=== PATIENT | female | born 1985 | race Caucasian/White ===

== ENCOUNTER → 2017-04-25 | Outpatient (CLI) | payer OTHER ==
[~2017-04-25] MED LIST: CEPH-38 PO; HYDR-2890 PO; HYDR-34 PO; NAPR-243 PO; ONDAN4ODT PO; PNT40TEC PO; SULF-222 PO
--- NOTE | 2017-04-25 08:11 | Diagnostic Imaging Report ---
PROCEDURE: US Gallbladder. TECHNIQUE: Multiple real-time grayscale images were obtained over the right upper quadrant in various projections. INDICATION: Right upper quadrant pain. FINDINGS: The liver is normal in size and without focal lesions. There is no intrahepatic or extrahepatic biliary ductal dilatation. The common bile duct measures 5 mm. There is no cholelithiasis, gallbladder wall thickening, or pericholecystic fluid. The right kidney is normal in appearance. There is no ascites. IMPRESSION: Essentially unremarkable right upper quadrant ultrasound. Dictated by: Dictated on workstation # [id number]
== END ==
LOC: RAD 07:08
PROVIDERS: ATTEND Nurse Practitioner Family
DX: R10.11 Right upper quadrant pain (principal)
CPT/HCPCS: 76705

== ENCOUNTER → 2017-05-03 | Outpatient (CLI) | payer OTHER ==
[2017-05-03 11:41] LABS: BASOPHILS % (AUTO) 0 % (0-10); EOSINOPHILS # (AUTO) 0.2 10^3/uL (0.0-0.3); EOSINOPHILS % (AUTO) 2 % (0-10); HEMATOCRIT 39 % (35-52); HEMOGLOBIN 13.4 G/DL (11.5-16.0); LYMPHOCYTES # (AUTO) 2.1 X 10^3 (1.0-4.0); LYMPHOCYTES % (AUTO) 24 % (12-44); MEAN CORPUSCULAR HEMOGLOBIN 29 PG (25-34); MEAN CORPUSCULAR HGB CONC 35 G/DL (32-36); MEAN CORPUSCULAR VOLUME 84 FL (80-99); MEAN PLATELET VOLUME 10.5 FL (7.4-10.4); MONOCYTES # (AUTO) 0.5 X 10^3 (0.0-1.0); MONOCYTES % (AUTO) 5 % (0-12); NEUTROPHILS # (AUTO) 5.9 X 10^3 (1.8-7.8); NEUTROPHILS % (AUTO) 68 % (42-75); PLATELET COUNT 273 10^3/uL (130-400); RED BLOOD COUNT 4.63 10^6/uL (4.35-5.85); RED CELL DISTRIBUTION WIDTH 13.7 % (10.0-14.5); WHITE BLOOD COUNT 8.6 10^3/uL (4.3-11.0)
[2017-05-03 12:07] LABS: ALANINE AMINOTRANSFERASE 15 U/L (0-55); ALBUMIN 4.4 GM/DL (3.2-4.5); ALKALINE PHOSPHATASE 63 U/L (40-136); BILIRUBIN,TOTAL 0.5 MG/DL (0.1-1.0); BUN/CREATININE RATIO 22; CALCIUM 9.5 MG/DL (8.5-10.1); CARBON DIOXIDE 24 MMOL/L (21-32); CHLORIDE 106 MMOL/L (98-107); CREATININE SERUM 0.63 MG/DL (0.60-1.30); GFR ESTIMATED > 60; GLUCOSE 87 MG/DL (70-105); POTASSIUM 3.6 MMOL/L (3.6-5.0); SODIUM 138 MMOL/L (135-145); TOTAL PROTEIN 7.4 GM/DL (6.4-8.2)
== END ==
LOC: LAB 11:23
PROVIDERS: ATTEND Nurse Practitioner Family
DX: R10.30 Lower abdominal pain, unspecified (principal)
CPT/HCPCS: 36415; 80053; 84702; 85025

== ENCOUNTER → 2017-08-12 | Outpatient (CLI) | payer OTHER ==
--- NOTE | 2017-08-12 11:53 | Diagnostic Imaging Report ---
PROCEDURE: US Non-ob pelvis comp/trans. TECHNIQUE: Multiple realtime grayscale images were obtained of the pelvis in various projections endovaginally. Transabdominal imaging was also performed. INDICATION: Pelvic pain and enlarged uterus. FINDINGS: The uterus measures 7.9 x 5.0 x 4.3 cm. No uterine mass is detected. Endometrium is 6 mm in thickness. The right ovary measures 5.8 x 5.5 x 4.5 cm and the left ovary measures 4.8 x 4.6 x 3.4 cm. Right ovary does contain a 4.6 cm complex cyst. There is blood flow to the right ovary. No free fluid is seen. IMPRESSION: 4.6 cm complex cystic mass right ovary, likely hemorrhagic. Followup ultrasound in 4-6 weeks could be obtained to confirm clearing. Dictated by: Dictated on workstation # [id number]
== END ==
LOC: RAD 10:34
PROVIDERS: ATTEND Obstetrics & Gynecology
DX: N83.291 Other ovarian cyst, right side (principal); N85.2 Hypertrophy of uterus
CPT/HCPCS: 76830; 76856

== ENCOUNTER 2017-09-09 06:27 | Emergency (ER) | payer OTHER ==
[~2017-09-09] VITALS: Ht 175.3 cm; Wt 117.9 kg
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
[2017-09-09 07:15] LABS: BILIRUBIN,URINE NEGATIVE (NEGATIVE); CLARITY,URINE SLIGHTLY CLOUDY; COLOR,URINE YELLOW; GLUCOSE, URINE (UA) NEGATIVE (NEGATIVE); KETONES,URINE NEGATIVE (NEGATIVE); LEUKOCYTE ESTERASE ,URINE NEGATIVE (NEGATIVE); NITRITE,URINE NEGATIVE (NEGATIVE); PH,URINE 6 (5-9); PROTEIN,URINE 1+ (NEGATIVE); UROBILINOGEN,URINE NORMAL (NORMAL)
--- NOTE | 2017-09-09 07:23 | ED Abdominal Pain ---
General Chief Complaint: Abdominal/GI Problems Stated Complaint: PELVIC PAIN Nursing Triage Note: PELVIC/ABDOMINAL PAIN Sepsis Screen: No Definite Risk (ANDREW SARAH) History of Present Illness Date Seen by Provider: Sep 09, 2017 Time Seen by Provider: 06:50 Initial Comments This is a 31 y.o female that presented to the ED with chief complaint of sharp lower abdominal and pelvic pain that began suddenly at 0500 this morning 09/09. Pain began as a 10/10 but has subsided down to a 5/10. Pt was recently seen by Dr. Yanes on 09/11 for 4-5 months of painful heavy periods. Pt was found to have a 4 cm hemorrhagic cyst on the R ovary. Pt LMP was on August 08. She states that she was suppose to start on Monday 09/04, but has not started her next period. Pt admits to feeling hot and cold, nausea, mild back pain, and dizziness; denies vomiting, diarrhea, constipation, urinary or vaginal symptoms. Pt is unsure if she is . (ANDREW SARAH STUDENT) Allergies and Home Medications Allergies Coded Allergies: Penicillins (Unverified Allergy, Mild, 08/09/08) Home Medications Hydrocodone/Acetaminophen 1 Each Tablet, 1 EACH PO Q6H PRN for PAIN-MODERATE TO SEVERE Prescribed by: SANDRA PAL on 09/09/17 0848 Ondansetron 4 Mg Tab.rapdis, 4 MG SL Q4H PRN for NAUSEA/VOMITING-1ST LINE Prescribed by: SANDRA PAL on 09/09/17 0848 Patient Home Medication List Home Medication List Reviewed: Yes (ANDREW SARAH STUDENT) Review of Systems Constitutional: chills, dizziness, fever EENTM: No Symptoms Reported Respiratory: No Symptoms Reported Cardiovascular: No Symptoms Reported Gastrointestinal: Abdominal Pain; Denies Blood Streaked Stools, Denies Constipated, Denies Diarrhea; Nausea; Denies Poor Fluid Intake, Denies Vomiting Genitourinary: Denies Burning, Denies Discharge, Denies Frequency, Denies Pain Musculoskeletal: back pain Skin: no symptoms reported Psychiatric/Neurological: No Symptoms Reported Endocrine: No Symptoms Reported Hematologic/Lymphatic: No Symptoms Reported (ANDREW SARAH STUDENT) Past Siaxqnp-Kxhmgt-Fwadxt Hx Patient Social History Alcohol Use: Denies Use Recreational Drug Use: No Smoking Status: Never a Smoker 2nd Hand Smoke Exposure: No Recent Foreign Travel: No Contact w/Someone Who Travel: No Recent Infectious Disease Expo: No Recent Hopitalizations: No (MARYBETHANDREW [employer] JEN) Immunizations Up To Date Tetanus Booster (TDap): Unknown Date of Influenza Vaccine: Nov 21, 2010 (ISAACSHANDRAOWENANDREW) Seasonal Allergies Seasonal Allergies: No (ISAACANDREW CAM [employer] JEN) Past Medical History Surgeries: Yes (COLONOSCOPY) Orthopedic Respiratory: No Cardiac: No Neurological: No Last Menstrual Period: Aug 15, 2017 Genitourinary: No Gastrointestinal: No 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 oz. 117.304763pb; 39.57 BMI Method:Stated General Appearance: mild distress HEENT: PERRL/EOMI, normal ENT inspection, pharynx normal Respiratory: chest non-tender, lungs clear, normal breath sounds, no respiratory distress, no accessory muscle use Cardiovascular: normal peripheral pulses, regular rate, rhythm, no edema, no gallop, no JVD, no murmur Gastrointestinal: normal bowel sounds, soft, no organomegaly, no pulsatile mass ; No distended, No guarding; tenderness (Suprapubic, RLQ and LUQ tenderness with palpation) Extremities: normal range of motion, non-tender, normal inspection, no pedal edema, no calf tenderness, normal capillary refill Back: normal inspection, no CVA tenderness, no vertebral tenderness Neurologic/Psychiatric: alert, normal mood/affect, oriented x 3 Skin: normal color, warm/dry; No ecchymosis (ANDREW SARAH [employer]) Progress/Results/Core Measures Results/Orders Lab Results Laboratory Tests Test 09/09/17 06:40 09/09/17 07:50 Range/Units Urine Color YELLOW Urine Clarity SLIGHTLY CLOUDY Urine pH 6 5-9 Urine Specific [place] 1.020 1.016-1.022 Urine Protein 1+ H NEGATIVE Urine Glucose (UA) NEGATIVE NEGATIVE Urine Ketones NEGATIVE NEGATIVE Urine Nitrite NEGATIVE NEGATIVE Urine Bilirubin NEGATIVE NEGATIVE Urine Urobilinogen NORMAL NORMAL MG/DL Urine Leukocyte Esterase NEGATIVE NEGATIVE Urine RBC (Auto) 1+ H NEGATIVE Urine RBC 0-2 /HPF Urine WBC RARE /HPF Urine Squamous Epithelial Cells 5-10 /HPF Urine Crystals NONE /LPF Urine Bacteria FEW H /HPF Urine Casts NONE /LPF Urine Mucus SMALL H /LPF Urine Culture Indicated NO White Blood Count 9.0 4.3-11.0 10^3/uL Red Blood Count 4.90 4.35-5.85 10^6/uL Hemoglobin 14.2 11.5-16.0 G/DL Hematocrit 40 35-52 % Mean Corpuscular Volume 82 80-99 FL Mean Corpuscular Hemoglobin 29 25-34 PG Mean Corpuscular Hemoglobin Concent 35 32-36 G/DL Red Cell Distribution Width 13.7 10.0-14.5 % Platelet Count 248 130-400 10^3/uL Mean Platelet Volume 10.2 7.4-10.4 FL Neutrophils (%) (Auto) 82 H 42-75 % Lymphocytes (%) (Auto) 12 12-44 % Monocytes (%) (Auto) 5 0-12 % Eosinophils (%) (Auto) 1 0-10 % Basophils (%) (Auto) 0 0-10 % Neutrophils # (Auto) 7.4 1.8-7.8 X 10^3 Lymphocytes # (Auto) 1.1 1.0-4.0 X 10^3 Monocytes # (Auto) 0.5 0.0-1.0 X 10^3 Eosinophils # (Auto) 0.1 0.0-0.3 10^3/uL Basophils # (Auto) 0.0 0.0-0.1 10^3/uL Sodium Level 138 135-145 MMOL/L Potassium Level 3.6 3.6-5.0 MMOL/L Chloride Level 106 98-107 MMOL/L Carbon Dioxide Level 25 21-32 MMOL/L Anion Gap 7 5-14 MMOL/L Blood Urea Nitrogen 11 7-18 MG/DL Creatinine 0.70 0.60-1.30 MG/DL Estimat Glomerular Filtration Rate > 60 BUN/Creatinine Ratio 16 Glucose Level 110 H 70-105 MG/DL Calcium Level 9.5 8.5-10.1 MG/DL Total Bilirubin 0.7 0.1-1.0 MG/DL Aspartate Amino Transf (AST/SGOT) 15 5-34 U/L Alanine Aminotransferase (ALT/SGPT) 10 0-55 U/L Alkaline Phosphatase 60 40-136 U/L Total Protein 7.6 6.4-8.2 GM/DL Albumin 4.5 3.2-4.5 GM/DL Serum Test, Qualitative NEGATIVE NEGATIVE (SANDRA SAINZ MD) My Orders Orders - SANDRA SAINZ MD Cbc With Automated Diff (09/09/17 07:01) Comprehensive Metabolic Panel (09/09/17 07:01) Hcg,Qualitative Serum (09/09/17 07:01) Ua Culture If Indicated (09/09/17 07:01) Saline Lock/Iv-Start (09/09/17 07:01) Us Non Ob Pelvis Comp/Transvag (09/09/17 07:01) Fentanyl Injection (Sublimaze Injection (09/09/17 07:45) Ondansetron Injection (Zofran Injectio (09/09/17 07:45) Ketorolac Injection (Toradol Injection) (09/09/17 08:45) (SANDRA SAINZ MD) Medications Given in ED (SANDRA SAINZ MD) Vital Signs/I&O 09/09/17 09/09/17 09/09/17 09/09/17 06:40 07:48 08:50 09:17 Temp 97.5 97.5 97.5 97.5 Pulse 77 75 Resp 18 18 B/P (MAP) 138/93 (108) 120/74 (108) Pulse Ox 100 96 O2 Delivery Room Air Room Air (SANDRA SAINZ MD) Blood Pressure Mean: 108 Progress Progress Note #1: Time: 07:00 Progress Note Pt seen and examined, due to patient presentation and history I suspect the patient ovarian mass has ruptured. Will order US to confirm and R/O torsion. Patient denied offer of pain and nausea medication at this time. Urine was negative. Progress Note #2: Time: 08:19 Progress Note Patient changed her mind and requested pain mediation, Fentanyl was administered.US shows free fluid in pelvis, R ovarian cyst was not visualized. L ovary shows a complex hemorrhagic cyst was visualized as well as a uterine fibroid. Discussed the case with Dr. Yanes, he advised to control patients symptoms and have her F/U in the clinic for reevaluation. (ANDREW SARAH MED STUDENT) Progress Note : Progress Note I have personally interviewed, seen, and examined this patient along with Andrew's DAWN Sarah student. I agree with her history, exam, assessment, plan, and documentation. Patient's test was negative. Labs were otherwise unremarkable. Repeat ultrasound showed resolution of right ovarian cyst but development of a left ovarian cyst. There is also some suspicion of a uterine fibroid. Patient's pain was treated with fentanyl. Nausea was treated with Zofran. Pain was further treated with Toradol before dismissal. I suspect her right ovarian cyst ruptured this morning causing her increase in pain. Case was reviewed with Dr. YANES who advised symptom management and follow-up in the clinic. See discharge instructions. My exam is as follows: Gen.: Alert, oriented, in mild distress from pain HEENT: Normocephalic and atraumatic, mucous membranes moist Heart: Regular rate and rhythm without murmur Lungs: Clear to auscultation bilaterally with normal effort Abdomen: Mild to moderate tenderness to palpation over the lower abdomen, soft, nondistended Skin: Warm and dry without rashes Extremities: Normal to inspection Neuropsych: Alert, oriented, appropriate mood and affect, grossly neurologically intact (SANDRA SAINZ MD) Diagnostic Imaging Diagonstic Imaging: Ultrasound Plain Films/CT/US/NM/MRI: pelvis Comments US report reviewed by me, see report by me: NAME[facility] REC#: [id number] PT STATUS: REG ER : 1985 PHYSICIAN: SANDRA SAINZ MD ADMIT DATE: 09/09/17/ER Draft Date of Exam:09/09/17 US NON OB PELVIS COMP/TRANSVAG INDICATION: Generalized pelvic pain with history of cyst. TECHNIQUE: Multiple real time veras scale sonographic images were obtained of the pelvis transabdominally and transvaginally. CORRELATION STUDY: 08/12/2017 FINDINGS: UTERUS/ENDOMETRIUM: Uterus measures 8.8 x 5.4 x 5.0 cm. Endometrial thickness is 8 mm. There is an area of heterogeneity along the lower aspect on the left side favoring probable fibroid of 1.0 x 1.5 x 1.2 cm. RIGHT OVARY: Not visualized, likely obscured by overlying bowel gas.. LEFT OVARY: 3.8 x 4.7 x 3.6 cm.. Complex predominantly hypoechoic masses of the left ovary are present. Larger one, probable hemorrhagic cyst 3.8 x 3.4 x 2.4 cm in size. An additional, somewhat thick-walled likely hemorrhagic cyst also measures 2.7 x 2.8 x 1.7 cm. There is blood flow to the left ovary. Trace amount of pelvic fluid is present. IMPRESSION: 1. Probable fibroid uterus. 2. Complex left ovarian cyst. This may reflect a hemorrhagic cyst. 3. The right ovary and the previously demonstrated complex cyst cannot be identified on this followup study. Followup ultrasound imaging after approximately 2 to 3 menstrual cycles would be recommended for reassessment. Dictated on workstation # [id number] Dict: 09/09/17 0752 Trans: 09/09/17 0803 [facility] [id number] Interpreted by: CAMELIA ACOSTA DO Electronically signed by: (ANDREW SARAH STUDENT) Consults : Consulting Physician: Bob (ANDREW SARAH STUDENT) Departure Impression Primary Impression: Left ovarian cyst Additional Impressions: Pelvic pain Nausea Disposition: 01 HOME, SELF-CARE Condition: Improved Departure-Patient Inst. Decision time for Depature: 08:40 (SANDRA SAINZ MD) Referrals: MARLON ALFONSO MD (PCP/Family) Primary Care Physician Patient Instructions: Ovarian Cyst (DC) Add. Discharge Instructions: Drink plenty of clear liquids. You may take ibuprofen up to 600 mg every 6 hours as needed and/or Tylenol ( acetaminophen) up to 1000 mg every 6 hours as needed for pain. For pain not controlled by umap-pih-qyrilvm medications you may take hydrocodone as prescribed. Use Zofran as prescribed for nausea and vomiting. Contact Dr. YANES's office for follow-up instructions. Return to emergency room if symptoms are worsening. All discharge instructions reviewed with patient and/or family. Voiced understanding. Scripts Hydrocodone/Acetaminophen (Hydrocodone-Acetamin 5-325 mg) 1 Each Tablet 1 EACH PO Q6H PRN for PAIN-MODERATE TO SEVERE, #10 TAB Prov: SANDRA SAINZ MD 09/09/17 Ondansetron (Zofran Odt) 4 Mg Tab.rapdis 4 MG SL Q4H PRN for NAUSEA/VOMITING-1ST LINE, #10 TAB Prov: SANDRA SAINZ MD 09/09/17 Copy Copies To 1: DANIELA YANES MCKENZIE MED STUDENT Sep 09, 2017 07:23 SANDRA SAINZ MD Sep 09, 2017 08:48
[2017-09-09 07:25] LABS: BACTERIA,URINE FEW /HPF; RBC,URINE 0-2 /HPF; WBC,URINE RARE /HPF
[2017-09-09] MEDS ORDERED: fentaNYL INJECTION 100 MCG/2 ML AMP IVP ONE (07:45)
[2017-09-09] MEDS ORDERED: ONDANSETRON 4 MG/2 ML (SDV) Z0FRAN IVP ONE (07:45)
[2017-09-09 07:59] LABS: BASOPHILS % (AUTO) 0 % (0-10); EOSINOPHILS # (AUTO) 0.1 10^3/uL (0.0-0.3); EOSINOPHILS % (AUTO) 1 % (0-10); HEMATOCRIT 40 % (35-52); HEMOGLOBIN 14.2 G/DL (11.5-16.0); LYMPHOCYTES # (AUTO) 1.1 X 10^3 (1.0-4.0); LYMPHOCYTES % (AUTO) 12 % (12-44); MEAN CORPUSCULAR HEMOGLOBIN 29 PG (25-34); MEAN CORPUSCULAR HGB CONC 35 G/DL (32-36); MEAN CORPUSCULAR VOLUME 82 FL (80-99); MEAN PLATELET VOLUME 10.2 FL (7.4-10.4); MONOCYTES # (AUTO) 0.5 X 10^3 (0.0-1.0); MONOCYTES % (AUTO) 5 % (0-12); NEUTROPHILS # (AUTO) 7.4 X 10^3 (1.8-7.8); NEUTROPHILS % (AUTO) 82 % (42-75); PLATELET COUNT 248 10^3/uL (130-400); RED CELL DISTRIBUTION WIDTH 13.7 % (10.0-14.5)
--- NOTE | 2017-09-09 08:03 | Diagnostic Imaging Report ---
INDICATION: Generalized pelvic pain with history of cyst. TECHNIQUE: Multiple real time veras scale sonographic images were obtained of the pelvis transabdominally and transvaginally. CORRELATION STUDY: 08/12/2017 FINDINGS: UTERUS/ENDOMETRIUM: Uterus measures 8.8 x 5.4 x 5.0 cm. Endometrial thickness is 8 mm. There is an area of heterogeneity along the lower aspect on the left side favoring probable fibroid of 1.0 x 1.5 x 1.2 cm. RIGHT OVARY: Not visualized, likely obscured by overlying bowel gas.. LEFT OVARY: 3.8 x 4.7 x 3.6 cm.. Complex predominantly hypoechoic masses of the left ovary are present. Larger one, probable hemorrhagic cyst 3.8 x 3.4 x 2.4 cm in size. An additional, somewhat thick-walled likely hemorrhagic cyst also measures 2.7 x 2.8 x 1.7 cm. There is blood flow to the left ovary. Trace amount of pelvic fluid is present. IMPRESSION: 1. Probable fibroid uterus. 2. Complex left ovarian cyst. This may reflect a hemorrhagic cyst. 3. The right ovary and the previously demonstrated complex cyst cannot be identified on this followup study. Followup ultrasound imaging after approximately 2 to 3 menstrual cycles would be recommended for reassessment. Dictated by: Dictated on workstation # [id number]
[2017-09-09 08:18] LABS: ALANINE AMINOTRANSFERASE 10 U/L (0-55); ALBUMIN 4.5 GM/DL (3.2-4.5); ALKALINE PHOSPHATASE 60 U/L (40-136); BILIRUBIN,TOTAL 0.7 MG/DL (0.1-1.0); BUN/CREATININE RATIO 16; CALCIUM 9.5 MG/DL (8.5-10.1); CARBON DIOXIDE 25 MMOL/L (21-32); CHLORIDE 106 MMOL/L (98-107); GFR ESTIMATED > 60; GLUCOSE 110 MG/DL (70-105); POTASSIUM 3.6 MMOL/L (3.6-5.0); SODIUM 138 MMOL/L (135-145); TOTAL PROTEIN 7.6 GM/DL (6.4-8.2)
[2017-09-09] MEDS ORDERED: KETOROLAC 30 MG/ML VIAL IVP ONE (08:45)
[2017-09-09] MEDS ORDERED: ONDA4TAB8 SL (08:48)
[2017-09-09] MEDS ORDERED: HYDR-3812 PO (08:48)
[2017-09-09 09:17] VITALS: BP 120/74
== END 2017-09-09 09:17 | disposition home or self-care (01) ==
LOC: EDUNIT# 06:27 → ER 06:30
DX: N83.202 Unspecified ovarian cyst, left side (principal); Z88.0 Allergy status to penicillin
CPT/HCPCS: 36415; 76830; 76856; 80053; 81000; 84703; 85025; 96374; 96375

== ENCOUNTER 2018-02-10 05:38 | Outpatient (CLI) | payer OTHER ==
[~2018-02-10] VITALS: Ht 175.3 cm; Wt 114.8 kg
[~2018-02-10 05:38] MED LIST changes: +HYDR-3812 PO; +ONDA4TAB8 SL
[2018-02-10] MEDS ORDERED: OMEP40CA36 PO (12:03)
[2018-02-10] MEDS ORDERED: METF-397 PO (12:03)
== END 2018-02-10 12:13 ==
LOC: PREOP 05:38
PROVIDERS: ATTEND Obstetrics & Gynecology
DX: Z01.818 Encounter for other preprocedural examination (principal); R10.2 Pelvic and perineal pain

== ENCOUNTER 2018-02-16 07:07 | Day surgery (SDC) | payer OTHER ==
[~2018-02-16] VITALS: Ht 175.3 cm; Wt 116.6 kg
[~2018-02-16 07:07] MED LIST changes: +METF-397 PO; +OMEP40CA36 PO
--- OUTSIDE RECORDS SUMMARY | 2018-02-16 07:13 | XMS REPORT | CCD ---
Author Author Angelika Winn MD, [facility] Address [address] [place] [address] Phone Care Team Providers Care Fundraising Manager Name Role Phone PP Unavailable CCM Unavailable Summary Purpose Interface Exchange Insurance Providers Payer name Policy type / Coverage type Covered constitution party ID Effective Begin Date Effective End Date [facility] [id number] 2015 Unknown Family history Sister Diagnosis Age At Onset No Known Diseases N/A Mother Diagnosis Age At Onset Arthritis Unknown Hyperlipidemia Unknown Depression Unknown Father Diagnosis Age At Onset defect Unknown Diabetes mellitus Type 2 Unknown Hyperlipidemia Unknown Hypertension Unknown Social History Social History Element Codes Description Effective Dates Marital status Unknown Jennifer 04/25/[address]: 2742988 Former smoker 02/10/[address]: 512364899 Never drinks alcohol 02/10/2015 Allergies, Adverse Reactions, Alerts Substance Reaction Codes Entered Date Inactivated Date Status Penicillin Unknown 05/20/2014 No Inactive Date Active Past Medical History Illness Codes Condition Status Onset Date Resolved Date Acute laryngopharyngitis ICD-9: 465.0 ICD-10: J06.0 Active 10/07/2015 Unknown Acute upper respiratory infection, unspecified ICD-9: 465.9 ICD-10: J06.9 Active 02/09/2018 Unknown Cough ICD-9: 786.2 ICD-10: R05 Active 02/09/2018 Unknown Encounter for general adult medical examination with abnormal findings ICD-9: V70.0 ICD-10: Z00.01 Active 04/22/2017 Unknown Gastro-esophageal reflux disease without esophagitis ICD-9: 530.81 ICD-10: K21.9 Active 10/18/2016 Unknown Right upper quadrant pain ICD-9: 789.01 ICD-10: R10.11 Active 04/22/2017 Unknown Fever presenting with conditions classified elsewhere ICD-9: 780.61 ICD-10: R50.81 Active 11/18/2016 Unknown Other conditions associated with Lyme disease ICD-9: 088.81 ICD-10: A69.29 Active 11/18/2016 Unknown 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 ICD-9: 082.0 ICD-10: A77.0 Active 11/18/2016 Unknown Bitten or stung by nonvenomous insect and other nonvenomous arthropods, initial encounter ICD-9: 919.4 ICD-10: W57.XXXA Active 10/18/2016 Unknown Rash and other nonspecific skin eruption ICD-9: 782.1 ICD-10: R21 Active 10/18/2016 Unknown Dysuria ICD-9: 788.1 ICD-10: R30.0 Active 07/08/2016 Unknown Encounter for general adult medical examination without abnormal findings ICD-9: V70.0 ICD-10: Z00.00 Active 05/20/2016 Unknown Other obesity due to excess calories ICD-9: 278.00 ICD-10: E66.09 Active 05/20/2016 Unknown Other acute sinusitis ICD-9: 461.8 ICD-10: J01.80 Active 10/07/2015 Unknown Other allergic rhinitis ICD-9: 477.8 ICD-10: J30.89 Active 10/07/2015 Unknown Elevated blood-pressure reading, without diagnosis of hypertension ICD-9: 796.2 ICD-10: R03.0 Active 04/24/2015 Unknown Irregular menstruation, unspecified ICD-9: 626.4 ICD-10: N92.6 Active 04/24/2015 Unknown Ganglion, right ankle and foot ICD-9: 727.43 ICD-10: M67.471 Active 02/26/2015 Unknown Pain in right ankle and joints of right foot ICD-9: 719.47 ICD-10: M25.571 Active 02/26/2015 Unknown Cellulitis of abdominal wall ICD-9: 682.2 ICD-10: L03.311 Active 02/09/2015 Unknown Elevated blood pressure ICD-9: 796.2 Active 08/01/2014 Unknown Fatigue ICD-9: 780.79 Active 08/01/2014 Unknown Missed period ICD-9: 626.4 Active 08/01/2014 Unknown Neck pain ICD-9: 723.1 Active 08/01/2014 Unknown PREVENTIVE PHYSICAL EXAM ICD-9: V70.0 Active 05/20/2014 Unknown Problems Condition Codes Effective Dates Condition Status Acute laryngopharyngitis ICD-9: 465.0 ICD-10: J06.0 10/07/2015 Active Acute upper respiratory infection, unspecified ICD-9: 465.9 ICD-10: J06.9 02/09/2018 Active Cough ICD-9: 786.2 ICD-10: R05 02/09/2018 Active Encounter for general adult medical examination with abnormal findings ICD-9: V70.0 ICD-10: Z00.01 04/22/2017 Active Gastro-esophageal reflux disease without esophagitis ICD-9: 530.81 ICD-10: K21.9 10/18/2016 Active Right upper quadrant pain ICD-9: 789.01 ICD-10: R10.11 04/22/2017 Active Fever presenting with conditions classified elsewhere ICD-9: 780.61 ICD-10: R50.81 11/18/2016 Active Other conditions associated with Lyme disease ICD-9: 088.81 ICD-10: A69.29 11/18/2016 Active 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 ICD-9: 082.0 ICD-10: A77.0 11/18/2016 Active Bitten or stung by nonvenomous insect and other nonvenomous arthropods, initial encounter ICD-9: 919.4 ICD-10: W57.XXXA 10/18/2016 Active Rash and other nonspecific skin eruption ICD-9: 782.1 ICD-10: R21 10/18/2016 Active Dysuria ICD-9: 788.1 ICD-10: R30.0 07/08/2016 Active Encounter for general adult medical examination without abnormal findings ICD-9: V70.0 ICD-10: Z00.00 05/20/2016 Active Other obesity due to excess calories ICD-9: 278.00 ICD-10: E66.09 05/20/2016 Active Other acute sinusitis ICD-9: 461.8 ICD-10: J01.80 10/07/2015 Active Other allergic rhinitis ICD-9: 477.8 ICD-10: J30.89 10/07/2015 Active Elevated blood-pressure reading, without diagnosis of hypertension ICD-9: 796.2 ICD-10: R03.0 04/24/2015 Active Irregular menstruation, unspecified ICD-9: 626.4 ICD-10: N92.6 04/24/2015 Active Ganglion, right ankle and foot ICD-9: 727.43 ICD-10: M67.471 02/26/2015 Active Pain in right ankle and joints of right foot ICD-9: 719.47 ICD-10: M25.571 02/26/2015 Active Cellulitis of abdominal wall ICD-9: 682.2 ICD-10: L03.311 02/09/2015 Active Elevated blood pressure ICD-9: 796.2 08/01/2014 Active Fatigue ICD-9: 780.79 08/01/2014 Active Missed period ICD-9: 626.4 08/01/2014 Active Neck pain ICD-9: 723.1 08/01/2014 Active PREVENTIVE PHYSICAL EXAM ICD-9: V70.0 05/20/2014 Active Medications Medication Codes Instructions Start Date Stop Date Status Fill Instructions prednisone 20 mg tablet RxNorm: 203904 2 Tablet(s) PO daily 02/11/2018 Active Zithromax Z-Juni 250 mg tablet RxNorm: 233926 1 Tablet(s) PO UD 02/09/2018 02/13/2018 Active promethazine 25 mg tablet RxNorm: 319561 1 Tablet(s) PO TID as needed nausea 02/08/2018 02/12/2018 Active promethazine 25 mg tablet RxNorm: 180940 1 Tablet(s) PO TID as needed nausea 02/08/2018 02/07/2018 Inactive omeprazole 20 mg capsule,delayed release RxNorm: 040097 1 Capsule(s) PO BID 10/14/2017 01/11/2018 Inactive meclizine 25 mg tablet RxNorm: 383196 1 Tablet(s) PO TID as needed Dizziness 05/02/2017 05/01/2017 Inactive meclizine 25 mg tablet RxNorm: 053570 1 Tablet(s) PO TID as needed Dizziness 05/02/2017 05/31/2017 Inactive Prilosec OTC 20 mg tablet,delayed release RxNorm: 619077 1 Tablet(s) PO BID 05/02/2017 05/01/2017 Inactive Prilosec OTC 20 mg tablet,delayed release RxNorm: 462269 1 Tablet(s) PO BID 05/02/2017 05/31/2017 Inactive dapsone 100 mg tablet RxNorm: 714044 1 Tablet(s) PO daily 201611/27/2016 Inactive doxycycline hyclate 100 mg capsule RxNorm: 0468160 1 Capsule(s) PO BID 10/20/2016 11/18/2016 Inactive stop vitamin while on doxy omeprazole 20 mg capsule,delayed release RxNorm: 420886 1 Capsule(s) PO daily 10/18/2016 10/31/2016 Inactive doxycycline hyclate 100 mg capsule RxNorm: 7023482 1 Capsule(s) PO BID 10/18/2016 10/19/2016 Inactive stop vitamin while on doxy Saxenda 3 mg/0.5 mL (18 mg/3 mL) subcutaneous pen injector RxNorm: 0272481 3 Milliliter(s) SQ daily 05/21/20162016 Inactive Saxenda 3 mg/0.5 mL (18 mg/3 mL) subcutaneous pen injector RxNorm: 8922966 Milliliter(s) SQ 05/20/2016 05/20/2016 Inactive Kenalog 40 mg/mL suspension for injection RxNorm: 3786928 Milliliter(s) Inj 10/08/2015 10/08/2015 Inactive Zithromax Z-Juni 250 mg tablet RxNorm: 093522 1 Tablet(s) PO UD 10/08/2015 05/19/2016 Inactive labetalol 100 mg tablet RxNorm: 523350 1 Tablet(s) PO BID 04/2804/28/2015 Inactive labetalol 100 mg tablet RxNorm: 639437 1 Tablet(s) PO BID 04/2810/07/2015 Inactive Cipro 500 mg tablet RxNorm: 178568 1 Tablet(s) PO BID 201505/19/2016 Inactive Cipro 500 mg tablet RxNorm: 992651 1 Tablet(s) PO BID 201504/25/2015 Inactive Bactrim DS 800 mg-160 mg tablet RxNorm: 345172 1 Tablet(s) PO BID 02/10/2015 02/16/2015 Inactive metformin 500 mg tablet RxNorm: 720599 1 Tablet(s) PO BID No Start Date Active Vitamin C 500 mg tablet RxNorm: 279787 1 Tablet(s) PO daily No Start Date Active + DHA oral RxNorm: oral No Start Date 02/08/2018 Inactive multivitamin chewable tablet RxNorm: 1 Tablet(s) PO daily No Start Date 11/17/2016 Inactive Medication Administered Medication Codes Instructions Start Date Status Kenalog 40 mg/mL suspension for injection RxNorm: 9266984 Milliliter 10/08/2015 No longer Active Immunizations No Immunization data Assessments Condition Codes Effective Dates Acute upper respiratory infection, unspecified ICD-10: J06.9 ICD-9: 465.9 02/09/2018 Acute laryngopharyngitis ICD-10: J06.0 ICD-9: 465.0 02/09/2018 Cough ICD-10: R05 ICD-9: 786.2 02/09/2018 Right upper quadrant pain ICD-10: R10.11 ICD-9: 789.01 04/22/2017 Encounter for general adult medical examination with abnormal findings ICD-10: Z00.01 ICD-9: V70.0 04/22/2017 Gastro-esophageal reflux disease without esophagitis ICD-10 : K21.9 ICD-9: 530.81 04/22/2017 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 ICD-10: A77.0 ICD-9: 082.0 11/18/2016 Other conditions associated with Lyme disease ICD-10: A69.29 ICD-9: 088.81 11/18/2016 Fever presenting with conditions classified elsewhere ICD-10 : R50.81 ICD-9: 780.61 11/18/2016 Bitten or stung by nonvenomous insect and other nonvenomous arthropods, initial encounter ICD-10: W57.XXXA ICD-9: 919.4 10/18/2016 Rash and other nonspecific skin eruption ICD-10: R21 ICD-9: 782.1 10/18/2016 Dysuria ICD-10: R30.0 ICD-9: 788.1 07/08/2016 Other obesity due to excess calories ICD-10: E66.09 ICD-9: 278.00 05/20/2016 Encounter for general adult medical examination without abnormal findings ICD-10: Z00.00 ICD-9: V70.0 05/20/2016 Other acute sinusitis ICD-10: J01.80 ICD-9: 461.8 10/08/2015 Other allergic rhinitis ICD-10: J30.89 ICD-9: 477.8 10/08/2015 Irregular menstruation, unspecified ICD-10: N92.6 ICD-9: 626.4 04/25/2015 Elevated blood-pressure reading, without diagnosis of hypertension ICD-10: R03.0 ICD-9: 796.2 04/25/2015 Pain in right ankle and joints of right foot ICD-10: M25.571 ICD-9: 719.47 02/27/2015 Ganglion, right ankle and foot ICD-10: M67.471 ICD-9: 727.43 02/27/2015 Cellulitis of abdominal wall ICD-10: L03.311 ICD-9: 682.2 02/10/2015 Elevated blood pressure ICD-9: 796.2 01/2015 Fatigue ICD-9: 780.79 08/02/2014 Neck pain ICD-9: 723.1 08/02/2014 Missed period ICD-9: 626.4 08/02/2014 PREVENTIVE PHYSICAL EXAM ICD-9: V70.0 Reason For Visit Reason For Visit Effective Dates Notes cough 02/09/2018 abdominal pain 04/22/2017 abnormal test results 11/18/2016 arthropod bite 10/18/2016 well woman exam (18-39 years) 05/20/2016 sinus congestion 10/08/2015 blood pressure followup 04/25/2015 ankle pain 02/27/2015 skin lesion 02/10/2015 hypertension 08/02/2014 neck pain 05/20/2014 Results Observation Observation Code Item Item Code Result Date C A/B FLU 1503589 Influenza A Scr Negative 02/09/2018 C A/B FLU 9176562 Influenza B Scr Negative 02/09/2018 C A/B FLU 4302710 Influenza Intrp B AG: PRID:PT:NOSE:NOM:IF See Footnote 02/09/2018 Arjun Mtn Spot'D Fev Igg 481596 RMSF, IGG -TITER IFA 1:128 02/2016 Ehrlichia Chaffeensis Antibody Igg 208480 EHRLICHIA CHAFFEENSIS IGG <1:64 10/22/2016 [place] Spotted Fever Igg/Igm 456444 ARJUN MT SPOTTED FEVER IGM EIA . 10/22/2016 [place] Spotted Fever Igg/Igm 358754 RMSF, IGM 0.32 index 10/22/2016 [place] Spotted Fever Igg/Igm 195042 ARJUN [place] SPOTTED FEVER IGG EIA FLEX . 10/22/2016 [place] Spotted Fever Igg/Igm 807735 RMSF, IGG SCREEN-FLEX Positive 10/22/2016 Ehrlichia Chaffeensis Antibody Igm 624896 EHRLICHIA CHAFFEENSIS IGM < 1:16 10/22/2016 Lymes Western Blot Serum 021835 B. BURGDORFERI, IGG WB Negative 10/21/2016 Lymes Western Blot Serum 796116 B. BURGDORFERI, IGM WB Negative 10/21/2016 Lymes Disease Total Antibodies With Western Blot Reflex [id number] B. BURGDORFERI, IGG/IGM 1.27 LI 10/20/2016 Lymes Disease Total Antibodies With Western Blot Reflex [id number] 10/20/2016 Cbc With Differential Ord2 WBC 7.30 K/ul 10/18/2016 Cbc With Differential Ord2 RBC 4.61 M/ul 10/18/2016 Cbc With Differential Ord2 HGB 13.3 g/dl 10/18/2016 Cbc With Differential Ord2 HCT 40.1 % 10/18/2016 Cbc With Differential Ord2 Neut% 59.9 % 10/18/2016 Cbc With Differential Ord2 MCV 87.0 fl 10/18/2016 Cbc With Differential Ord2 Lymph% 29.2 % 10/18/2016 Cbc With Differential Ord2 MCH 28.9 pg 10/18/2016 Cbc With Differential Ord2 [place]% 7.1 % 10/18/2016 Cbc With Differential Ord2 MCHC 33.2 pg 10/18/2016 Cbc With Differential Ord2 Eos% 3.3 % 10/18/2016 Cbc With Differential Ord2 PLT 282 K/ul 10/18/2016 Cbc With Differential Ord2 Baso% 0.5 % 10/18/2016 Cbc With Differential Ord2 RDW 14.1 % 10/18/2016 Cbc With Differential Ord2 Neut ABS# 4.37 K/ul 10/18/2016 Cbc With Differential Ord2 Lymph ABS# 2.13 K/ul 10/18/2016 Cbc With Differential Ord2 [place] ABS# 0.5 K/ul 10/18/2016 Cbc With Differential Ord2 Eos ABS# 0.2 K/ul 10/18/2016 Cbc With Differential Ord2 Baso ABS# 0.0 K/ul 10/18/2016 Tsh Ord6 hTSH II 2.02 uIU/mL 10/18/2016 Comp Metabolic Eao962 NA 139 mEq/L 10/18/2016 Comp Metabolic Qoh850 K 4.2 mEq/L 10/18/2016 Comp Metabolic Ods057 CL 103 mEq/L 10/18/2016 Comp Metabolic Vmp478 CO2 26.0 mEq/L 10/18/2016 Comp Metabolic Vjp107 ANION GAP 14 10/18/2016 Comp Metabolic Rcq461 GLUCOSE 84 mg/dL 10/18/2016 Comp Metabolic Ykz058 Creat 0.5 mg/dL 10/18/2016 Comp Metabolic Css261 eGFR 158 ml/min/1.73m2 10/18/2016 Comp Metabolic Cck441 BUN 10 mg/dL 10/18/2016 Comp Metabolic Tbn210 B/C Ratio 20.4 Ratio 10/18/2016 Comp Metabolic Nnf896 CALCIUM 9.3 mg/dL 10/18/2016 Comp Metabolic Mnv740 ALK PHOS 67 U/L 10/18/2016 Comp Metabolic Lxl495 AST(SGOT) 11 U/L 10/18/2016 Comp Metabolic Dfm242 ALT(SGPT) 10 U/L 10/18/2016 Comp Metabolic Qoz651 BILI T 0.4 mg/dL 10/18/2016 Comp Metabolic Fly711 ALBUMIN 4.1 g/dL 10/18/2016 Comp Metabolic Esg911 TPRO 6.7 g/dL 10/18/2016 Comp Metabolic Klm010 GLOB 2.6 g/dL 10/18/2016 Comp Metabolic Lri379 A/G Ratio 1.6 Ratio 10/18/2016 Comp Metabolic Nwz780 Osmo 276 mOsmo 10/18/2016 Lipid Ord30 CHOL 185 mg/dL 06/06/2015 Lipid Ord30 HDL 41.0 mg/dl 06/06/2015 Lipid Ord30 TRIG 108 mg/dL 06/06/2015 Lipid Ord30 LDL 122 mg/dL 06/06/2015 Lipid Ord30 C/HDL 4.5 Ratio 06/06/2015 Tsh Ord6 hTSH II 2.10 uIU/mL 04/28/2015 Bhcg Qual Ord68 BHCG Qual Negative 04/25/2015 Cbc With Differential Ord2 WBC 8.95 K/ul 04/25/2015 Cbc With Differential Ord2 RBC 4.62 M/ul 04/25/2015 Cbc With Differential Ord2 HGB 12.8 g/dl 04/25/2015 Cbc With Differential Ord2 HCT 39.6 % 04/25/2015 Cbc With Differential Ord2 Neut% 70.1 % 04/25/2015 Cbc With Differential Ord2 MCV 85.7 fl 04/25/2015 Cbc With Differential Ord2 Lymph% 21.8 % 04/25/2015 Cbc With Differential Ord2 MCH 27.7 pg 04/25/2015 Cbc With Differential Ord2 [place]% 6.1 % 04/25/2015 Cbc With Differential Ord2 MCHC 32.3 pg 04/25/2015 Cbc With Differential Ord2 Eos% 1.8 % 04/25/2015 Cbc With Differential Ord2 PLT 279 K/ul 04/25/2015 Cbc With Differential Ord2 Baso% 0.2 % 04/25/2015 Cbc With Differential Ord2 RDW 14.6 % 04/25/2015 Cbc With Differential Ord2 Neut ABS# 6.27 K/ul 04/25/2015 Cbc With Differential Ord2 Lymph ABS# 1.95 K/ul 04/25/2015 Cbc With Differential Ord2 [place] ABS# 0.6 K/ul 04/25/2015 Cbc With Differential Ord2 Eos ABS# 0.2 K/ul 04/25/2015 Cbc With Differential Ord2 Baso ABS# 0.0 K/ul 04/25/2015 Cbc With Differential Ord2 New Analyzer Notice Please note new ref ranges starting 03-05-2015 due to implemntation of new five part differential hematolgy analyzer. 04/25/2015 Comp Metabolic Irp802 NA 135 mEq/L 04/25/2015 Comp Metabolic Hqy198 K 4.0 mEq/L 04/25/2015 Comp Metabolic Buu352 CL 104 mEq/L 04/25/2015 Comp Metabolic Wey633 CO2 25.0 mEq/L 04/25/2015 Comp Metabolic Vww527 ANION GAP 10 04/25/2015 Comp Metabolic Vbk208 GLUCOSE 88 mg/dL 04/25/2015 Comp Metabolic Spv513 Creat 0.5 mg/dL 04/25/2015 Comp Metabolic Slf647 eGFR 167 ml/min/1.73m2 04/25/2015 Comp Metabolic Ahi967 BUN 9 mg/dL 04/25/2015 Comp Metabolic Eua754 B/C Ratio 19.1 Ratio 04/25/2015 Comp Metabolic Ziz190 CALCIUM 9.1 mg/dL 04/25/2015 Comp Metabolic Grl167 ALK PHOS 61 U/L 04/25/2015 Comp Metabolic Sjr938 AST(SGOT) 13 U/L 04/25/2015 Comp Metabolic Xgc138 ALT(SGPT) 12 U/L 04/25/2015 Comp Metabolic Cul315 BILI T 0.5 mg/dL 04/25/2015 Comp Metabolic Ipo816 ALBUMIN 4.3 g/dL 04/25/2015 Comp Metabolic Ett959 TPRO 7.0 g/dL 04/25/2015 Comp Metabolic Fao133 GLOB 2.7 g/dL 04/25/2015 Comp Metabolic Rma161 A/G Ratio 1.6 Ratio 04/25/2015 Comp Metabolic Yfl539 Osmo 268 mOsmo 04/25/2015 HCG QUANT 7048396 HCG QUANT FOOTNOTE MIU/ML 08/05/2014 TSH 4985845 TSH 2.27 uIU/ML 08/05/2014 CBC 8726044 WBC 8.6 10e9/L 08/02/2014 CBC 5379574 RBC 4.49 10e12/L 08/02/2014 CBC 6688177 HGB 12.7 g/dL 08/02/2014 CBC 7425636 HCT DET 38.1 % 08/02/2014 CBC 5016590 MCV 84.9 fL 08/02/2014 CBC 0812388 MCH 28.3 pg 08/02/2014 CBC 4235261 MCHC 33.3 g/dL 08/02/2014 CBC 2553475 PLT 276 10e9/L 08/02/2014 CBC 6094519 MPV 10.4 fL 08/02/2014 CBC [id number] FINN % 67.0 % 08/02/2014 CBC 7549699 LY % 24.3 % 08/02/2014 CBC 9415835 MON % 6.5 % 08/02/2014 CBC 1993514 EOS % 2.0 % 08/02/2014 CBC [id number] BASO % 0.2 % 08/02/2014 CBC 4336443 RDW 14.2 % 08/02/2014 CBC [id number] ABS FINN 5.76 10e9/L 08/02/2014 CBC [id number] ABS LYMPH 2.09 10e9/L 08/02/2014 CBC [id number] ABS MONO 0.56 10e9/L 08/02/2014 CBC 6917723 ABS EOS 0.17 10e9/L 08/02/2014 CBC [id number] ABS BASO 0.02 10e9/L 08/02/2014 CBC [id number] RDW-SD 43.2 fL 08/02/2014 Review of Systems System Result Effective Dates Constitutional recent illness 02/09/2018 Constitutional No anorexia 02/09/2018 Constitutional No night sweats 2017 Constitutional chills 02/09/2018 Constitutional diaphoresis 02/09/2018 Constitutional fatigue 02/09/2018 Constitutional fever 02/09/2018 Constitutional No insomnia 02/09/2018 Constitutional No malaise 02/09/2018 Constitutional No weight loss 02/09/2018 Constitutional No weight gain 02/09/2018 Eyes No eye discharge 02/09/2018 Eyes No eye erythema 02/09/2018 Ears/Nose/Throat/Neck No dizziness 2017 Ears/Nose/Throat/Neck headache 2017 Ears/Nose/Throat/Neck nasal discharge Ears/Nose/Throat/Neck No otalgia 2017 Ears/Nose/Throat/Neck No sinus congestion 02/09/2018 Ears/Nose/Throat/Neck sore throat 2017 Cardiovascular No chest pain/pressure Respiratory cough 02/09/2018 Gastrointestinal No abdominal pain 2017 Gastrointestinal No constipation 2017 Gastrointestinal diarrhea 02/09/2018 Genitourinary/Nephrology No dysuria 02/09 Musculoskeletal arthralgia(s) 02/09/2018 Dermatologic No rash 02/09/2018 Neurologic No alteration of consciousness 02/09/2018 Constitutional No recent illness 2017 Constitutional No chills 04/22/2017 Constitutional No diaphoresis 04/22/2017 Constitutional No fever 04/22/2017 Eyes No eye erythema 04/22/2017 Ears/Nose/Throat/Neck No nasal discharge 04/22/2017 Cardiovascular No chest pain/pressure 03/2017 Cardiovascular No dyspnea 04/22/2017 Respiratory No cough 04/22/2017 Respiratory No chest congestion 2017 Gastrointestinal abdominal pain 2017 Gastrointestinal No constipation 2017 Gastrointestinal No diarrhea 04/22/2017 Gastrointestinal No vomiting 04/22/2017 Gastrointestinal No nausea 04/22/2017 Gastrointestinal gastroesophageal reflux 04/22/2017 Gastrointestinal gas and bloating 2017 Genitourinary/Nephrology No dysuria 04/22 Musculoskeletal No joint complaint 2017 Dermatologic No rash 04/22/2017 Neurologic No alteration of consciousness 04/22/2017 Neurologic No mental status change 2017 Constitutional No recent illness 2016 Constitutional No chills 11/18/2016 Constitutional No diaphoresis 11/18/2016 Constitutional No fever 11/18/2016 Eyes No blindness 11/18/2016 Ears/Nose/Throat/Neck No nasal allergies 11/18/2016 Ears/Nose/Throat/Neck No nasal discharge 11/18/2016 Cardiovascular No dyspnea 11/18/2016 Cardiovascular No hypertension 2016 Respiratory No cough 11/18/2016 Respiratory No dyspnea 11/18/2016 Gastrointestinal No abdominal pain 2016 Musculoskeletal joint complaint 2016 Neurologic No alteration of consciousness 11/18/2016 Neurologic No mental status change 2016 Psychiatric No anxiety 11/18/2016 Musculoskeletal stiffness 11/18/2016 Musculoskeletal arthralgia(s) 11/18/2016 Constitutional No recent illness 2016 Constitutional No chills 10/18/2016 Constitutional No diaphoresis 10/18/2016 Constitutional No fever 10/18/2016 Eyes No eye erythema 10/18/2016 Ears/Nose/Throat/Neck No nasal discharge 10/18/2016 Ears/Nose/Throat/Neck No nasal allergies 10/18/2016 Cardiovascular No dyspnea 10/18/2016 Cardiovascular No hypertension 2016 Respiratory No cough 10/18/2016 Respiratory No dyspnea 10/18/2016 Gastrointestinal No abdominal pain 2016 Musculoskeletal No joint complaint 2016 Dermatologic rash 10/18/2016 Neurologic No alteration of consciousness 10/18/2016 Neurologic No mental status change 2016 Constitutional No fatigue 05/20/2016 Constitutional No fever 05/20/2016 Constitutional No insomnia 05/20/2016 Eyes No eye discharge 05/20/2016 Eyes No eye erythema 05/20/2016 Ears/Nose/Throat/Neck No headache 2016 Cardiovascular No chest pain/pressure Cardiovascular No edema 05/20/2016 Cardiovascular No near-syncope/dizziness 05/20/2016 Cardiovascular No syncope 05/20/2016 Respiratory No productive sputum 2016 Respiratory No chest congestion 2016 Respiratory No chest tightness 2016 Respiratory No cough 05/20/2016 Respiratory No dyspnea 05/20/2016 Gastrointestinal No abdominal pain 2016 Gastrointestinal No constipation 2016 Gastrointestinal No diarrhea 05/20/2016 Genitourinary/Nephrology No breast complaint 05/20/2016 Genitourinary/Nephrology No dysuria 05/20 Genitourinary/Nephrology No hematuria Genitourinary/Nephrology No urinary urgency 05/20/2016 Genitourinary/Nephrology No vaginal discharge 05/20/2016 Musculoskeletal No joint complaint 2016 Neurologic No alteration of consciousness 05/20/2016 Constitutional No chills 10/08/2015 Constitutional No diaphoresis 10/08/2015 Constitutional No fever 10/08/2015 Eyes No eye discharge 10/08/2015 Eyes No eye erythema 10/08/2015 Eyes No vision change 10/08/2015 Ears/Nose/Throat/Neck nasal allergies Ears/Nose/Throat/Neck nasal discharge Ears/Nose/Throat/Neck sinus congestion Cardiovascular No chest pain/pressure Respiratory No productive sputum 2015 Respiratory No chest congestion 2015 Respiratory No cough 10/08/2015 Musculoskeletal No joint complaint 2015 Dermatologic No rash 10/08/2015 Neurologic No alteration of consciousness 10/08/2015 Constitutional recent illness 10/08/2015 Ears/Nose/Throat/Neck postnasal drip Ears/Nose/Throat/Neck sore throat 2015 Cardiovascular No dyspnea 10/08/2015 Neurologic No mental status change 2015 Constitutional No recent illness 2015 Constitutional No anorexia 04/25/2015 Constitutional No night sweats 2015 Constitutional No chills 04/25/2015 Constitutional No diaphoresis 04/25/2015 Constitutional No fatigue 04/25/2015 Constitutional No fever 04/25/2015 Constitutional No malaise 04/25/2015 Constitutional No insomnia 04/25/2015 Constitutional No weight loss 04/25/2015 Constitutional No weight gain 04/25/2015 Eyes No eye discharge 04/25/2015 Eyes No eye erythema 04/25/2015 Eyes No vision change 04/25/2015 Ears/Nose/Throat/Neck dizziness 2015 Ears/Nose/Throat/Neck headache 2015 Ears/Nose/Throat/Neck nasal allergies 05/2015 Ears/Nose/Throat/Neck No nasal discharge 04/25/2015 Ears/Nose/Throat/Neck No otalgia 2015 Ears/Nose/Throat/Neck No sinus congestion 04/25/2015 Ears/Nose/Throat/Neck No sore throat 05/2015 Cardiovascular No chest pain/pressure 05/2015 Cardiovascular No edema 04/25/2015 Respiratory No productive sputum 2015 Respiratory No chest congestion 2015 Respiratory No cough 04/25/2015 Gastrointestinal No abdominal pain 2015 Gastrointestinal No constipation 2015 Gastrointestinal No diarrhea 04/25/2015 Gastrointestinal nausea 04/25/2015 Gastrointestinal No vomiting 04/25/2015 Genitourinary/Nephrology No dysuria 04/24 Musculoskeletal No joint complaint 2015 Dermatologic No rash 04/25/2015 Neurologic No alteration of consciousness 04/25/2015 Psychiatric No anxiety 04/25/2015 Endocrine No dry or coarse skin 2015 Endocrine No hair loss 04/25/2015 Hematologic/Lymphatic No abnormal bleeding and bruising 04/25/2015 Constitutional No recent illness 2015 Constitutional No fatigue 02/27/2015 Constitutional No fever 02/27/2015 Musculoskeletal stiffness 02/27/2015 Musculoskeletal swelling 02/27/2015 Musculoskeletal joint complaint 2015 Dermatologic scar 02/27/2015 Dermatologic sores 02/10/2015 Constitutional No recent illness 2014 Constitutional No anorexia 02/10/2015 Constitutional No night sweats 2014 Constitutional No chills 02/10/2015 Constitutional No diaphoresis 02/10/2015 Constitutional No fatigue 02/10/2015 Constitutional No fever 02/10/2015 Constitutional No insomnia 02/10/2015 Constitutional No malaise 02/10/2015 Constitutional No weight loss 02/10/2015 Constitutional No weight gain 02/10/2015 Constitutional No recent illness 2014 Constitutional No anorexia 08/02/2014 Constitutional No night sweats 2014 Constitutional No chills 08/02/2014 Constitutional No diaphoresis 08/02/2014 Constitutional fatigue 08/02/2014 Constitutional No fever 08/02/2014 Constitutional No insomnia 08/02/2014 Constitutional No malaise 08/02/2014 Constitutional No weight loss 08/02/2014 Constitutional No weight gain 08/02/2014 Constitutional obesity 08/02/2014 Eyes No eye discharge 08/02/2014 Eyes No eye erythema 08/02/2014 Ears/Nose/Throat/Neck No dizziness 2014 Ears/Nose/Throat/Neck headache 2014 Cardiovascular No chest pain/pressure 01/2015 Respiratory No cough 08/02/2014 Ears/Nose/Throat/Neck otalgia 08/02/2014 Gastrointestinal No abdominal pain 2014 Gastrointestinal No constipation 2014 Gastrointestinal No diarrhea 08/02/2014 Genitourinary/Nephrology No dysuria 08/02 Dermatologic No rash 08/02/2014 Musculoskeletal joint complaint 2014 Neurologic No alteration of consciousness 08/02/2014 Hematologic/Lymphatic No abnormal bleeding and bruising 08/02/2014 Constitutional No fatigue 05/20/2014 Constitutional No fever 05/20/2014 Constitutional No insomnia 05/20/2014 Eyes No eye discharge 05/20/2014 Eyes No eye erythema 05/20/2014 Ears/Nose/Throat/Neck No headache 2014 Cardiovascular No chest pain/pressure Cardiovascular No edema 05/20/2014 Cardiovascular No near-syncope/dizziness 05/20/2014 Cardiovascular No syncope 05/20/2014 Respiratory No productive sputum 2014 Respiratory No chest congestion 2014 Respiratory No chest tightness 2014 Respiratory No cough 05/20/2014 Respiratory No dyspnea 05/20/2014 Gastrointestinal No abdominal pain 2014 Gastrointestinal No constipation 2014 Gastrointestinal No diarrhea 05/20/2014 Genitourinary/Nephrology No breast complaint 05/20/2014 Genitourinary/Nephrology No dysuria 05/20 Genitourinary/Nephrology No hematuria Genitourinary/Nephrology No urinary urgency 05/20/2014 Genitourinary/Nephrology No vaginal discharge 05/20/2014 Musculoskeletal No joint complaint 2014 Neurologic No alteration of consciousness 05/20/2014 Physical Exam Exam Name System Name Item Name Status Result Effective Dates Notes Full Exam - ENT Constitutional general appearance Overall: well nourished 02/09/2018 None Full Exam - ENT Constitutional general appearance Overall: well developed 02/09/2018 None Full Exam - ENT Constitutional general appearance Overall: in no acute distress 02/09/2018 None Full Exam - ENT Neurologic orientation Overall: oriented to person, place and time 02/09/2018 None Full Exam - ENT Integument inspection of skin Overall: no rash, lesions 02/09/2018 None Full Exam - ENT Lymphatic palpation of lymph nodes Overall: shotty lymphadenopathy 02/09/2018 None Full Exam - ENT Cardiovascular auscultation of heart Overall: regular rate 02/09/2018 None Full Exam - ENT Cardiovascular auscultation of heart Overall: normal heart sounds 02/09/2018 None Full Exam - ENT Respiratory auscultation Overall: breath sounds clear bilaterally 02/09/2018 None Full Exam - ENT Respiratory inspection Overall: normal rate None Full Exam - ENT Respiratory inspection Overall: no retractions 02/09/2018 None Full Exam - ENT Face and Head palpation Overall: no sinus tenderness 02/09/2018 None Full Exam - ENT Ears/Nose/Throat otoscopic exam Overall: external auditory canals normal 02/09/2018 None Full Exam - ENT Ears/Nose/Throat otoscopic exam Left tympanic membrane: air -fluid level 02/09/2018 None Full Exam - ENT Ears/Nose/Throat otoscopic exam Right tympanic membrane: air-fluid level 02/09/2018 None Full Exam - ENT Ears/Nose/Throat oropharynx Overall: oral mucosa clear 02/09/2018 None Full Exam - General 1994 Constitutional general appearance Overall: well developed 04/22/2017 None Full Exam - General 1994 Constitutional general appearance Overall: in no acute distress 04/22/2017 None Full Exam - General 1994 Constitutional general appearance Overall: well nourished 04/22/2017 None Full Exam - General 1994 Eyes conjunctiva /eyelids Overall: conjunctiva clear 04/22/2017 None Full Exam - General 1994 Eyes conjunctiva /eyelids Overall: cornea clear 04/22/2017 None Full Exam - General 1994 Eyes conjunctiva /eyelids Overall: eyelids normal 04/22/2017 None Full Exam - General 1994 Eyes pupils and irises Overall: pupils equal, round, reactive to light and accomodation 04/22/2017 None Full Exam - General 1994 Ears/Nose/Throat otoscopic exam Overall: external auditory canals clear 04/22/2017 None Full Exam - General 1994 Ears/Nose/Throat otoscopic exam Overall: tympanic membranes clear 04/22/2017 None Full Exam - General 1994 Ears/Nose/Throat lips/teeth/gingiva Overall: benign lips 04/22/2017 None Full Exam - General 1994 Ears/Nose/Throat oral cavity/pharynx/larynx Overall: oral mucosa clear 04/22/2017 None Full Exam - General 1994 Ears/Nose/Throat oral cavity/pharynx/larynx Overall: oropharyngeal mucosa clear 04/22/2017 None Full Exam - General 1994 Respiratory respiratory effort/rhythm Overall: normal rate 04/22/2017 None Full Exam - General 1994 Respiratory respiratory effort/rhythm Overall: no retractions 04/22/2017 None Full Exam - General 1994 Respiratory auscultation Overall: breath sounds clear bilaterally 04/22/2017 None Full Exam - General 1994 Cardiovascular auscultation of heart Overall: regular rate 04/22/2017 None Full Exam - General 1994 Cardiovascular auscultation of heart Overall: normal heart sounds 04/22/2017 None Full Exam - General 1994 Abdomen abdominal exam Overall: normal bowel sounds 04/22/2017 None Full Exam - General 1994 Abdomen abdominal exam Epigastric: tender to palpation 04/22/2017 None Full Exam - General 1994 Abdomen abdominal exam Epigastric: dull pain 04/22/2017 None Full Exam - General 1994 Abdomen abdominal exam Epigastric: no guarding 04/22/2017 None Full Exam - General 1994 Abdomen abdominal exam Epigastric: no rebound tenderness 04/22/2017 None Full Exam - General 1994 Abdomen abdominal exam Epigastric: soft 04/22/2017 None Full Exam - General 1994 Abdomen abdominal exam Upper quadrant: tender to palpation 04/22/2017 None Full Exam - General 1994 Abdomen abdominal exam Upper quadrant: dull pain 04/22/2017 None Full Exam - General 1994 Abdomen abdominal exam Upper quadrant: no guarding 04/22/2017 None Full Exam - General 1994 Abdomen abdominal exam Upper quadrant: no rebound tenderness 04/22/2017 None Full Exam - General 1994 Abdomen abdominal exam Upper quadrant: soft 04/22/2017 None Full Exam - General 1994 Musculoskeletal head and neck Overall: head atraumatic 04/22/2017 None Full Exam - General 1994 Musculoskeletal gait and station Overall: normal gait 04/22/2017 None Full Exam - General 1994 Musculoskeletal gait and station Overall: normal station 04/22/2017 None Full Exam - General 1994 Neurologic cranial nerves Overall: crainial nerves 2 - 12 grossly intact 04/22/2017 None Full Exam - General 1994 Psychiatric orientation/consciousness Overall: oriented to person, place and time 04/22/2017 None Full Exam - General 1994 Psychiatric mood and affect Overall: normal mood and affect 04/22/2017 None Full Exam - General 1994 Constitutional general appearance Development: appears stated age 0911/18/2016 None Full Exam - General 1994 Constitutional general appearance Development: well developed 11/18/2016 None Full Exam - General 1994 Constitutional general appearance Hygiene/Attention to Grooming: good hygiene 11/18/2016 None Full Exam - General 1994 Eyes conjunctiva /eyelids Overall: conjunctiva clear 11/18/2016 None Full Exam - General 1994 Eyes conjunctiva /eyelids Overall: cornea clear 11/18/2016 None Full Exam - General 1994 Eyes conjunctiva /eyelids Overall: eyelids normal 11/18/2016 None Full Exam - General 1994 Eyes pupils and irises Overall: pupils equal, round, reactive to light and accomodation 11/18/2016 None Full Exam - General 1994 Ears/Nose/Throat lips/teeth/gingiva Overall: benign lips 11/18/2016 None Full Exam - General 1994 Ears/Nose/Throat lips/teeth/gingiva Overall: normal dentition 11/18/2016 None Full Exam - General 1994 Ears/Nose/Throat oral cavity/pharynx/larynx Overall: hypopharynx benign 11/18/2016 None Full Exam - General 1994 Ears/Nose/Throat oral cavity/pharynx/larynx Overall: no masses 11/18/2016 None Full Exam - General 1994 Ears/Nose/Throat oral cavity/pharynx/larynx Overall: oral mucosa clear 11/18/2016 None Full Exam - General 1994 Ears/Nose/Throat oral cavity/pharynx/larynx Overall: oropharyngeal mucosa clear 11/18/2016 None Full Exam - General 1994 Respiratory auscultation Overall: breath sounds clear bilaterally 11/18/2016 None Full Exam - General 1994 Respiratory respiratory effort/rhythm Overall: no retractions 11/18/2016 None Full Exam - General 1994 Respiratory respiratory effort/rhythm Overall: normal rate 11/18/2016 None Full Exam - General 1994 Cardiovascular extremities Overall: no clubbing 11/18/2016 None Full Exam - General 1994 Cardiovascular auscultation of heart Overall: normal heart sounds 11/18/2016 None Full Exam - General 1994 Cardiovascular auscultation of heart Overall: regular rate 11/18/2016 None Full Exam - General 1994 Abdomen abdominal exam Overall: no tenderness 11/18/2016 None Full Exam - General 1994 Abdomen abdominal exam Overall: normal bowel sounds 11/18/2016 None Full Exam - General 1994 Integument inspection of skin Overall: few scattered moles, no gross abnormalities 11/18/2016 None Full Exam - General 1994 Neurologic deep tendon reflexes Overall: deep tendon reflexes intact 11/18/2016 None Full Exam - General 1994 Neurologic cranial nerves Overall: crainial nerves 2 - 12 grossly intact 11/18/2016 None Full Exam - General 1994 Psychiatric orientation/consciousness Overall: oriented to person, place and time 11/18/2016 None Full Exam - General 1994 Psychiatric mood and affect Overall: normal mood and affect 11/18/2016 None Full Exam - General 1994 Ears/Nose/Throat otoscopic exam Overall: external auditory canals clear 11/18/2016 None Full Exam - General 1994 Ears/Nose/Throat otoscopic exam Tympanic membrane: air- fluid level 11/18/2016 None Full Exam - Dermatology Constitutional general appearance Overall: well nourished 10/18/2016 None Full Exam - Dermatology Constitutional general appearance Overall: well developed 10/18/2016 None Full Exam - Dermatology Constitutional general appearance Overall: in no acute distress 10/18/2016 None Full Exam - Dermatology Eyes conjunctiva/ eyelids Overall: clear conjunctiva bilaterally 10/18/2016 None Full Exam - Dermatology Eyes conjunctiva/ eyelids Overall: normal eyelids 10/18/2016 None Full Exam - Dermatology Ears/Nose/Throat lips/teeth/gingiva Overall: benign lips 10/18/2016 None Full Exam - Dermatology Ears/Nose/Throat oropharynx Overall: clear oral mucosa 10/18/2016 None Full Exam - Dermatology Respiratory auscultation Overall: breath sounds clear bilaterally 10/18/2016 None Full Exam - Dermatology Respiratory respiratory effort/rhythm Overall: no retractions 10/18/2016 None Full Exam - Dermatology Respiratory respiratory effort/rhythm Overall: normal rate 10/18/2016 None Full Exam - Dermatology Integument insp & palp - chest/axillae Location: on the left lower chest 10/18/2016 None Full Exam - Dermatology Integument insp & palp - chest/axillae Lesion: patch 10/18/2016 None Full Exam - Dermatology Integument insp & palp - chest/axillae Color: erythematous 10/18/2016 None Full Exam - Dermatology Neurologic gait Overall: no ataxia, no unsteadiness 10/18/2016 None Full Exam - Dermatology Psychiatric orientation Overall: oriented to person, place and time 10/18/2016 None Full Exam - Dermatology Psychiatric mood and affect Overall: normal mood and affect 10/18/2016 None Full Exam - Dermatology Integument insp & palp - chest/axillae Length: 2cm 10/18/2016 None Full Exam - Dermatology Integument insp & palp - chest/axillae Width: 1cm 10/18/2016 None Full Exam - Genitourinary/Female Constitutional general appearance Overall: well nourished 05/20/2016 None Full Exam - Genitourinary/Female Constitutional general appearance Overall: well developed 05/20/2016 None Full Exam - Genitourinary/Female Constitutional general appearance Overall: in no acute distress 05/20/2016 None Full Exam - Genitourinary/Female Eyes conjunctiva/eyelids Overall: conjunctiva clear 05/20/2016 None Full Exam - Genitourinary/Female Eyes pupils and irises Overall: pupils equal, round, reactive to light and accomodation 05/20/2016 None Full Exam - Genitourinary/Female Ears/Nose/Throat otoscopic exam Overall: external auditory canals clear 05/20/2016 None Full Exam - Genitourinary/Female Ears/Nose/Throat otoscopic exam Overall: tympanic membranes clear 05/20/2016 None Full Exam - Genitourinary/Female Ears/Nose/Throat oral cavity/pharynx/larynx Overall: oral mucosa clear 05/20/2016 None Full Exam - Genitourinary/Female Respiratory auscultation Overall: breath sounds clear bilaterally 05/20/2016 None Full Exam - Genitourinary/Female Respiratory respiratory effort/rhythm Overall: no retractions 05/20/2016 None Full Exam - Genitourinary/Female Respiratory respiratory effort/rhythm Overall: normal rate 05/20/2016 None Full Exam - Genitourinary/Female Cardiovascular auscultation of heart Overall: regular rate 05/20/2016 None Full Exam - Genitourinary/Female Cardiovascular auscultation of heart Overall: normal heart sounds 05/20/2016 None Full Exam - Genitourinary/Female Cardiovascular examination of vasculature Overall: no clubbing, cyanosis, edema 05/20/2016 None Full Exam - Genitourinary/Female Abdomen abdominal exam Overall: non tender, non distended 05/20/2016 None Full Exam - Genitourinary/Female Abdomen abdominal exam Overall: normal bowel sounds 05/20/2016 None Full Exam - Genitourinary/Female Abdomen abdominal exam Overall: no mass lesions 05/20/2016 None Full Exam - Genitourinary/Female Lymphatic inspection and palpation of nodes Overall: anterior cervical chain benign 05/20/2016 None Full Exam - Genitourinary/Female Lymphatic inspection and palpation of nodes Overall: posterior cervical chain benign 05/20/2016 None Full Exam - Genitourinary/Female Musculoskeletal head and neck Overall: head atraumatic 05/20/2016 None Full Exam - Genitourinary/Female Musculoskeletal gait and station Overall: normal gait 05/20/2016 None Full Exam - Genitourinary/Female Musculoskeletal gait and station Overall: normal station 05/20/2016 None Full Exam - Genitourinary/Female Integument inspection and palpation of skin Overall: no rash, lesions 05/20/2016 None Full Exam - Genitourinary/Female Neurologic mood and affect Overall: normal mood 05/20/2016 None Full Exam - Genitourinary/Female Neurologic mood and affect Overall: normal affect 05/20/2016 None Full Exam - Genitourinary/Female Psychiatric orientation/consciousness Overall: oriented to person, place and time 05/20/2016 None Full Exam - General 1994 Constitutional general appearance Overall: well developed 10/08/2015 None Full Exam - General 1994 Constitutional general appearance Overall: in no acute distress 10/08/2015 None Full Exam - General 1994 Constitutional general appearance Overall: well nourished 10/08/2015 None Full Exam - General 1994 Eyes conjunctiva /eyelids Overall: conjunctiva clear 10/08/2015 None Full Exam - General 1994 Eyes conjunctiva /eyelids Overall: cornea clear 10/08/2015 None Full Exam - General 1994 Eyes conjunctiva /eyelids Overall: eyelids normal 10/08/2015 None Full Exam - General 1994 Eyes pupils and irises Overall: pupils equal, round, reactive to light and accomodation 10/08/2015 None Full Exam - General 1994 Ears/Nose/Throat otoscopic exam Overall: external auditory canals clear 10/08/2015 None Full Exam - General 1994 Ears/Nose/Throat oral cavity/pharynx/larynx Overall: oral mucosa clear 10/08/2015 None Full Exam - General 1994 Respiratory auscultation Overall: breath sounds clear bilaterally 10/08/2015 None Full Exam - General 1994 Respiratory respiratory effort/rhythm Overall: no retractions 10/08/2015 None Full Exam - General 1994 Respiratory respiratory effort/rhythm Overall: normal rate 10/08/2015 None Full Exam - General 1994 Cardiovascular auscultation of heart Overall: regular rate 10/08/2015 None Full Exam - General 1994 Cardiovascular auscultation of heart Overall: normal heart sounds 10/08/2015 None Full Exam - General 1994 Abdomen abdominal exam Overall: no tenderness 10/08/2015 None Full Exam - General 1994 Abdomen abdominal exam Overall: normal bowel sounds 10/08/2015 None Full Exam - General 1994 Neurologic cranial nerves Overall: crainial nerves 2 - 12 grossly intact 10/08/2015 None Full Exam - General 1994 Psychiatric orientation/consciousness Overall: oriented to person, place and time 10/08/2015 None Full Exam - General 1994 Ears/Nose/Throat otoscopic exam Tympanic membrane: air- fluid level 10/08/2015 None Full Exam - General 1994 Ears/Nose/Throat oral cavity/pharynx/larynx Posterior Pharynx: clear post nasal drainage 10/08/2015 None Full Exam - General 1994 Ears/Nose/Throat oral cavity/pharynx/larynx Tonsil: enlarged 10/08/2015 None Full Exam - General 1994 Ears/Nose/Throat oral cavity/pharynx/larynx Tonsil: erythematous 10/08/2015 None Full Exam - General 1994 Ears/Nose/Throat lips/teeth/gingiva Overall: benign lips 10/08/2015 None Full Exam - General 1994 Ears/Nose/Throat lips/teeth/gingiva Overall: normal dentition 10/08/2015 None Full Exam - General 1994 Lymphatic neck nodes Overall: shotty lymphadenopathy 10/08/2015 None Full Exam - General 1994 Psychiatric mood and affect Overall: normal mood and affect 10/08/2015 None Full Exam - General 1994 Psychiatric appearance Overall: well-groomed, good eye contact 10/08/2015 None Full Exam - General 1994 Psychiatric speech Overall: normal quality, no aphasia 10/08/2015 None Full Exam - General 1994 Ears/Nose/Throat oral cavity/pharynx/larynx Tonsil: exudate 10/08/2015 None Full Exam - General 1994 Constitutional general appearance Overall: well developed 04/25/2015 None Full Exam - General 1994 Constitutional general appearance Overall: in no acute distress 04/25/2015 None Full Exam - General 1994 Constitutional general appearance Overall: well nourished 04/25/2015 None Full Exam - General 1994 Eyes conjunctiva /eyelids Overall: conjunctiva clear 04/25/2015 None Full Exam - General 1994 Eyes conjunctiva /eyelids Overall: cornea clear 04/25/2015 None Full Exam - General 1994 Eyes conjunctiva /eyelids Overall: eyelids normal 04/25/2015 None Full Exam - General 1994 Eyes pupils and irises Overall: pupils equal, round, reactive to light and accomodation 04/25/2015 None Full Exam - General 1994 Ears/Nose/Throat otoscopic exam Overall: external auditory canals clear 04/25/2015 None Full Exam - General 1994 Ears/Nose/Throat oral cavity/pharynx/larynx Overall: oral mucosa clear 04/25/2015 None Full Exam - General 1994 Ears/Nose/Throat oral cavity/pharynx/larynx Overall: oropharyngeal mucosa clear 04/25/2015 None Full Exam - General 1994 Ears/Nose/Throat oral cavity/pharynx/larynx Overall: no masses 04/25/2015 None Full Exam - General 1994 Respiratory auscultation Overall: breath sounds clear bilaterally 04/25/2015 None Full Exam - General 1994 Respiratory respiratory effort/rhythm Overall: no retractions 04/25/2015 None Full Exam - General 1994 Respiratory respiratory effort/rhythm Overall: normal rate 04/25/2015 None Full Exam - General 1994 Cardiovascular auscultation of heart Overall: regular rate 04/25/2015 None Full Exam - General 1994 Cardiovascular auscultation of heart Overall: normal heart sounds 04/25/2015 None Full Exam - General 1994 Cardiovascular auscultation of heart Overall: no murmurs 04/25/2015 None Full Exam - General 1994 Lymphatic neck nodes Overall: anterior cervical chain benign 04/25/2015 None Full Exam - General 1994 Lymphatic neck nodes Overall: posterior cervical chain benign 04/25/2015 None Full Exam - General 1994 Musculoskeletal spine, ribs and pelvis Overall: spine benign 04/25/2015 None Full Exam - General 1994 Neurologic cranial nerves Overall: crainial nerves 2 - 12 grossly intact 04/25/2015 None Full Exam - General 1994 Psychiatric orientation/consciousness Overall: oriented to person, place and time 04/25/2015 None Full Exam - General 1994 Abdomen abdominal exam Overall: normal bowel sounds 04/25/2015 None Full Exam - General 1994 Abdomen abdominal exam Overall: no tenderness 04/25/2015 None Full Exam - General 1994 Constitutional general appearance Overall: well nourished 02/27/2015 None Full Exam - General 1994 Constitutional general appearance Overall: well developed 02/27/2015 None Full Exam - General 1994 Constitutional general appearance Overall: in no acute distress 02/27/2015 None Full Exam - General 1994 Psychiatric orientation/consciousness Overall: oriented to person, place and time 02/27/2015 None Full Exam - General 1994 Musculoskeletal lower extremity Inspection - ankle: presence of a scar 02/27/2015 None Full Exam - General 1994 Musculoskeletal lower extremity Inspection - ankle: swelling @ achilles tendon 02/27/2015 None Full Exam - Dermatology Constitutional general appearance Overall: well nourished 02/10/2015 None Full Exam - Dermatology Constitutional general appearance Overall: well developed 02/10/2015 None Full Exam - Dermatology Constitutional general appearance Overall: in no acute distress 02/10/2015 None Full Exam - Dermatology Constitutional general appearance Overall: of normal body habitus 02/10/2015 None Full Exam - Dermatology Constitutional general appearance Overall: well groomed 02/10/2015 None Full Exam - Dermatology Psychiatric orientation Overall: oriented to person, place and time 02/10/2015 None Full Exam - Dermatology Integument insp & palp - abdomen Location: on the lower abdomen 02/10/2015 1cm area of redness noted lower abdomen in abdominal fold-no induration noted Full Exam - General 1994 Constitutional general appearance Overall: well developed 08/02/2014 None Full Exam - General 1994 Constitutional general appearance Overall: in no acute distress 08/02/2014 None Full Exam - General 1994 Constitutional general appearance Overall: well nourished 08/02/2014 None Full Exam - General 1994 Psychiatric orientation/consciousness Overall: oriented to person, place and time 08/02/2014 None Full Exam - General 1994 Neurologic cranial nerves Overall: crainial nerves 2 - 12 grossly intact 08/02/2014 None Full Exam - General 1994 Musculoskeletal spine, ribs and pelvis Overall: spine benign 08/02/2014 None Full Exam - General 1994 Lymphatic neck nodes Overall: anterior cervical chain benign 08/02/2014 None Full Exam - General 1994 Lymphatic neck nodes Overall: posterior cervical chain benign 08/02/2014 None Full Exam - General 1994 Cardiovascular auscultation of heart Overall: regular rate 08/02/2014 None Full Exam - General 1994 Cardiovascular auscultation of heart Overall: normal heart sounds 08/02/2014 None Full Exam - General 1994 Cardiovascular auscultation of heart Overall: no murmurs 08/02/2014 None Full Exam - General 1994 Respiratory respiratory effort/rhythm Overall: normal rate 08/02/2014 None Full Exam - General 1994 Respiratory respiratory effort/rhythm Overall: no retractions 08/02/2014 None Full Exam - General 1994 Respiratory auscultation Overall: breath sounds clear bilaterally 08/02/2014 None Full Exam - General 1994 Ears/Nose/Throat otoscopic exam Overall: external auditory canals clear 08/02/2014 None Full Exam - General 1994 Ears/Nose/Throat oral cavity/pharynx/larynx Overall: oropharyngeal mucosa clear 08/02/2014 None Full Exam - General 1994 Ears/Nose/Throat oral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 medications at this time because of her desire to get - pt may be started on antidepressant/SSRI's after if she so desires. I have given her the contact information of another person who is known to me (not a patient) who also has Tourette's syndrome. 05/20/2014 Appointment: Angel[facility] [phone] [facility] [facility] 05/20/2014 Patient Education: Patient Medication Summary Completed 05/20/2014 Instructions Comment . Elevated Blood Pressure - without diagnosis of hypertension - pt has been instructed to check blood pressure as an outpatient, record blood pressure and heart rate and report to the clinic in two weeks on the findings. Pt advised to cut back on added salt in the diet. Missed period-check test Fatigue-check TSH, CBC Neck pain-right arm numbness-recommend MRI cervical spine if symptoms persist or worsen. Rest, anti inflammatories as directed. Discussed the possibility of PT as well. Patient verbalized understanding of plan. . Elevated Blood Pressure - without diagnosis of hypertension - pt has been instructed to check blood pressure as an outpatient, record blood pressure and heart rate and report to the clinic in two weeks on the findings. Pt advised to cut back on added salt in the diet. Missed period-check test Fatigue-check TSH, CBC Neck pain-right arm numbness-recommend MRI cervical spine if symptoms persist or worsen. Rest, anti inflammatories as directed. Discussed the possibility of PT as well. Patient verbalized understanding of plan. . Elevated Blood Pressure - without diagnosis of hypertension - pt has been instructed to check blood pressure as an outpatient, record blood pressure and heart rate and report to the clinic in two weeks on the findings. Pt advised to cut back on added salt in the diet. Late period-check Hcg . URI-sore throat -cough-flu negative -pt advised to increase fluids, vitamin C. Discussed natural and expected course of this diagnosis and need to alert me if symptoms do not follow expected course, or if any worse. RX sent to patient's pharmacy. . Lyme disease, Arjun Mnt Spotted Fever - continue with doxycycline, start on dapsone, monitor symptoms, pt to call if symptoms do improve. If pt has increase in symptoms or fevers do not veronica, need to consider possibility of premature menopausal symptoms and check hormone levels. . Ganglion cyst - pain ankle - recommended ibuprofen 800mg tid x 2 weeks - take with food and use anti-inflammatory topically. hold running x 1 week, and wear socks above surgical site. Saxenda . Well Adult - pt was counseled about diet, exercise, and encouraged to follow a heart healthy diet and increase activity level. The patient was instructed to RTC yearly for well adult exams and PRN for acute illnesses. The pt was also instructed to have yearly labs for check of cholesterol, thyroid, chem panel, CBC, and renal functioning. . Well Adult - pt was counseled about diet, exercise, and encouraged to follow a heart healthy diet and increase activity level. The patient was instructed to RTC yearly for well adult exams and PRN for acute illnesses. The pt was also instructed to have yearly labs for check of cholesterol, thyroid, chem panel, CBC, and renal functioning. Hx of Tourette's Syndrome - discussed with patient - she cannot be started on any medications at this time because of her desire to get - pt may be started on antidepressant/SSRI's after if she so desires. I have given her the contact information of another person who is known to me (not a patient) who also has Tourette's syndrome. . Well Adult - pt was counseled about diet, exercise, and encouraged to follow a heart healthy diet and increase activity level. The patient was instructed to RTC yearly for well adult exams and PRN for acute illnesses. The pt was also instructed to have yearly labs for check of cholesterol, thyroid, chem panel, CBC, and renal functioning. RUQ pain - will order GB US and refer if indicated Esophageal Reflux - the patient has been counseled against excessive intake of caffeine, spicy foods, peppermint, and cinnamon - all of which can exacerbate esophageal reflux. The patient is to take medications as prescribed and call the office if the symptoms are not improving. . RUQ pain - will order GB US and refer if indicated Esophageal Reflux - the patient has been counseled against excessive intake of caffeine, spicy foods, peppermint, and cinnamon - all of which can exacerbate esophageal reflux. The patient is to take medications as prescribed and call the office if the symptoms are not improving. . Cellulitis - The patient was instructed in appropriate wound care. The patient was instructed to use the antibiotic as per RX. The patient is to call for any change in symptoms, increase in size of the lesion, increase in pain. . Tick Bite - pt given script for treatment of infected tick bite, call for symptoms of worsening infection or nonhealing. The patient is to call for any change in symptoms, increase in size of the lesion, increase in pain, worsening redness, warmth, discharge. Esophageal Reflux - the patient has been counseled against excessive intake of caffeine, spicy foods, peppermint, and cinnamon - all of which can exacerbate esophageal reflux. The patient is to take medications as prescribed and call the office if the symptoms are not improving. . Sinusitis - Pt has acute infection - pain in face, maxillary region, Pt informed to use decongestant, RX given to patient, sinus rinses also recommended. Call if symptoms do not show improvement. URI - Pt advised to increase fluids, vitamin C. Discussed natural and expected course of this diagnosis and need to alert me if symptoms do not follow expected course, or if any worse. RX sent to patient's pharmacy.
--- OUTSIDE RECORDS SUMMARY | 2018-02-16 07:14 | XMS REPORT | CCD ---
Author Author Angelika Winn MD, [facility] Address [address] [place] [address] Phone Care Team Providers Care Paper Inserter Name Role Phone PP Unavailable CCM Unavailable Summary Purpose Interface Exchange Insurance Providers Payer name Policy type / Coverage type Covered republican ID Effective Begin Date Effective End Date [facility] [id number] 2015 Unknown Family history Sister Diagnosis Age At Onset No Known Diseases N/A Mother Diagnosis Age At Onset Arthritis Unknown Hyperlipidemia Unknown Depression Unknown Father Diagnosis Age At Onset defect Unknown Diabetes mellitus Type 2 Unknown Hyperlipidemia Unknown Hypertension Unknown Social History Social History Element Codes Description Effective Dates Marital status Unknown Jennifer 04/25/[address]: 4392988 Former smoker 02/10/[address]: 316669273 Never drinks alcohol 02/10/2015 Allergies, Adverse Reactions, Alerts Substance Reaction Codes Entered Date Inactivated Date Status Penicillin Unknown 05/20/2014 No Inactive Date Active Past Medical History Illness Codes Condition Status Onset Date Resolved Date Encounter for general adult medical examination with [...] ICD-9: 278.00 ICD-10: E66.09 Active 05/20/2016 Unknown Acute laryngopharyngitis ICD-9: 465.0 ICD-10: J06.0 Active 10/07/2015 Unknown Other acute sinusitis ICD-9: 461.8 ICD-10: [...] Problems Condition Codes Effective Dates Condition Status Encounter for general adult medical examination with [...] calories ICD-9: 278.00 ICD-10: E66.09 05/20/2016 Active Acute laryngopharyngitis ICD-9: 465.0 ICD-10: J06.0 10/07/2015 Active Other acute sinusitis ICD-9: 461.8 ICD-10: [...] Start Date Stop Date Status Fill Instructions promethazine 25 mg tablet RxNorm: 538678 1 Tablet(s) PO TID as needed nausea 02/08/2018 02/12/2018 Active promethazine 25 mg tablet RxNorm: 579979 1 Tablet(s) PO TID as needed nausea 02/08/2018 02/07/2018 Inactive omeprazole 20 mg capsule,delayed release RxNorm: 743973 1 Capsule(s) PO BID 10/14/2017 01/11/2018 Inactive meclizine 25 mg tablet RxNorm: 674726 1 Tablet(s) PO TID as needed Dizziness 05/02/2017 05/01/2017 Inactive meclizine 25 mg tablet RxNorm: 448134 1 Tablet(s) PO TID as needed Dizziness 05/02/2017 05/31/2017 Inactive Prilosec OTC 20 mg tablet,delayed release RxNorm: 915433 1 Tablet(s) PO BID 05/02/2017 05/01/2017 Inactive Prilosec OTC 20 mg tablet,delayed release RxNorm: 961416 1 Tablet(s) PO BID 05/02/2017 05/31/2017 Inactive dapsone 100 mg tablet RxNorm: 600540 1 Tablet(s) PO daily 201611/27/2016 Inactive doxycycline hyclate 100 mg capsule RxNorm: 2224756 1 Capsule(s) PO BID 10/20/2016 11/18/2016 Inactive stop vitamin while on doxy omeprazole 20 mg capsule,delayed release RxNorm: 310508 1 Capsule(s) PO daily 10/18/2016 10/31/2016 Inactive doxycycline hyclate 100 mg capsule RxNorm: 2531242 1 Capsule(s) PO BID 10/18/2016 10/19/2016 Inactive stop vitamin while on doxy Saxenda 3 mg/0.5 mL (18 mg/3 mL) subcutaneous pen injector RxNorm: 5127054 3 Milliliter(s) SQ daily 05/21/20162016 Inactive Saxenda 3 mg/0.5 mL (18 mg/3 mL) subcutaneous pen injector RxNorm: 9325687 Milliliter(s) SQ 05/20/2016 05/20/2016 Inactive Kenalog 40 mg/mL suspension for injection RxNorm: 2947581 Milliliter(s) Inj 10/08/2015 10/08/2015 Inactive Zithromax Z-Juni 250 mg tablet RxNorm: 611502 1 Tablet(s) PO UD 10/08/2015 05/19/2016 Inactive labetalol 100 mg tablet RxNorm: 818459 1 Tablet(s) PO BID 04/2804/28/2015 Inactive labetalol 100 mg tablet RxNorm: 901781 1 Tablet(s) PO BID 04/2810/07/2015 Inactive Cipro 500 mg tablet RxNorm: 647571 1 Tablet(s) PO BID 201505/19/2016 Inactive Cipro 500 mg tablet RxNorm: 790900 1 Tablet(s) PO BID 201504/25/2015 Inactive Bactrim DS 800 mg-160 mg tablet RxNorm: 876398 1 Tablet(s) PO BID 02/10/2015 02/16/2015 Inactive + DHA oral RxNorm: oral No Start Date Active Vitamin C 500 mg tablet RxNorm: 426117 1 Tablet(s) PO daily No Start Date Active multivitamin chewable tablet RxNorm: 1 Tablet(s) PO daily No Start Date 11/17/2016 Inactive Medication Administered Medication Codes Instructions Start Date Status Kenalog 40 mg/mL suspension for injection RxNorm: 4334920 Milliliter 10/08/2015 No longer Active Immunizations No Immunization data Assessments Condition Codes Effective Dates Right upper quadrant pain ICD-10: R10.11 ICD-9: [...] abnormal findings ICD-10: Z00.00 ICD-9: V70.0 05/20/2016 Acute laryngopharyngitis ICD-10: J06.0 ICD-9: 465.0 10/08/2015 Other acute sinusitis ICD-10: J01.80 ICD-9: 461.8 [...] Visit Reason For Visit Effective Dates Notes abdominal pain 04/22/2017 abnormal test results 11/18/2016 arthropod bite 10/18/2016 well woman exam (18-39 years) 05/20/2016 sinus congestion 10/08/2015 blood pressure followup 04/25/2015 ankle pain 02/27/2015 skin lesion 02/10/2015 hypertension 08/02/2014 neck pain 05/20/2014 Results Observation Observation Code Item Item Code Result Date Arjun Mtn Spot'D Fev Igg 447472 RMSF, IGG -TITER IFA 1:128 02/2016 Ehrlichia Chaffeensis Antibody Igg 809551 EHRLICHIA CHAFFEENSIS IGG <1:64 10/22/2016 [place] Spotted Fever Igg/Igm 821609 ARJUN MT SPOTTED FEVER IGM EIA . 10/22/2016 [place] Spotted Fever Igg/Igm 683159 RMSF, IGM 0.32 index 10/22/2016 [place] Spotted Fever Igg/Igm 469373 ARJUN MT SPOTTED FEVER IGG EIA FLEX . 10/22/2016 [place] Spotted Fever Igg/Igm 473985 RMSF, IGG SCREEN-FLEX Positive 10/22/2016 Ehrlichia Chaffeensis Antibody Igm 403378 EHRLICHIA CHAFFEENSIS IGM < 1:16 10/22/2016 Lymes Western Blot Serum 073847 B. BURGDORFERI, IGG WB Negative 10/21/2016 Lymes Western Blot Serum 870457 B. BURGDORFERI, IGM WB Negative 10/21/2016 Lymes Disease Total Antibodies With Western Blot Reflex [id number] B. BURGDORFERI, IGG/IGM 1.27 LI 10/20/2016 Lymes Disease Total Antibodies With Western Blot Reflex [id number] 10/20/2016 Cbc With Differential Ord2 WBC 7.30 K/ul 10/18/2016 Cbc With Differential Ord2 RBC 4.61 M/ul 10/18/2016 Cbc With Differential Ord2 HGB 13.3 g/dl 10/18/2016 Cbc With Differential Ord2 Neut% 59.9 % 10/18/2016 Cbc With Differential Ord2 HCT 40.1 % 10/18/2016 Cbc With Differential Ord2 Lymph% 29.2 % 10/18/2016 Cbc With Differential Ord2 MCV 87.0 fl 10/18/2016 Cbc With Differential Ord2 [place]% 7.1 % 10/18/2016 Cbc With Differential Ord2 MCH 28.9 pg 10/18/2016 Cbc With Differential Ord2 Eos% 3.3 % 10/18/2016 Cbc With Differential Ord2 MCHC 33.2 pg 10/18/2016 Cbc With Differential Ord2 PLT 282 K/ul 10/18/2016 Cbc With Differential Ord2 Baso% 0.5 % 10/18/2016 Cbc With Differential Ord2 Neut ABS# 4.37 K/ul 10/18/2016 Cbc With Differential Ord2 RDW 14.1 % 10/18/2016 Cbc With Differential Ord2 Lymph ABS# 2.13 K/ul 10/18/2016 Cbc With Differential Ord2 [place] ABS# 0.5 K/ul 10/18/2016 Cbc With Differential Ord2 Eos ABS# 0.2 K/ul 10/18/2016 Cbc With Differential Ord2 Baso ABS# 0.0 K/ul 10/18/2016 Tsh Ord6 hTSH II 2.02 uIU/mL 10/18/2016 Comp Metabolic Hws069 NA 139 mEq/L 10/18/2016 Comp Metabolic Wnt626 K 4.2 mEq/L 10/18/2016 Comp Metabolic Ivd370 CL 103 mEq/L 10/18/2016 Comp Metabolic Twk306 CO2 26.0 mEq/L 10/18/2016 Comp Metabolic Iya574 ANION GAP 14 10/18/2016 Comp Metabolic Ieh104 GLUCOSE 84 mg/dL 10/18/2016 Comp Metabolic Tnj527 Creat 0.5 mg/dL 10/18/2016 Comp Metabolic Vuz770 eGFR 158 ml/min/1.73m2 10/18/2016 Comp Metabolic Aem795 BUN 10 mg/dL 10/18/2016 Comp Metabolic Egw849 B/C Ratio 20.4 Ratio 10/18/2016 Comp Metabolic Xma300 CALCIUM 9.3 mg/dL 10/18/2016 Comp Metabolic Npn027 ALK PHOS 67 U/L 10/18/2016 Comp Metabolic Pcc577 AST(SGOT) 11 U/L 10/18/2016 Comp Metabolic Hri853 ALT(SGPT) 10 U/L 10/18/2016 Comp Metabolic Nxn206 BILI T 0.4 mg/dL 10/18/2016 Comp Metabolic Xze542 ALBUMIN 4.1 g/dL 10/18/2016 Comp Metabolic Tcg842 TPRO 6.7 g/dL 10/18/2016 Comp Metabolic Mon808 GLOB 2.6 g/dL 10/18/2016 Comp Metabolic Rzw609 A/G Ratio 1.6 Ratio 10/18/2016 Comp Metabolic Zkm798 Osmo 276 mOsmo 10/18/2016 Lipid Ord30 CHOL [...] 27.7 pg 04/25/2015 Cbc With Differential Ord2 [place]% 6.1 % 04/25/2015 Cbc With Differential Ord2 [...] 1.95 K/ul 04/25/2015 Cbc With Differential Ord2 [place] ABS# 0.6 K/ul 04/25/2015 Cbc With Differential Ord2 Eos ABS# 0.2 K/ul 04/25/2015 Cbc With Differential Ord2 Baso ABS# 0.0 K/ul 04/25/2015 Cbc With Differential Ord2 New Analyzer Notice Please note new ref ranges starting 03-05-2015 due to implemntation of new five part differential hematolgy analyzer. 04/25/2015 Comp Metabolic Hct516 NA 135 mEq/L 04/25/2015 Comp Metabolic Fkm816 K 4.0 mEq/L 04/25/2015 Comp Metabolic Khc256 CL 104 mEq/L 04/25/2015 Comp Metabolic Pfg157 CO2 25.0 mEq/L 04/25/2015 Comp Metabolic Koq330 ANION GAP 10 04/25/2015 Comp Metabolic Rdt792 GLUCOSE 88 mg/dL 04/25/2015 Comp Metabolic Ltq249 Creat 0.5 mg/dL 04/25/2015 Comp Metabolic Wqk270 eGFR 167 ml/min/1.73m2 04/25/2015 Comp Metabolic Dzq029 BUN 9 mg/dL 04/25/2015 Comp Metabolic Gjd323 B/C Ratio 19.1 Ratio 04/25/2015 Comp Metabolic Vof984 CALCIUM 9.1 mg/dL 04/25/2015 Comp Metabolic Eck270 ALK PHOS 61 U/L 04/25/2015 Comp Metabolic Edu821 AST(SGOT) 13 U/L 04/25/2015 Comp Metabolic Nqr174 ALT(SGPT) 12 U/L 04/25/2015 Comp Metabolic Tty992 BILI T 0.5 mg/dL 04/25/2015 Comp Metabolic Bhx351 ALBUMIN 4.3 g/dL 04/25/2015 Comp Metabolic Njv818 TPRO 7.0 g/dL 04/25/2015 Comp Metabolic Vpt220 GLOB 2.7 g/dL 04/25/2015 Comp Metabolic Mmo496 A/G Ratio 1.6 Ratio 04/25/2015 Comp Metabolic Yub275 Osmo 268 mOsmo 04/25/2015 HCG QUANT 6704596 HCG QUANT FOOTNOTE MIU/ML 08/05/2014 TSH 0082496 TSH 2.27 uIU/ML 08/05/2014 CBC 4584368 WBC 8.6 10e9/L 08/02/2014 CBC 2052202 RBC 4.49 10e12/L 08/02/2014 CBC 1953793 HGB 12.7 g/dL 08/02/2014 CBC 7532014 HCT DET 38.1 % 08/02/2014 CBC 8856147 MCV 84.9 fL 08/02/2014 CBC 1084233 MCH 28.3 pg 08/02/2014 CBC 6453941 MCHC 33.3 g/dL 08/02/2014 CBC 6138194 PLT 276 10e9/L 08/02/2014 CBC 2014636 MPV 10.4 fL 08/02/2014 CBC 6971609 FINN % 67.0 % 08/02/2014 CBC 0073990 LY % 24.3 % 08/02/2014 CBC 5474763 MON % 6.5 % 08/02/2014 CBC 0923180 EOS % 2.0 % 08/02/2014 CBC 3934206 BASO % 0.2 % 08/02/2014 CBC 5253289 RDW 14.2 % 08/02/2014 CBC 4832410 ABS FINN 5.76 10e9/L 08/02/2014 CBC 4730714 ABS LYMPH 2.09 10e9/L 08/02/2014 CBC 7170294 ABS MONO 0.56 10e9/L 08/02/2014 CBC 4963492 ABS EOS 0.17 10e9/L 08/02/2014 CBC 4855733 ABS BASO 0.02 10e9/L 08/02/2014 CBC 8377811 RDW-SD 43.2 fL 08/02/2014 Review of Systems System Result Effective Dates Constitutional No recent illness 2017 Constitutional No [...] Result Effective Dates Notes Full Exam - General 1994 Constitutional general [...] NOS CPT-4: J3301 10/08/2015 ROUTINE VENIPUNCTURE CPT-4: 45956 08/02/2014 CBC (COMPLETE CBC W/AUTO DIFF WBC) CPT-4: 37837 08/02/2014 TSH (ASSAY THYROID STIM HORMONE) CPT-4: 52515 08/02/2014 Vital Signs Date Vital 04/22/2017 Blood Pressure 1: 126/74 Code : 8480-6 BMI: 38.4 Code : 93822-4 Heart Rate 1 : 65 bpm Height: 5'9" SpO2: 98% Weight: 260 lbs 11/18/2016 Blood Pressure 1: 132/90 Code : 8480-6 BMI: 38.2 Code : 58761-4 Heart Rate 1 : 71 bpm Height: 5'9" SpO2: 98% Temperature: 36.9 (C) / 98.5 (F) Weight: 259 lbs 10/18/2016 Blood Pressure 1: 122/80 Code : 8480-6 BMI: 38.1 Code : 29573-1 Heart Rate 1 : 64 bpm Height: 5'9" SpO2: 98% Temperature: 37.1 (C) / 98.7 (F) Weight: 258 lbs 05/20/2016 Blood Pressure 1: 120/68 Code : 8480-6 BMI: 40.3 Code : 51573-8 Heart Rate 1 : 66 bpm Height: 5'9" SpO2: 98% Weight: 273 lbs 10/08/2015 Blood Pressure 1: 122/68 Code : 8480-6 BMI: 41.3 Code : 68477-9 Heart Rate 1 : 74 bpm Height: 5'9" SpO2: 98% Temperature: 36.9 (C) / 98.4 (F) Weight: 280 lbs 04/25/2015 Blood Pressure 1: 124/78 Code : 8480-6 BMI: 40.5 Code : 31287-6 Heart Rate 1 : 76 bpm Height: 5'9" SpO2: 98% Weight: 274 lbs 02/27/2015 Blood Pressure 1: 128/82 Code : 8480-6 BMI: 40.8 Code : 05632-1 Heart Rate 1 : 82 bpm Height: 5'9" SpO2: 99% Weight: 276 lbs 02/10/2015 Blood Pressure 1: 128/88 Code : 8480-6 BMI: 41.2 Code : 67796-2 Heart Rate 1 : 94 bpm Height: 5'9" SpO2: 95% Weight: 279 lbs 08/02/2014 Blood Pressure 1: 118/80 Code : 8480-6 BMI: 39.9 Code : 10799-9 Heart Rate 1 : 72 bpm Height: 5'9" SpO2: 99% Weight: 270 lbs 05/20/2014 Blood Pressure 1: 122/88 Code : 8480-6 BMI: 39.6 Code : 84877-2 Heart Rate 1 : 72 bpm Height: 5'9" Weight: 268 lbs Functional Status No Functional Status data History of Present Illness Symptom Name Status Result Effective Date Notes abdominal pain Location in the epigastric area [...] data Encounters Encounter Performer Location Codes Date ([id number]) PREV VISIT EST AGE 18-39 Diagnosis: Encounter for general adult medical examination with abnormal findings[ICD10: Z00.01] Diagnosis: Right upper quadrant pain[ICD10: R10.11] Diagnosis: Gastro-esophageal reflux disease without esophagitis[ICD10: K21.9] Mila Winn MD, [facility] CPT-4: 28150 04/22/2017 ([id number]) 84696 EST. 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 PATIENT, LEVEL III Diagnosis: Rash and other nonspecific skin eruption[ICD10: R21] Diagnosis: Bitten or stung by nonvenomous insect and other nonvenomous arthropods, initial encounter[ICD10: W57.XXXA] Diagnosis: Gastro-esophageal reflux disease without esophagitis[ICD10: K21.9] [facility] CPT-4: 45180 10/18/2016 ([id number]) Miscellaneous no charge Diagnosis: Dysuria[ICD10: R30.0] [facility] CPT-4: 58035 07/08/2016 ([id number]) PREV VISIT EST AGE 18-39 Diagnosis: Encounter for general adult medical examination without abnormal findings[ICD10: Z00.00] Diagnosis: Other obesity due to excess calories[ICD10: E66.09] [facility] CPT-4: 38051 05/20/2016 [id number] EST. PATIENT, LEVEL IV Diagnosis: Other acute sinusitis[ICD10: J01.80] Diagnosis: Other allergic rhinitis[ICD10: J30.89] Diagnosis: Acute laryngopharyngitis[ICD10: J06.0] [facility] CPT-4: 41997 10/08/2015 ([id number]) 51240 EST. PATIENT, LEVEL III Diagnosis: Elevated blood-pressure reading, without diagnosis of hypertension[ ICD10: R03.0] Diagnosis: Irregular menstruation, unspecified[ICD10: N92.6] Gi Winn MD, [facility] CPT-4: 06062 04/25/2015 ([id number]) 13449 EST. PATIENT, LEVEL III Diagnosis: Pain in right ankle and joints of right foot[ICD10: M25.571] Diagnosis: Ganglion, right ankle and foot[ICD10: M67.471] [facility] CPT-4: 68564 02/27/2015 21715 EST. PATIENT, LEVEL II Diagnosis: Cellulitis of abdominal wall[ICD10: L03.311] Gi Winn MD, [facility] CPT-4: 36901 02/10/2015 ([id number]) 02229 EST. PATIENT, LEVEL III Diagnosis: Elevated blood pressure[ICD9: 796.2] Diagnosis: Neck pain[ICD9: 723.1] Diagnosis: Missed period[ICD9: 626.4] Diagnosis: Fatigue[ICD9: 780.79] [facility] CPT-4: 99948 08/02/2014 ([id number]) PREV VISIT NEW AGE 18-39 Diagnosis: PREVENTIVE PHYSICAL EXAM[ICD9: V70.0] [facility] CPT-4: 65553 05/20/2014 Plan of Care Planned Activity Notes Codes Status Date Appointment: Gi Jones WPtel: [address] [place], [place] [phone] [place] (15 min) Moderate 05/27/2017 Visit Plan: [...] not improving. 04/22/2017 Appointment: Mila Avila WPtel: [phone] [facility] (30 min) Complex 04/22/2017 Patient Education: Patient [...] levels. 11/18/2016 Appointment: Angelika Winn WPtel: [phone] [facility] (15 min) Moderate 11/18/2016 Patient Education: Patient [...] not improving. 10/18/2016 Appointment: Mila Avila WPtel: [phone] [facility] (15 min) Moderate 10/18/2016 Patient [...] renal functioning. 05/20/2016 Appointment: Gi Jones WPtel: [phone] [phone] (30 min) Complex 05/20/2016 Patient Education: Patient [...] patient's pharmacy. 10/08/2015 [facility]ment[phone] (15 min) Moderate [...] Tourette's syndrome. 05/20/2014 Appointment: Angelika Winn WPtel[facility] New Patient 05/20/2014 Patient Education: Patient Medication [...] in the diet. Late period-check Hcg . Lyme disease, Arjun Mnt Spotted Fever [...]
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
[2018-02-16 07:30] VITALS: BP 120/79
[2018-02-16] MEDS ORDERED: BUPIVACAINE 0.25% 30 ML (SENSORCAINE) VIAL ONE (07:37)
[2018-02-16] MEDS: LACTATED RINGERS 1,000 ML IV PRN ×2 (08:05→09:48)
[2018-02-16 08:09] LABS: BASOPHILS % (AUTO) 1 % (0-10); EOSINOPHILS # (AUTO) 0.2 10^3/uL (0.0-0.3); EOSINOPHILS % (AUTO) 3 % (0-10); HEMATOCRIT 39 % (35-52); HEMOGLOBIN 13.4 G/DL (11.5-16.0); LYMPHOCYTES # (AUTO) 2.6 X 10^3 (1.0-4.0); LYMPHOCYTES % (AUTO) 31 % (12-44); MEAN CORPUSCULAR HEMOGLOBIN 28 PG (25-34); MEAN CORPUSCULAR HGB CONC 34 G/DL (32-36); MEAN CORPUSCULAR VOLUME 82 FL (80-99); MONOCYTES # (AUTO) 0.5 X 10^3 (0.0-1.0); MONOCYTES % (AUTO) 7 % (0-12); NEUTROPHILS # (AUTO) 4.9 X 10^3 (1.8-7.8); NEUTROPHILS % (AUTO) 59 % (42-75); PLATELET COUNT 312 10^3/uL (130-400); RED BLOOD COUNT 4.72 10^6/uL (4.35-5.85); RED CELL DISTRIBUTION WIDTH 14.3 % (10.0-14.5); WHITE BLOOD COUNT 8.3 10^3/uL (4.3-11.0)
[2018-02-16] MEDS ORDERED: fentaNYL INJECTION 100 MCG/2 ML AMP ONE (08:16)
[2018-02-16] MEDS ORDERED: MIDAZOLAM 2 MG/2 ML (VERSED) VIAL ONE (08:16)
[2018-02-16] MEDS ORDERED: ONDANSETRON 4 MG/2 ML (SDV) Z0FRAN ONE ×2 (08:20→08:28)
[2018-02-16] MEDS ORDERED: DEXAMETHASONE 10 MG/ML (DECADRON) 1 ML VIAL ONE ×2 (08:20→08:28)
[2018-02-16] MEDS ORDERED: LIDOCAINE PF 2% 5 ML (XYLOCAINE) VIAL ONE ×2 (08:20→08:28)
[2018-02-16] MEDS ORDERED: proPOfol 200 MG/20 ML (DIPRIVAN) VIAL IV ONE ×2 (08:20→08:28)
[2018-02-16] MEDS ORDERED: ROCURONIUM 10 MG/ML 5 ML SYRINGE IV ONE (08:28)
[2018-02-16] MEDS ORDERED: SEVOFLURANE (ULTANE) 15 ML INHAL SOLN ONE ×6 (08:28→10:20)
--- NOTE | 2018-02-16 09:07 | Progress Note-Pre Operative ---
Pre-Operative Progress Note H&P Reviewed The H&P was reviewed, patient examined and no changes noted. Date Seen by Provider: Feb 16, 2018 Time Seen by Provider: 08:45 Date H&P Reviewed: Feb 16, 2018 Time H&P Reviewed: 09:00 Pre-Operative Diagnosis: Secondary dysmenorrhea, CPP DANIELA CHEN DO Feb 16, 2018 09:06
[2018-02-16] MEDS ORDERED: D5 LR IV SOLUTION 1,000 ML IV SCH (09:08)
--- NOTE | 2018-02-16 09:10 | Discharge Inst-Women's Service ---
Discharge Inst-Women's Serv Depart Medication/Instructions New, Converted or Re-Newed RX: RX on Chart Consults/Follow Up Additional Follow Up: Yes Orders/Referrals Dr. Yanes in 10-14 days Activity Activity: Activity as Tolerated Driving Instructions: You May Drive (do not drive while taking hydrocodone) NO SMOKING: NO SMOKING Nothing Inside Vagina: No Douching, No [place], No Tampons Diet Discharge Diet: No Restrictions Symptoms to Report to : Bleeding Excessive, Pain Increased, Fever Over 101 Degrees F, Vaginal Bleeding Increase, Questions/Concerns For Any Problems or Questions: Contact Your Physician Skin/Wound Care Infection Signs and Symptoms: Increased Redness, Foul Odor of Wound, Increased Drainage, Skin Itchy or Has a Rash, Increased Swelling, Temperature Above 101 F Stitches/[place]/Dermabond: Dermabond, Care of Stitches Bathing Instructions: DANIELA Hawk DO Feb 16, 2018 09:10
[2018-02-16] MEDS ORDERED: IBUP-1773 PO (09:11)
[2018-02-16] MEDS ORDERED: ACHD5005 PO (09:11)
[2018-02-16] MEDS ORDERED: HYDROcodone/APAP 5 MG/325 MG (LORTAB) TAB PO PRN (09:15)
[2018-02-16] MEDS ORDERED: ONDANSETRON 4 MG/2 ML (SDV) Z0FRAN IVP PRN ×2 (09:15→10:45)
[2018-02-16] MEDS ORDERED: KETOROLAC 30 MG/ML VIAL IVP ONE (09:15)
[2018-02-16] MEDS ORDERED: INDIGO CARMINE 8 MG/ML 5 ML AMP ONE (09:26)
[2018-02-16] MEDS ORDERED: LACTATED RINGERS 1,000 ML IV ONE (09:46)
[2018-02-16] MEDS ORDERED: MEPERIDINE (DEMEROL) INJ 50 MG/ML IVP ONE (10:45)
[2018-02-16] MEDS ORDERED: morphine INJ 10 MG/ML 1ML (SYR OR VIAL) IVP ONE (10:45)
[2018-02-16] MEDS ORDERED: morphine INJ 10 MG/ML 1ML (SYR OR VIAL) ONE (10:46)
[2018-02-16 11:25] VITALS: BP 129/83
[2018-02-16 11:30] VITALS: BP 129/83
[2018-02-16 11:55] VITALS: BP 111/70
[2018-02-16 12:25] VITALS: BP 107/64
[2018-02-16] MEDS ORDERED: PROMETHAZINE INJ 25 MG/ML (PHENERGAN) AMP IVP ONE (13:00)
--- NOTE | 2018-02-16 14:40 | Anesthesia-General Post-Op ---
General Patient Condition Mental Status/LOC: Same as Preop Cardiovascular: Satisfactory Nausea/Vomiting: Absent Respiratory: Satisfactory Pain: Controlled Complications: Absent Post Op Complications Complications None Follow Up Care/Instructions Patient Instructions None needed. Anesthesia/Patient Condition Patient Condition Patient is doing well, no complaints, stable vital signs, no apparent adverse anesthesia problems. No complications reported per nursing. JOSE GAMEZ CRNA Feb 16, 2018 14:40
--- NOTE | 2018-02-16 18:37 | Operative Report ---
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 She is placed in the dorsal lithotomy position prepped and draped in normal sterile fashion. A timeout is performed. Frazier catheter is then placed using sterile technique. A weighted speculum was inserted to the patient 's vagina and a right angle retractor is used to visualize the cervix which is grasped at the 12 o'clock position using a long Allis clamp. Uterine cavity depth is then gently sounded and found to be 7 cm I then placed a kroner uterine manipulator to a depth of 7 cm. The plane the balloon allows for excellent uterine manipulation. I then removed all the other estrogen the patient's vagina leaving the kroner in place and the Frazier catheter in place. A change of gloves was then performed in my attention is then taken to the abdomen where infraumbilically I infiltrate this area using quarter percent Marcaine. Make a 5 mm incision using a knife and direct a varies needle to the incision to intraperitoneal placement was confirmed using a saline drop test. I then proceed with insufflation using CO2 gas, and opening pressure of 5 mmHg is noted I proceed to a maximum pressure of 15 mmHg which point I removed the varies needle and introduce a 5 mm blunt trocar. Unable to confirm intraperitoneal placement using the 5 mm laparoscope. The patient is placed in steep Trendelenburg and I'm able to visualize all of my pelvic anatomy. The ovaries are plastered together with adhesions and also stuck to the pelvic sidewall. There is filmy implants of endometriosis in the vesicouterine peritoneum there is also significant amount of endometriosis noted in the posterior cul-de-sac. Approximately 30 minutes is taken to breakdown adhesions from the ovary bilaterally to the bilateral pelvic sidewalls. In this process several endometriomas were encountered and chocolate cyst contents are spilled out into the peritoneum. I could see irrigate the pelvis using normal saline. This dissection is done by means of 2 separate trocar sites a suprapubic trocar in the left lower quadrant trocar which is placed in a similar fashion. I used an Endo Shear to dissect a portion of the endometrioma wall for tissue diagnosis and confirmation of endometriosis. This is sent as left ovarian cyst wall. Chromotubation was then performed after the ovaries have been liberated from the pelvic sidewall there is extensive dye spillage from the left fallopian tube there is no dye spillage from the right fallopian tube even though there is no evidence of obstruction or adhesions. Once again no active bleeding is noted from any metastatic dissection planes I then removed the suprapubic trocar in the left lower quadrant trocar under regulation the laparoscope the infraumbilical trochars left in place to introduce 10 mL ports and Marcaine for postoperative pain management and to release insufflation once this is done the skin is reapproximated using skin affix and covered using Band- Aids the kroner uterine manipulator was removed and the Frazier catheter is removed the patient tolerated the procedure well and is taken to recovery area in stable condition lap and sponge count is correct at the end of the procedure instrument count is correct as well. Findings of the Procedure Extensive pelvic endometriosis and peritoneal endometriosis as well as endometriomas of bilateral ovaries Allergies and Home Medications Allergies Coded Allergies: Penicillins (Unverified Allergy, Mild, 08/09/08) Home Medications Hydrocodone Bit/Acetaminophen 1 Tab Tab, 1 TAB PO Q4H PRN for PAIN-MODERATE Prescribed by: DANIELA CHEN on 02/16/18910 Ibuprofen 600 Mg Tablet, 600 MG PO Q6H Prescribed by: DANIELA CHEN on 02/16/18910 Metformin HCl 500 Mg Tablet, 500 MG PO BID, (Reported) Omeprazole 40 Mg Capsule.dr, 40 MG PO DAILY PRN for HEARTBURN, (Reported) Patient Home Medication List Home Medication List Reviewed: Yes DANIELA CHEN DO Feb 16, 2018 6:37 pm
== END 2018-02-16 14:30 | disposition home or self-care (01) ==
LOC: SDC 07:07
PROVIDERS: ATTEND Obstetrics & Gynecology
DX: N94.5 Secondary dysmenorrhea (principal); N80.1 Endometriosis of ovary; N80.3 Endometriosis of pelvic peritoneum; E28.2 Polycystic ovarian syndrome; N73.6 Female pelvic peritoneal adhesions (postinfective); I10 Essential (primary) hypertension; K21.9 Gastro-esophageal reflux disease without esophagitis; E66.9 Obesity, unspecified; Z68.38 Body mass index [BMI] 38.0-38.9, adult; Z79.84 Long term (current) use of oral hypoglycemic drugs
CPT/HCPCS: 36415; 84703; 85025; 86850; 86900; 86901; 87081; 94664

== ENCOUNTER 2018-08-25 14:37 | Emergency (ER) | payer OTHER ==
[~2018-08-25] VITALS: Ht 170.2 cm; Wt 90.7 kg
[~2018-08-25 14:37] MED LIST changes: +ACHD5005 PO; +IBUP-1773 PO
--- NOTE | 2018-08-25 14:56 | ED General ---
General Stated Complaint: FAINTED 4 TIMES Source of Information: Patient Exam Limitations: No Limitations History of Present Illness Date Seen by Provider: Aug 25, 2018 Time Seen by Provider: 14:51 Initial Comments To ER by wheelchair from [facility] where she is employed. She was tender talking to her boss when she suddenly very lightheaded. She states this has happened 4 times today, she had been standing for some time and had not just stood up. She states that during these episodes "I feel really hot, like I want to cry, and then I almost pass out". She denies any palpitations or shortness of breath. She states that she has had some troubles with chest pain after she eats, she feels as though food gets stuck to breathe, then it passes. She states she does feel a little bit anxious now. She did take a dose of Deplin, food supplement for depression yesterday. Timing/Duration: 1/2 Hour Severity: Moderate Allergies and Home Medications Allergies Coded Allergies: Penicillins (Unverified Allergy, Mild, 08/25/18) Home Medications Hydrocodone Bit/Acetaminophen 1 Tab Tab, 1 TAB PO Q4H PRN for PAIN-MODERATE Prescribed by: DANIELA CHEN on 02/16/18 09 Ibuprofen 600 Mg Tablet, 600 MG PO Q6H Prescribed by: DANIELA CHEN on 02/16/18 0911 Metformin HCl 500 Mg Tablet, 500 MG PO BID, (Reported) Omeprazole 40 Mg Capsule.dr, 40 MG PO DAILY PRN for HEARTBURN, (Reported) Patient Home Medication List Home Medication List Reviewed: Yes Review of Systems Review of Systems Constitutional: see HPI EENTM: see HPI Respiratory: no symptoms reported Cardiovascular: no symptoms reported Genitourinary: no symptoms reported Musculoskeletal: no symptoms reported Skin: no symptoms reported Psychiatric/Neurological: See HPI, Anxiety Hematologic/Lymphatic: No Symptoms Reported Immunological/Allergic: no symptoms reported Past Yvnrffa-Ekkqtm-Msdhbb Hx Patient Social History 2nd Hand Smoke Exposure: No Recent Foreign Travel: No Contact w/Someone Who Travel: No Recent Hopitalizations: No Immunizations Up To Date Tetanus Booster (TDap): Unknown PED Vaccines UTD: No Date of Influenza Vaccine: Nov 28, 2017 Seasonal Allergies Seasonal Allergies: Yes Past Medical History Surgeries: Yes (COLONOSCOPY) Orthopedic Respiratory: No Cardiac: No Neurological: No Reproductive Disorders: Yes (CPP) Female Reproductive Disorders: Menstrual Problems, Ovarian Cyst Sexually Transmitted Disease: No HIV/AIDS: No Genitourinary: No Gastrointestinal: No Gastroesophageal Reflux, Chronic Constipation, Chronic Diarrhea Musculoskeletal: Yes (RT ANKLE RECONSTRUCTION) Fractures Endocrine: No HEENT: No Loss of Vision: Denies Hearing Impairment: Denies Cancer: No Psychosocial: No Anxiety, Depression Integumentary: No Blood Disorders: No Adverse Reaction/Blood Tranf: No (N/A) Physical Exam Vital Signs Vital Signs - First Documented 08/25/18 14:50 Temp 98.0 Pulse 76 Resp 18 B/P (MAP) 161/101 (121) Pulse Ox 99 O2 Delivery Room Air Capillary Refill : Height, Weight, BMI Height: 5'9.00" Weight: 257lbs. 0.0oz. 116.767655gh; 38.0 BMI Method:Stated General Appearance: No Apparent Distress, WD/WN, Anxious Eyes: Bilateral Eye Normal Inspection, Bilateral Eye PERRL, Bilateral Eye EOMI HEENT: PERRL/EOMI, TMs Normal Neck: Full Range of Motion, Normal Inspection Respiratory: Normal Breath Sounds, No Accessory Muscle Use, No Respiratory Distress Cardiovascular: Regular Rate, Rhythm, Normal Peripheral Pulses Gastrointestinal: Non Tender, Soft Extremity: Normal Capillary Refill, Normal Inspection (I just washed dressed on) Neurologic/Psychiatric: Alert, Oriented x3, No Motor/Sensory Deficits Skin: Normal Color, Warm/Dry Progress/Results/Core Measures Suspected Sepsis SIRS Temperature: Pulse: Respiratory Rate: Laboratory Tests 08/25/18 14:49: White Blood Count 8.1 Blood Pressure / Mean: Laboratory Tests 08/25/18 14:49: Creatinine 0.74, Platelet Count 273, Total Bilirubin 0.4 Results/Orders Lab Results Laboratory Tests Test 08/25/18 14:49 08/25/18 15:25 Range/Units White Blood Count 8.1 4.3-11.0 10^3/uL Red Blood Count 4.72 4.35-5.85 10^6/uL Hemoglobin 13.3 11.5-16.0 G/DL Hematocrit 40 35-52 % Mean Corpuscular Volume 84 80-99 FL Mean Corpuscular Hemoglobin 28 25-34 PG Mean Corpuscular Hemoglobin Concent 33 32-36 G/DL Red Cell Distribution Width 14.0 10.0-14.5 % Platelet Count 273 130-400 10^3/uL Mean Platelet Volume 10.5 H 7.4-10.4 FL Neutrophils (%) (Auto) 66 42-75 % Lymphocytes (%) (Auto) 26 12-44 % Monocytes (%) (Auto) 6 0-12 % Eosinophils (%) (Auto) 2 0-10 % Basophils (%) (Auto) 0 0-10 % Neutrophils # (Auto) 5.3 1.8-7.8 X 10^3 Lymphocytes # (Auto) 2.1 1.0-4.0 X 10^3 Monocytes # (Auto) 0.5 0.0-1.0 X 10^3 Eosinophils # (Auto) 0.2 0.0-0.3 10^3/uL Basophils # (Auto) 0.0 0.0-0.1 10^3/uL D-Dimer 0.44 0.00-0.49 UG/ML Sodium Level 138 135-145 MMOL/L Potassium Level 3.6 3.6-5.0 MMOL/L Chloride Level 103 98-107 MMOL/L Carbon Dioxide Level 24 21-32 MMOL/L Anion Gap 11 5-14 MMOL/L Blood Urea Nitrogen 11 7-18 MG/DL Creatinine 0.74 0.60-1.30 MG/DL Estimat Glomerular Filtration Rate > 60 BUN/Creatinine Ratio 15 Glucose Level 103 70-105 MG/DL Calcium Level 9.3 8.5-10.1 MG/DL Corrected Calcium 9.0 8.5-10.1 MG/DL Total Bilirubin 0.4 0.1-1.0 MG/DL Aspartate Amino Transf (AST/SGOT) 15 5-34 U/L Alanine Aminotransferase (ALT/SGPT) 15 0-55 U/L Alkaline Phosphatase 75 40-136 U/L Troponin I < 0.028 <0.028 NG/ML Total Protein 7.3 6.4-8.2 GM/DL Albumin 4.4 3.2-4.5 GM/DL Thyroid Stimulating Hormone (TSH) 2.28 0.35-4.94 UIU/ML Free Thyroxine 0.93 0.70-1.48 NG/DL Serum Test, Qualitative NEGATIVE NEGATIVE Urine Color YELLOW Urine Clarity CLEAR Urine pH 7 5-9 Urine Specific [place] 1.015 L 1.016-1.022 Urine Protein NEGATIVE NEGATIVE Urine Glucose (UA) NEGATIVE NEGATIVE Urine Ketones NEGATIVE NEGATIVE Urine Nitrite NEGATIVE NEGATIVE Urine Bilirubin NEGATIVE NEGATIVE Urine Urobilinogen NORMAL NORMAL MG/DL Urine Leukocyte Esterase NEGATIVE NEGATIVE Urine RBC (Auto) 1+ H NEGATIVE Urine RBC RARE /HPF Urine WBC NONE /HPF Urine Squamous Epithelial Cells 2-5 /HPF Urine Crystals NONE /LPF Urine Bacteria TRACE /HPF Urine Casts NONE /LPF Urine Mucus NEGATIVE /LPF Urine Culture Indicated NO My Orders Orders - JOSEP SKY APRN Ekg Tracing (08/25/18 14:43) Advertisement Compositor (08/25/18 14:43) Cbc With Automated Diff (08/25/18 14:43) Comprehensive Metabolic Panel (08/25/18 14:43) Thyroid Stimulating Hormone (08/25/18 14:43) Free T4 (Free Thyroxine) (08/25/18 14:43) Suspected Magnesium Toxicity (08/25/18 14:43) Fibrin Degradation Products (08/25/18 14:43) Troponin I (08/25/18 14:43) Ua Culture If Indicated (08/25/18 14:43) Hcg,Qualitative Serum (08/25/18 14:43) Lorazepam Injection (Ativan Injection) (08/25/18 15:00) Medications Given in ED Vital Signs/I&O Capillary Refill : Departure Impression Primary Impression: Flushing Additional Impression: Near syncope Disposition: 01 HOME, SELF-CARE Condition: Stable Departure-Patient Inst. Decision time for Depature: 15:51 Referrals: MARLON ALFONSO MD (PCP/Family) Primary Care Physician Patient Instructions: Syncope (Fainting) (DC), Near Fainting Add. Discharge Instructions: 1. Follow-up with your regular doctor next week 2. The Deplin could have contributed to these symptoms, it could be unrelated. Further usage of that I would leave up to your own judgment. JOSEP SKY APRN Aug 25, 2018 14:56
[2018-08-25 14:58] LABS: BASOPHILS % (AUTO) 0 % (0-10); EOSINOPHILS # (AUTO) 0.2 10^3/uL (0.0-0.3); EOSINOPHILS % (AUTO) 2 % (0-10); HEMATOCRIT 40 % (35-52); HEMOGLOBIN 13.3 G/DL (11.5-16.0); LYMPHOCYTES # (AUTO) 2.1 X 10^3 (1.0-4.0); LYMPHOCYTES % (AUTO) 26 % (12-44); MEAN CORPUSCULAR HEMOGLOBIN 28 PG (25-34); MEAN CORPUSCULAR HGB CONC 33 G/DL (32-36); MEAN CORPUSCULAR VOLUME 84 FL (80-99); MEAN PLATELET VOLUME 10.5 FL (7.4-10.4); MONOCYTES # (AUTO) 0.5 X 10^3 (0.0-1.0); MONOCYTES % (AUTO) 6 % (0-12); NEUTROPHILS # (AUTO) 5.3 X 10^3 (1.8-7.8); NEUTROPHILS % (AUTO) 66 % (42-75); PLATELET COUNT 273 10^3/uL (130-400); WHITE BLOOD COUNT 8.1 10^3/uL (4.3-11.0)
[2018-08-25] MEDS ORDERED: LORazepam INJ 2 MG/ML (ATIVAN) VIAL IVP PRN (15:00)
[2018-08-25 15:16] LABS: ALANINE AMINOTRANSFERASE 15 U/L (0-55); ALBUMIN 4.4 GM/DL (3.2-4.5); ALKALINE PHOSPHATASE 75 U/L (40-136); BILIRUBIN,TOTAL 0.4 MG/DL (0.1-1.0); BUN/CREATININE RATIO 15; CALCIUM 9.3 MG/DL (8.5-10.1); CARBON DIOXIDE 24 MMOL/L (21-32); CHLORIDE 103 MMOL/L (98-107); CREATININE SERUM 0.74 MG/DL (0.60-1.30); GFR ESTIMATED > 60; GLUCOSE 103 MG/DL (70-105); POTASSIUM 3.6 MMOL/L (3.6-5.0); SODIUM 138 MMOL/L (135-145); TOTAL PROTEIN 7.3 GM/DL (6.4-8.2)
[2018-08-25 15:32] LABS: BILIRUBIN,URINE NEGATIVE (NEGATIVE); CLARITY,URINE CLEAR; COLOR,URINE YELLOW; GLUCOSE, URINE (UA) NEGATIVE (NEGATIVE); KETONES,URINE NEGATIVE (NEGATIVE); LEUKOCYTE ESTERASE ,URINE NEGATIVE (NEGATIVE); NITRITE,URINE NEGATIVE (NEGATIVE); PH,URINE 7 (5-9); PROTEIN,URINE NEGATIVE (NEGATIVE); UROBILINOGEN,URINE NORMAL (NORMAL)
[2018-08-25 15:37] LABS: FREE T4 (FREE THYROXINE) 0.93 NG/DL (0.70-1.48)
[2018-08-25 15:50] LABS: BACTERIA,URINE TRACE /HPF; RBC,URINE RARE /HPF
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
[2018-08-25 16:08] VITALS: BP 126/85
--- OUTSIDE RECORDS SUMMARY | 2018-08-25 18:59 | XMS REPORT | CCD ---
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 Name Role Phone PP Unavailable CCM Unavailable Summary Purpose Interface Exchange Insurance Providers Payer name Policy type / Coverage type Covered democrat ID Effective Begin Date Effective End Date [employer] Commercial Insurance [id number] 2018 Unknown Family history Sister Diagnosis Age At Onset No Known Diseases N/A Mother Diagnosis Age At Onset Arthritis Unknown Hyperlipidemia Unknown Depression Unknown Father Diagnosis Age At Onset defect Unknown Diabetes mellitus Type 2 Unknown Hyperlipidemia Unknown Hypertension Unknown Social History Social History Element Codes Description Effective Dates Marital status Unknown Jennifer 04/25/[address]: 8974915 Former smoker 02/10/[address]: 295915480 Never drinks alcohol 02/10/2015 Allergies, Adverse Reactions, Alerts Substance Reaction Codes Entered Date Inactivated Date Status Penicillin Unknown 05/20/2014 No Inactive Date Active Past Medical History Illness Codes Condition Status Onset Date Resolved Date Muscle spasm of back ICD- 9: 724.8 ICD-10: M62.830 Active 06/26/2018 Unknown Other conditions associated with Lyme disease ICD-9: 088.81 ICD-10: A69.29 Active 11/18/2016 Unknown Pain in thoracic spine ICD-9: 724.1 ICD-10: M54.6 Active 06/26/2018 Unknown Acute laryngopharyngitis ICD-9: 465.0 ICD-10: J06.0 [...] ICD-9: 780.61 ICD-10: R50.81 Active 11/18/2016 Unknown Spotted fever due to [...] E66.09 Active 05/20/2016 Unknown Other acute sinusitis ICD- 9: 461.8 ICD-10: J01.80 Active 10/07/2015 Unknown Other [...] Problems Condition Codes Effective Dates Condition Status Muscle spasm of back ICD- 9: 724.8 ICD-10: M62.830 06/26/2018 Active Other conditions associated with Lyme disease ICD-9: 088.81 ICD-10: A69.29 11/18/2016 Active Pain in thoracic spine ICD-9: 724.1 ICD-10: M54.6 06/26/2018 Active Acute laryngopharyngitis ICD-9: 465.0 ICD-10: J06.0 [...] elsewhere ICD-9: 780.61 ICD-10: R50.81 11/18/2016 Active Spotted fever due to Rickettsia [...] ICD-10: E66.09 05/20/2016 Active Other acute sinusitis ICD- 9: 461.8 ICD-10: J01.80 10/07/2015 Active Other allergic [...] Start Date Stop Date Status Fill Instructions cyclobenzaprine 5 mg tablet RxNorm: 972356 1-2 Tablet(s) PO TID as needed muscle spasms 06/26/2018 07/05/2018 Active doxycycline hyclate 100 mg capsule RxNorm: 0262612 1 Capsule(s) PO BID 06/26/2018 07/25/2018 Active stop vitamin while on doxy Kenalog 40 mg/mL suspension for injection RxNorm: 9870569 1 Milliliter(s) Inj 06/26/2018 06/26/2018 Inactive prednisone 20 mg tablet RxNorm: 446601 2 Tablet(s) PO daily 02/09/2018 02/11/2018 Inactive Zithromax Z-Juni 250 mg tablet RxNorm: 634652 1 Tablet(s) PO UD 02/09/2018 02/13/2018 Inactive promethazine 25 mg tablet RxNorm: 171918 1 Tablet(s) PO TID as needed nausea 02/08/2018 02/12/2018 Inactive promethazine 25 mg tablet RxNorm: 032253 1 Tablet(s) PO TID as needed nausea 02/08/2018 02/07/2018 Inactive omeprazole 20 mg capsule,delayed release RxNorm: 450215 1 Capsule(s) PO BID 10/14/2017 01/11/2018 Inactive meclizine 25 mg tablet RxNorm: 908915 1 Tablet(s) PO TID as needed Dizziness 05/02/2017 05/01/2017 Inactive meclizine 25 mg tablet RxNorm: 003258 1 Tablet(s) PO TID as needed Dizziness 05/02/2017 05/31/2017 Inactive Prilosec OTC 20 mg tablet,delayed release RxNorm: 548039 1 Tablet(s) PO BID 05/02/2017 05/01/2017 Inactive Prilosec OTC 20 mg tablet,delayed release RxNorm: 728381 1 Tablet(s) PO BID 05/02/2017 05/31/2017 Inactive dapsone 100 mg tablet RxNorm: 486441 1 Tablet(s) PO daily 11/18/2016 11/27/2016 Inactive doxycycline hyclate 100 mg capsule RxNorm: 5618455 1 Capsule(s) PO BID 10/20/2016 11/18/2016 Inactive stop vitamin while on doxy omeprazole 20 mg capsule,delayed release RxNorm: 673917 1 Capsule(s) PO daily 10/18/2016 10/31/2016 Inactive doxycycline hyclate 100 mg capsule RxNorm: 6428069 1 Capsule(s) PO BID 10/18/2016 10/19/2016 Inactive stop vitamin while on doxy Saxenda 3 mg/0.5 mL (18 mg/3 mL) subcutaneous pen injector RxNorm: 3605355 3 Milliliter(s) SQ daily 05/21/2016 10/17/2016 Inactive Saxenda 3 mg/0.5 mL (18 mg/3 mL) subcutaneous pen injector RxNorm: 0058937 Milliliter(s) SQ 05/20/2016 05/20/2016 Inactive Kenalog 40 mg/mL suspension for injection RxNorm: 7494582 Milliliter(s) Inj 10/08/2015 10/08/2015 Inactive Zithromax Z-Juni 250 mg tablet RxNorm: 383703 1 Tablet(s) PO UD 10/08/2015 05/19/2016 Inactive labetalol 100 mg tablet RxNorm: 180773 1 Tablet(s) PO BID 04/29/2015 04/28/2015 Inactive labetalol 100 mg tablet RxNorm: 611936 1 Tablet(s) PO BID 04/29/2015 10/07/2015 Inactive Cipro 500 mg tablet RxNorm: 203532 1 Tablet(s) PO BID 04/26/2015 05/19/2016 Inactive Cipro 500 mg tablet RxNorm: 840364 1 Tablet(s) PO BID 04/26/2015 04/25/2015 Inactive Bactrim DS 800 mg-160 mg tablet RxNorm: 589874 1 Tablet(s) PO BID 02/10/2015 02/16/2015 Inactive Vitamin C 500 mg tablet RxNorm: 787121 1 Tablet(s) PO daily No Start Date Active metformin 500 mg tablet RxNorm: 174517 1 Tablet(s) PO BID No Start Date 06/25/2018 Inactive + DHA oral RxNorm: oral No Start Date 02/08/2018 Inactive multivitamin chewable tablet RxNorm: 1 Tablet(s) PO daily No Start Date 11/17/2016 Inactive Medication Administered Medication Codes Instructions Start Date Status Kenalog 40 mg/mL suspension for injection RxNorm: 1681252 1Milliliter 06/26/2018 No longer Active Kenalog 40 mg/mL suspension for injection RxNorm: 9331888 Milliliter 10/08/2015 No longer Active Immunizations No Immunization data Assessments Condition Codes Effective Dates Muscle spasm of back ICD-10: M62.830 ICD-9: 724.8 06/26/2018 Pain in thoracic spine ICD-10: M54.6 ICD-9: 724.1 06/26/2018 Other conditions associated with Lyme disease ICD-10: A69.29 ICD-9: 088.81 06/26/2018 Acute upper respiratory infection, unspecified ICD-10: J06.9 ICD-9: 465.9 02/09/2018 Acute laryngopharyngitis ICD-10: J06.0 ICD-9: 465.0 02/09/2018 Cough ICD-10: R05 ICD-9: 786.2 02/09/2018 Right upper quadrant pain ICD-10: R10.11 ICD-9: 789.01 04/22/2017 Encounter for general adult medical examination with abnormal findings ICD-10: Z00.01 ICD-9: V70.0 04/22/2017 Gastro-esophageal reflux disease without esophagitis ICD-10: K21.9 ICD-9: 530.81 04/22/2017 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 ICD-10: A77.0 ICD-9: 082.0 11/18/2016 Fever presenting with conditions classified elsewhere ICD-10: R50.81 ICD-9: 780.61 11/18/2016 Bitten or stung [...] 682.2 02/10/2015 Elevated blood pressure ICD-9: 796.2 08/02/2014 Fatigue ICD-9: 780.79 08/02/2014 Neck pain ICD-9: 723.1 08/02/2014 Missed period ICD-9: 626.4 08/02/2014 PREVENTIVE PHYSICAL EXAM ICD-9: V70.0 05/20/2014 Reason For Visit Reason For Visit Effective Dates Notes joint complaint 06/26/2018 cough 02/09/2018 abdominal pain 04/22/2017 abnormal test results 11/18/2016 arthropod bite 10/18/2016 well woman exam (18-39 years) 05/20/2016 sinus congestion 10/08/2015 blood pressure followup 04/25/2015 ankle pain 02/27/2015 skin lesion 02/10/2015 hypertension 08/02/2014 neck pain 05/20/2014 Results Observation Observation Code Item Item Code Result Date C A/B FLU 7342228 Influenza A Scr Negative 02/09/2018 C A/B FLU 0379293 Influenza B Scr Negative 02/09/2018 C A/B FLU 3834484 Influenza Intrp B AG:PRID:PT:NOSE:NOM:IF See Footnote 02/09/2018 Arjun Mtn Spot'D Fev Igg 622658 RMSF, IGG- TITER IFA 1:128 10/22/2016 Ehrlichia Chaffeensis Antibody Igg 977432 EHRLICHIA CHAFFEENSIS IGG <1:64 10/22/2016 [place] Spotted Fever Igg/Igm 387210 ARJUN [place] SPOTTED FEVER IGM EIA . 10/22/2016 [place] Spotted Fever Igg/Igm 252465 RMSF, IGM 0.32 index 10/22/2016 [place] Spotted Fever Igg/Igm 729383 ARJUN MT SPOTTED FEVER IGG EIA FLEX . 10/22/2016 [place] Spotted Fever Igg/Igm 618906 RMSF, IGG SCREEN-FLEX Positive 10/22/2016 Ehrlichia Chaffeensis Antibody Igm 919273 EHRLICHIA CHAFFEENSIS IGM < 1:16 10/22/2016 [place] Western Blot Serum 362595 B. BURGDORFERI, IGG WB Negative 10/21/2016 [place] Western Blot Serum 532016 B. BURGDORFERI, IGM WB Negative 10/21/2016 [place] Disease Total Antibodies With Western Blot Reflex [id number] B. BURGDORFERI, IGG/IGM 1.27 LI 10/20/2016 Lymes Disease Total Antibodies With Western Blot Reflex [id number] 10/20/2016 Cbc With Differential Ord2 WBC 7.30 [...] 28.9 pg 10/18/2016 Cbc With Differential Ord2 Terry% 7.1 % 10/18/2016 Cbc With Differential Ord2 [...] 2.13 K/ul 10/18/2016 Cbc With Differential Ord2 Terry ABS# 0.5 K/ul 10/18/2016 Cbc With Differential Ord2 Eos ABS# 0.2 K/ul 10/18/2016 Cbc With Differential Ord2 Baso ABS# 0.0 K/ul 10/18/2016 Tsh Ord6 hTSH II 2.02 uIU/mL 10/18/2016 Comp Metabolic Ceq172 NA 139 mEq/L 10/18/2016 Comp Metabolic Psj875 K 4.2 mEq/L 10/18/2016 Comp Metabolic Cds042 CL 103 mEq/L 10/18/2016 Comp Metabolic Ipy986 CO2 26.0 mEq/L 10/18/2016 Comp Metabolic Hjr014 ANION GAP 14 10/18/2016 Comp Metabolic Tdp373 GLUCOSE 84 mg/dL 10/18/2016 Comp Metabolic Vuq159 Creat 0.5 mg/dL 10/18/2016 Comp Metabolic Wra280 eGFR 158 ml/min/1.73m2 10/18/2016 Comp Metabolic Jgi456 BUN 10 mg/dL 10/18/2016 Comp Metabolic Huo457 B/C Ratio 20.4 Ratio 10/18/2016 Comp Metabolic Vfm566 CALCIUM 9.3 mg/dL 10/18/2016 Comp Metabolic Fiy972 ALK PHOS 67 U/L 10/18/2016 Comp Metabolic Tvj535 AST(SGOT) 11 U/L 10/18/2016 Comp Metabolic Mrc018 ALT(SGPT) 10 U/L 10/18/2016 Comp Metabolic Afb131 BILI T 0.4 mg/dL 10/18/2016 Comp Metabolic Jyu092 ALBUMIN 4.1 g/dL 10/18/2016 Comp Metabolic Tal891 TPRO 6.7 g/dL 10/18/2016 Comp Metabolic Frn118 GLOB 2.6 g/dL 10/18/2016 Comp Metabolic Qzv129 A/G Ratio 1.6 Ratio 10/18/2016 Comp Metabolic Aoy095 Osmo 276 mOsmo 10/18/2016 Lipid Ord30 CHOL 185 mg/dL 06/06/2015 Lipid Ord30 HDL 41.0 mg/dl 06/06/2015 Lipid Ord30 TRIG 108 mg/dL 06/06/2015 Lipid Ord30 LDL 122 mg/dL 06/06/2015 Lipid Ord30 C/HDL 4.5 Ratio 06/06/2015 Tsh Ord6 hTSH II 2.10 uIU/mL 04/28/2015 [facility] Qual Ord68 [facility] Qual Negative 04/25/2015 Cbc With Differential Ord2 [...] 27.7 pg 04/25/2015 Cbc With Differential Ord2 Terry% 6.1 % 04/25/2015 Cbc With Differential Ord2 [...] 1.95 K/ul 04/25/2015 Cbc With Differential Ord2 Terry ABS# 0.6 K/ul 04/25/2015 Cbc With Differential Ord2 Eos ABS# 0.2 K/ul 04/25/2015 Cbc With Differential Ord2 Baso ABS# 0.0 K/ul 04/25/2015 Cbc With Differential Ord2 New Analyzer Notice Please note new ref ranges starting 03-05-2015 due to implemntation of new five part differential hematolgy analyzer. 04/25/2015 Comp Metabolic Ype755 NA 135 mEq/L 04/25/2015 Comp Metabolic Iby417 K 4.0 mEq/L 04/25/2015 Comp Metabolic Eoa522 CL 104 mEq/L 04/25/2015 Comp Metabolic Eqy658 CO2 25.0 mEq/L 04/25/2015 Comp Metabolic Amq181 ANION GAP 10 04/25/2015 Comp Metabolic Gbx678 GLUCOSE 88 mg/dL 04/25/2015 Comp Metabolic Fyr670 Creat 0.5 mg/dL 04/25/2015 Comp Metabolic Ela456 eGFR 167 ml/min/1.73m2 04/25/2015 Comp Metabolic Ayb475 BUN 9 mg/dL 04/25/2015 Comp Metabolic Igv553 B/C Ratio 19.1 Ratio 04/25/2015 Comp Metabolic Bnq925 CALCIUM 9.1 mg/dL 04/25/2015 Comp Metabolic Pwh237 ALK PHOS 61 U/L 04/25/2015 Comp Metabolic Yut338 AST(SGOT) 13 U/L 04/25/2015 Comp Metabolic Yzp300 ALT(SGPT) 12 U/L 04/25/2015 Comp Metabolic Qmy592 BILI T 0.5 mg/dL 04/25/2015 Comp Metabolic Quc137 ALBUMIN 4.3 g/dL 04/25/2015 Comp Metabolic Prj732 TPRO 7.0 g/dL 04/25/2015 Comp Metabolic Gif840 GLOB 2.7 g/dL 04/25/2015 Comp Metabolic Xcf864 A/G Ratio 1.6 Ratio 04/25/2015 Comp Metabolic Jxa171 Osmo 268 mOsmo 04/25/2015 HCG QUANT 4241041 HCG QUANT FOOTNOTE MIU/ML 08/05/2014 TSH 9121788 TSH 2.27 uIU/ML 08/05/2014 CBC 6942212 WBC 8.6 10e9/L 08/02/2014 CBC 7443817 RBC 4.49 10e12/L 08/02/2014 CBC 8422178 HGB 12.7 g/dL 08/02/2014 CBC 0926213 HCT DET 38.1 % 08/02/2014 CBC 3507775 MCV 84.9 fL 08/02/2014 CBC 4078816 MCH 28.3 pg 08/02/2014 CBC [id number] MCHC 33.3 g/dL 08/02/2014 CBC 8502240 PLT 276 10e9/L 08/02/2014 CBC 6667078 MPV 10.4 fL 08/02/2014 CBC [id number] FINN % 67.0 % 08/02/2014 CBC 8663096 LY % 24.3 % 08/02/2014 CBC [id number] MON % 6.5 % 08/02/2014 CBC 4057319 EOS % 2.0 % 08/02/2014 CBC 6024729 BASO % 0.2 % 08/02/2014 CBC 2534843 RDW 14.2 % 08/02/2014 CBC 7707840 ABS FINN 5.76 10e9/L 08/02/2014 CBC [id number] ABS LYMPH 2.09 10e9/L 08/02/2014 CBC 8617613 ABS MONO 0.56 10e9/L 08/02/2014 CBC 4594021 ABS EOS 0.17 10e9/L 08/02/2014 CBC [id number] ABS BASO 0.02 10e9/L 08/02/2014 CBC 3678959 RDW-SD 43.2 fL 08/02/2014 Review of Systems System Result Effective Dates Constitutional No recent illness 06/26/2018 Constitutional No chills 06/26/2018 Constitutional No fever 06/26/2018 Eyes No eye erythema 06/26/2018 Ears/Nose/Throat/Neck No nasal discharge 06/26/2018 Cardiovascular No chest pain/pressure 06/26/2018 Cardiovascular No dyspnea 06/26/2018 Respiratory No cough 06/26/2018 Respiratory No dyspnea 06/26/2018 Musculoskeletal joint complaint 06/26/2018 Neurologic No alteration of consciousness 06/26/2018 Neurologic No mental status change 06/26/2018 Musculoskeletal back pain 06/26/2018 Musculoskeletal myalgias 06/26/2018 Constitutional recent illness 02/09/2018 Constitutional No anorexia 02/09/2018 Constitutional No night sweats 02/09/2018 Constitutional chills 02/09/2018 Constitutional diaphoresis 02/09/2018 Constitutional fatigue 02/09/2018 Constitutional fever 02/09/2018 Constitutional No insomnia 02/09/2018 Constitutional No malaise 02/09/2018 Constitutional No weight loss 02/09/2018 Constitutional No weight gain 02/09/2018 Eyes No eye discharge 02/09/2018 Eyes No eye erythema 02/09/2018 Ears/Nose/Throat/Neck No dizziness 02/09/2018 Ears/Nose/Throat/Neck headache 02/09/2018 Ears/Nose/Throat/Neck nasal discharge 02/09/2018 Ears/Nose/Throat/Neck No otalgia 02/09/2018 Ears/Nose/Throat/Neck No sinus congestion 02/09/2018 Ears/Nose/Throat/Neck sore throat 02/09/2018 Cardiovascular No chest pain/pressure 02/09/2018 Respiratory cough 02/09/2018 Gastrointestinal No abdominal pain 02/09/2018 Gastrointestinal No constipation 02/09/2018 Gastrointestinal diarrhea 02/09/2018 Genitourinary/Nephrology No dysuria 02/09/2018 Musculoskeletal arthralgia(s) 02/09/2018 Dermatologic No rash 02/09/2018 Neurologic No alteration of consciousness 02/09/2018 Constitutional No recent illness 04/22/2017 Constitutional No chills 04/22/2017 Constitutional No diaphoresis 04/22/2017 Constitutional No fever 04/22/2017 Eyes No eye erythema 04/22/2017 Ears/Nose/Throat/Neck No nasal discharge 04/22/2017 Cardiovascular No chest pain/pressure 04/22/2017 Cardiovascular No dyspnea 04/22/2017 Respiratory No cough 04/22/2017 Respiratory No chest congestion 04/22/2017 Gastrointestinal abdominal pain 04/22/2017 Gastrointestinal No constipation 04/22/2017 Gastrointestinal No diarrhea 04/22/2017 Gastrointestinal No vomiting 04/22/2017 Gastrointestinal No nausea 04/22/2017 Gastrointestinal gastroesophageal reflux 04/22/2017 Gastrointestinal gas and bloating 04/22/2017 Genitourinary/Nephrology No dysuria 04/22/2017 Musculoskeletal No joint complaint 04/22/2017 Dermatologic No rash 04/22/2017 Neurologic No alteration of consciousness 04/22/2017 Neurologic No mental status change 04/22/2017 Constitutional No recent illness 11/18/2016 Constitutional No chills 11/18/2016 Constitutional No diaphoresis 11/18/2016 Constitutional No fever 11/18/2016 Eyes No blindness 11/18/2016 Ears/Nose/Throat/Neck No nasal allergies 11/18/2016 Ears/Nose/Throat/Neck No nasal discharge 11/18/2016 Cardiovascular No dyspnea 11/18/2016 Cardiovascular No hypertension 11/18/2016 Respiratory No cough 11/18/2016 Respiratory No dyspnea 11/18/2016 Gastrointestinal No abdominal pain 11/18/2016 Musculoskeletal joint complaint 11/18/2016 Neurologic No alteration of consciousness 11/18/2016 Neurologic No mental status change 11/18/2016 Psychiatric No anxiety 11/18/2016 Musculoskeletal stiffness 11/18/2016 Musculoskeletal arthralgia(s) 11/18/2016 Constitutional No recent illness 10/18/2016 Constitutional No chills 10/18/2016 Constitutional No diaphoresis 10/18/2016 Constitutional No fever 10/18/2016 Eyes No eye erythema 10/18/2016 Ears/Nose/Throat/Neck No nasal discharge 10/18/2016 Ears/Nose/Throat/Neck No nasal allergies 10/18/2016 Cardiovascular No dyspnea 10/18/2016 Cardiovascular No hypertension 10/18/2016 Respiratory No cough 10/18/2016 Respiratory No dyspnea 10/18/2016 Gastrointestinal No abdominal pain 10/18/2016 Musculoskeletal No joint complaint 10/18/2016 Dermatologic rash 10/18/2016 Neurologic No alteration of consciousness 10/18/2016 Neurologic No mental status change 10/18/2016 Constitutional No fatigue 05/20/2016 Constitutional No fever 05/20/2016 Constitutional No insomnia 05/20/2016 Eyes No eye discharge 05/20/2016 Eyes No eye erythema 05/20/2016 Ears/Nose/Throat/Neck No headache 05/20/2016 Cardiovascular No chest pain/pressure 05/20/2016 Cardiovascular No edema 05/20/2016 Cardiovascular No near-syncope/dizziness 05/20/2016 Cardiovascular No syncope 05/20/2016 Respiratory No productive sputum 05/20/2016 Respiratory No chest congestion 05/20/2016 Respiratory No chest tightness 05/20/2016 Respiratory No cough 05/20/2016 Respiratory No dyspnea 05/20/2016 Gastrointestinal No abdominal pain 05/20/2016 Gastrointestinal No constipation 05/20/2016 Gastrointestinal No diarrhea 05/20/2016 Genitourinary/Nephrology No breast complaint 05/20/2016 Genitourinary/Nephrology No dysuria 05/20/2016 Genitourinary/Nephrology No hematuria 05/20/2016 Genitourinary/Nephrology No urinary urgency 05/20/2016 Genitourinary/Nephrology No vaginal discharge 05/20/2016 Musculoskeletal No joint complaint 05/20/2016 Neurologic No alteration of consciousness 05/20/2016 Constitutional No chills 10/08/2015 Constitutional No diaphoresis 10/08/2015 Constitutional No fever 10/08/2015 Eyes No eye discharge 10/08/2015 Eyes No eye erythema 10/08/2015 Eyes No vision change 10/08/2015 Ears/Nose/Throat/Neck nasal allergies 10/08/2015 Ears/Nose/Throat/Neck nasal discharge 10/08/2015 Ears/Nose/Throat/Neck sinus congestion 10/08/2015 Cardiovascular No chest pain/pressure 10/08/2015 Respiratory No productive sputum 10/08/2015 Respiratory No chest congestion 10/08/2015 Respiratory No cough 10/08/2015 Musculoskeletal No joint complaint 10/08/2015 Dermatologic No rash 10/08/2015 Neurologic No alteration of consciousness 10/08/2015 Constitutional recent illness 10/08/2015 Ears/Nose/Throat/Neck postnasal drip 10/08/2015 Ears/Nose/Throat/Neck sore throat 10/08/2015 Cardiovascular No dyspnea 10/08/2015 Neurologic No mental status change 10/08/2015 Constitutional No recent illness 04/25/2015 Constitutional No anorexia 04/25/2015 Constitutional No night sweats 04/25/2015 Constitutional No chills 04/25/2015 Constitutional No diaphoresis 04/25/2015 Constitutional No fatigue 04/25/2015 Constitutional No fever 04/25/2015 Constitutional No malaise 04/25/2015 Constitutional No insomnia 04/25/2015 Constitutional No weight loss 04/25/2015 Constitutional No weight gain 04/25/2015 Eyes No eye discharge 04/25/2015 Eyes No eye erythema 04/25/2015 Eyes No vision change 04/25/2015 Ears/Nose/Throat/Neck dizziness 04/25/2015 Ears/Nose/Throat/Neck headache 04/25/2015 Ears/Nose/Throat/Neck nasal allergies 04/25/2015 Ears/Nose/Throat/Neck No nasal discharge 04/25/2015 Ears/Nose/Throat/Neck No otalgia 04/25/2015 Ears/Nose/Throat/Neck No sinus congestion 04/25/2015 Ears/Nose/Throat/Neck No sore throat 04/25/2015 Cardiovascular No chest pain/pressure 04/25/2015 Cardiovascular No edema 04/25/2015 Respiratory No productive sputum 04/25/2015 Respiratory No chest congestion 04/25/2015 Respiratory No cough 04/25/2015 Gastrointestinal No abdominal pain 04/25/2015 Gastrointestinal No constipation 04/25/2015 Gastrointestinal No diarrhea 04/25/2015 Gastrointestinal nausea 04/25/2015 Gastrointestinal No vomiting 04/25/2015 Genitourinary/Nephrology No dysuria 04/25/2015 Musculoskeletal No joint complaint 04/25/2015 Dermatologic No rash 04/25/2015 Neurologic No alteration of consciousness 04/25/2015 Psychiatric No anxiety 04/25/2015 Endocrine No dry or coarse skin 04/25/2015 Endocrine No hair loss 04/25/2015 Hematologic/Lymphatic No abnormal bleeding and bruising 04/25/2015 Constitutional No recent illness 02/27/2015 Constitutional No fatigue 02/27/2015 Constitutional No fever 02/27/2015 Musculoskeletal stiffness 02/27/2015 Musculoskeletal swelling 02/27/2015 Musculoskeletal joint complaint 02/27/2015 Dermatologic scar 02/27/2015 Dermatologic sores 02/10/2015 Constitutional No recent illness 02/10/2015 Constitutional No anorexia 02/10/2015 Constitutional No night sweats 02/10/2015 Constitutional No chills 02/10/2015 Constitutional No diaphoresis 02/10/2015 Constitutional No fatigue 02/10/2015 Constitutional No fever 02/10/2015 Constitutional No insomnia 02/10/2015 Constitutional No malaise 02/10/2015 Constitutional No weight loss 02/10/2015 Constitutional No weight gain 02/10/2015 Constitutional No recent illness 08/02/2014 Constitutional No anorexia 08/02/2014 Constitutional No night sweats 08/02/2014 Constitutional No chills 08/02/2014 Constitutional No diaphoresis 08/02/2014 Constitutional fatigue 08/02/2014 Constitutional No fever 08/02/2014 Constitutional No insomnia 08/02/2014 Constitutional No malaise 08/02/2014 Constitutional No weight loss 08/02/2014 Constitutional No weight gain 08/02/2014 Constitutional obesity 08/02/2014 Eyes No eye discharge 08/02/2014 Eyes No eye erythema 08/02/2014 Ears/Nose/Throat/Neck No dizziness 08/02/2014 Ears/Nose/Throat/Neck headache 08/02/2014 Cardiovascular No chest pain/pressure 08/02/2014 Respiratory No cough 08/02/2014 Ears/Nose/Throat/Neck otalgia 08/02/2014 Gastrointestinal No abdominal pain 08/02/2014 Gastrointestinal No constipation 08/02/2014 Gastrointestinal No diarrhea 08/02/2014 Genitourinary/Nephrology No dysuria 08/02/2014 Dermatologic No rash 08/02/2014 Musculoskeletal joint complaint 08/02/2014 Neurologic No alteration of consciousness 08/02/2014 Hematologic/Lymphatic No abnormal bleeding and bruising 08/02/2014 Constitutional No fatigue 05/20/2014 Constitutional No fever 05/20/2014 Constitutional No insomnia 05/20/2014 Eyes No eye discharge 05/20/2014 Eyes No eye erythema 05/20/2014 Ears/Nose/Throat/Neck No headache 05/20/2014 Cardiovascular No chest pain/pressure 05/20/2014 Cardiovascular No edema 05/20/2014 Cardiovascular No near-syncope/dizziness 05/20/2014 Cardiovascular No syncope 05/20/2014 Respiratory No productive sputum 05/20/2014 Respiratory No chest congestion 05/20/2014 Respiratory No chest tightness 05/20/2014 Respiratory No cough 05/20/2014 Respiratory No dyspnea 05/20/2014 Gastrointestinal No abdominal pain 05/20/2014 Gastrointestinal No constipation 05/20/2014 Gastrointestinal No diarrhea 05/20/2014 Genitourinary/Nephrology No breast complaint 05/20/2014 Genitourinary/Nephrology No dysuria 05/20/2014 Genitourinary/Nephrology No hematuria 05/20/2014 Genitourinary/Nephrology No urinary urgency 05/20/2014 Genitourinary/Nephrology No vaginal discharge 05/20/2014 Musculoskeletal No joint complaint 05/20/2014 Neurologic No alteration of consciousness 05/20/2014 Physical Exam Exam Name System Name Item Name Status Result Effective Dates Notes Full Exam - Orthopedics Constitutional general appearance Overall: well nourished 06/26/2018 None Full Exam - Orthopedics Constitutional general appearance Overall: well developed 06/26/2018 None Full Exam - Orthopedics Constitutional general appearance Overall: in no acute distress 06/26/2018 None Full Exam - Orthopedics Eyes conjunctiva/eyelids Overall: conjunctiva clear 06/26/2018 None Full Exam - Orthopedics Eyes conjunctiva/eyelids Overall: eyelids normal 06/26/2018 None Full Exam - Orthopedics Ears/Nose/Throat lips/teeth/gingiva Overall: benign lips 06/26/2018 None Full Exam - Orthopedics Ears/Nose/Throat oral cavity/pharynx/larynx Overall: oral mucosa clear 06/26/2018 None Full Exam - Orthopedics Respiratory respiratory effort/rhythm Overall: no retractions 06/26/2018 None Full Exam - Orthopedics Respiratory respiratory effort/rhythm Overall: normal rate 06/26/2018 None Full Exam - Orthopedics Psychiatric orientation/consciousness Overall: oriented to person, place and time 06/26/2018 None Full Exam - Orthopedics Psychiatric mood and affect Overall: normal mood and affect 06/26/2018 None Full Exam - Orthopedics Psychiatric appearance Overall: well-groomed, good eye contact 06/26/2018 None Full Exam - Orthopedics MS: head/neck insp & palp - H/N Overall: head atraumatic 06/26/2018 None Full Exam - Orthopedics MS: spine/rib/pelvis insp & palp - S/R/P Thoracic/lumbar muscles palpation: tender right parathoracic 06/26/2018 None Full Exam - Orthopedics MS: head/neck insp & palp - H/N Cervical muscles palpation: tender right paracervical 06/26/2018 None Full Exam - ENT Constitutional general [...] - ENT Respiratory inspection Overall: normal rate 02/09/2018 None Full Exam - ENT Respiratory inspection Overall: no retractions 02/09/2018 None Full Exam - ENT Face and Head palpation Overall: no sinus tenderness 02/09/2018 None Full Exam - ENT Ears/Nose/Throat otoscopic exam Overall: external auditory canals normal 02/09/2018 None Full Exam - ENT Ears/Nose/Throat otoscopic exam Left tympanic membrane: air-fluid level 02/09/2018 None Full [...] None Full Exam - General 1994 Eyes conjunctiva/eyelids Overall: conjunctiva clear 04/22/2017 None Full Exam - General 1994 Eyes conjunctiva/eyelids Overall: cornea clear 04/22/2017 None Full Exam - General 1994 Eyes conjunctiva/eyelids Overall: eyelids normal 04/22/2017 None Full Exam [...] None Full Exam - General 1994 Eyes conjunctiva/eyelids Overall: conjunctiva clear 11/18/2016 None Full Exam - General 1994 Eyes conjunctiva/eyelids Overall: cornea clear 11/18/2016 None Full Exam - General 1994 Eyes conjunctiva/eyelids Overall: eyelids normal 11/18/2016 None Full Exam [...] clear 11/18/2016 None Full Exam - General 1995 Ears/Nose/Throat otoscopic exam Tympanic membrane: air-fluid level 11/18/2016 None Full Exam - Dermatology Constitutional general appearance Overall: well nourished 10/18/2016 None Full Exam - Dermatology Constitutional general appearance Overall: well developed 10/18/2016 None Full Exam - Dermatology Constitutional general appearance Overall: in no acute distress 10/18/2016 None Full Exam - Dermatology Eyes conjunctiva/eyelids Overall: clear conjunctiva bilaterally 10/18/2016 None Full Exam - Dermatology Eyes conjunctiva/eyelids Overall: normal eyelids 10/18/2016 None Full Exam [...] None Full Exam - General 1994 Eyes conjunctiva/eyelids Overall: conjunctiva clear 10/08/2015 None Full Exam - General 1994 Eyes conjunctiva/eyelids Overall: cornea clear 10/08/2015 None Full Exam - General 1994 Eyes conjunctiva/eyelids Overall: eyelids normal 10/08/2015 None Full Exam [...] General 1994 Ears/Nose/Throat otoscopic exam Tympanic membrane: air-fluid level 10/08/2015 None Full Exam - General [...] None Full Exam - General 1994 Eyes conjunctiva/eyelids Overall: conjunctiva clear 04/25/2015 None Full Exam - General 1994 Eyes conjunctiva/eyelids Overall: cornea clear 04/25/2015 None Full Exam - General 1994 Eyes conjunctiva/eyelids Overall: eyelids normal 04/25/2015 None Full Exam [...] None Full Exam - General 1994 Eyes conjunctiva/eyelids Overall: conjunctiva clear 08/02/2014 None Full Exam - General 1994 Eyes conjunctiva/eyelids Overall: eyelids normal 08/02/2014 None Full Exam - General 1994 Eyes conjunctiva/eyelids Overall: cornea clear 08/02/2014 None Full Exam - General 1994 Eyes pupils and irises Overall: pupils equal, round, reactive to light and accomodation 08/02/2014 None Full Exam - General 1994 Ears/Nose/Throat otoscopic exam Tympanic membrane: air-fluid level 08/02/2014 None Full Exam - Genitourinary/Female [...] Date TRIAMCINOLONE ACET INJ NOS CPT-4: J3301 06/26/2018 INJ TRIGGER POINT 1/2 MUSCL CPT-4: 83257 06/26/2018 TRIAMCINOLONE ACET INJ NOS CPT-4: J3301 10/08/2015 ROUTINE VENIPUNCTURE CPT- 4: 59483 08/02/2014 CBC (COMPLETE CBC W/AUTO DIFF WBC) CPT-4: 00095 08/02/2014 TSH (ASSAY THYROID STIM HORMONE) CPT-4: 49824 08/02/2014 Vital Signs Date Vital 06/26/2018 Blood Pressure 1: 120/82 Code: 8480-6 BMI: 38.8 Code: 54954-0 Heart Rate 1: 65 bpm Height: 5'9" SpO2: 98% Temperature: 36.6 (C) / 97.9 (F) Weight: 263 lbs 02/09/2018 Blood Pressure 1: 128/80 Code: 8480-6 BMI: 37.4 Code: 72700-0 Heart Rate 1: 86 bpm Height: 5'9" SpO2: 98% Temperature: 36.3 (C) / 97.3 (F) Weight: 253 lbs 04/22/2017 Blood Pressure 1: 126/74 Code: 8480-6 BMI: 38.4 Code: 86541-1 Heart Rate 1: 65 bpm Height: 5'9" SpO2: 98% Weight: 260 lbs 11/18/2016 Blood Pressure 1: 132/90 Code: 8480-6 BMI: 38.2 Code: 36370-8 Heart Rate 1: 71 bpm Height: 5'9" SpO2: 98% Temperature: 36.9 (C) / 98.5 (F) Weight: 259 lbs 10/18/2016 Blood Pressure 1: 122/80 Code: 8480-6 BMI: 38.1 Code: 78834-2 Heart Rate 1: 64 bpm Height: 5'9" SpO2: 98% Temperature: 37.1 (C) / 98.7 (F) Weight: 258 lbs 05/20/2016 Blood Pressure 1: 120/68 Code: 8480-6 BMI: 40.3 Code: 43563-8 Heart Rate 1: 66 bpm Height: 5'9" SpO2: 98% Weight: 273 lbs 10/08/2015 Blood Pressure 1: 122/68 Code: 8480-6 BMI: 41.3 Code: 75431-3 Heart Rate 1: 74 bpm Height: 5'9" SpO2: 98% Temperature: 36.9 (C) / 98.4 (F) Weight: 280 lbs 04/25/2015 Blood Pressure 1: 124/78 Code: 8480-6 BMI: 40.5 Code: 57701-1 Heart Rate 1: 76 bpm Height: 5'9" SpO2: 98% Weight: 274 lbs 02/27/2015 Blood Pressure 1: 128/82 Code: 8480-6 BMI: 40.8 Code: 41817-5 Heart Rate 1: 82 bpm Height: 5'9" SpO2: 99% Weight: 276 lbs 02/10/2015 Blood Pressure 1: 128/88 Code: 8480-6 BMI: 41.2 Code: 11025-1 Heart Rate 1: 94 bpm Height: 5'9" SpO2: 95% Weight: 279 lbs 08/02/2014 Blood Pressure 1: 118/80 Code: 8480-6 BMI: 39.9 Code: 21247-8 Heart Rate 1: 72 bpm Height: 5'9" SpO2: 99% Weight: 270 lbs 05/20/2014 Blood Pressure 1: 122/88 Code: 8480-6 BMI: 39.6 Code: 64569-0 Heart Rate 1: 72 bpm Height: 5'9" Weight: 268 lbs Functional Status No Functional Status data History of Present Illness Symptom Name Status Result Effective Date Notes Quality aching 06/26/2018 None Quality constant 06/26/2018 None Quality burning 06/26/2018 None Quality sharp pain 06/26/2018 None Onset and Resolution sudden in onset 06/26/2018 None Onset of Symptom 4 days ago 06/26/2018 None Limitation on Activities moderately limits activities 06/26/2018 None Location in the throat 02/09/2018 None Quality dry 02/09/2018 None Onset of Symptom 3 days ago [...] None abnormal test results Test Performed on 10-18-2016 11/18/2016 None abnormal test results Repeated Abnormal [...] Resolution ongoing 11/18/2016 None fever Quality acute 11/18/2016 None fever Onset of Symptom ~1 months [...] data Encounters Encounter Performer Location Codes Date 54036 EST. PATIENT, LEVEL III Diagnosis: Other conditions associated with Lyme disease[ICD10: A69.29] Diagnosis: Pain in thoracic spine[ICD10: M54.6] Diagnosis: Muscle spasm of back[ICD10: M62.830] [facility] CPT- 4: 60909 06/26/2018 ([id number]) 78560 EST. PATIENT, LEVEL III Diagnosis: Acute laryngopharyngitis[ICD10: J06.0] Diagnosis: Cough[ICD10: R05] Diagnosis: Acute upper respiratory infection, unspecified[ICD10: J06.9] [facility] CPT-4: 97739 02/09/2018 ([id number]) PREV VISIT EST AGE 18-39 Diagnosis: Encounter for general adult medical examination with abnormal findings[ICD10: Z00.01] Diagnosis: Right upper quadrant pain[ICD10: R10.11] Diagnosis: Gastro-esophageal reflux disease without esophagitis[ICD10: K21.9] [facility] CPT-4: 41156 04/22/2017 ([id number]) 92443 EST. 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 PATIENT, LEVEL III Diagnosis: Rash and other nonspecific skin eruption[ICD10: R21] Diagnosis: Bitten or stung by nonvenomous insect and other nonvenomous arthropods, initial encounter[ICD10: W57.XXXA] Diagnosis: Gastro-esophageal reflux disease without esophagitis[ICD10: K21.9] Mila Winn MD, [facility] CPT-4: 89911 10/18/2016 ([id number]) Miscellaneous no charge Diagnosis: Dysuria[ICD10: R30.0] Mila Winn MD, [facility] CPT-4: 71248 07/08/2016 ([id number]) PREV VISIT EST AGE 18-39 Diagnosis: Encounter for general adult medical examination without abnormal findings[ICD10: Z00.00] Diagnosis: Other obesity due to excess calories[ICD10: E66.09] Gi Winn MD, [facility] CPT-4: 17685 05/20/2016 07656 EST. PATIENT, LEVEL IV Diagnosis: Other acute sinusitis[ICD10: J01.80] Diagnosis: Other allergic rhinitis[ICD10: J30.89] Diagnosis: Acute laryngopharyngitis[ICD10: J06.0] Mila Winn MD, [facility] CPT- 4: 08177 10/08/2015 ([id number]) 93340 EST. PATIENT, LEVEL III Diagnosis: Elevated blood-pressure reading, without diagnosis of hypertension[ICD10: R03.0] Diagnosis: Irregular menstruation, unspecified[ICD10: N92.6] Gi Winn MD, [facility] CPT-4: 31395 04/25/2015 ([id number]) 24508 EST. PATIENT, LEVEL III Diagnosis: Pain in right ankle and joints of right foot[ICD10: M25.571] Diagnosis: Ganglion, right ankle and foot[ICD10: M67.471] Angelika Winn MD, [facility] CPT-4: 65107 02/27/2015 46769 EST. PATIENT, LEVEL II Diagnosis: Cellulitis of abdominal wall[ICD10: L03.311] Gi Winn MD, [facility] CPT-4: 88693 02/10/2015 ([id number]) 54522 EST. PATIENT, LEVEL III Diagnosis: Elevated blood pressure[ICD9: 796.2] Diagnosis: Neck pain[ICD9: 723.1] Diagnosis: Missed period[ICD9: 626.4] Diagnosis: Fatigue[ICD9: 780.79] [facility] CPT-4: 93817 08/02/2014 ([id number]) PREV VISIT NEW AGE 18-39 Diagnosis: PREVENTIVE PHYSICAL EXAM[ICD9: V70.0] [facility] CPT-4: 29738 05/20/2014 Plan of Care Planned Activity Notes Codes Status Date Visit Plan: Back pain- the patient was instructed in appropriate posture, need for weight loss to alleviate abdominal obesity that is worsening the patient's back pain.. The pt is to use prn antiinflammatories to manage acute pain. The patient is to call the office if the pain is worsening or does not improve. Lymes flare up - will send RX - pt is to notify clinic if symptoms do not improve, if they worsen, or with any changes, questions, or concerns. Trigger Points - Injected trigger points today, pt given post-injection instructions, signs and symptoms for which to call the office. Pt to use heat to the muscles today, and take an anti-inflammatory today unless otherwise contraindicated by renal function or other disease process. 06/26/2018 Appointment: Mila Avila WPtel: [address] [place], [place] [phone] (30 min) Complex 06/26/2018 Patient Education: Patient Medication Summary Completed 06/26/2018 Appointment: Mila Avila WPtel: [address] [place], [place] [phone] (30 min) Complex 05/04/2018 Visit Plan: URI-sore throat -cough-flu negative -pt advised to increase fluids, vitamin C. Discussed natural and expected course of this diagnosis and need to alert me if symptoms do not follow expected course, or if any worse. RX sent to patient's pharmacy. 02/09/2018 [facility]ment[facility] [phone] [phone] [place] (15 min) Moderate 02/09/2018 Patient Education: Patient Medication Summary Completed 02/09/2018 Appointment: Gi Jones WPtel: [phone] [phone] [place] (15 min) Moderate 05/27/2017 Visit Plan: [...] not improving. 04/22/2017 Appointment: [facility] [place] [place] ([facility] min) Complex 04/22/2017 Patient [...] hormone levels. 11/18/2016 [facility] [phone] [facility] [place] (15 min) Moderate 11/18/2016 Patient Education: Patient [...] improving. 10/18/2016 Appointment: Mila Avila WPtel: [phone] [phone] (15 min) Moderate 10/18/2016 Patient Education: Patient [...] renal functioning. 05/20/2016 Appointment: Gi Jones WPtel: [phone] [phone] (30 min) Complex 05/20/2016 Patient Education: Patient Medication Summary Completed 05/20/2016 Patient Education: Obesity Completed 05/20/2016 Care Plan: BMI Above normal followup SELF-MGMT EDUC & TRAIN 1 PT Pending 05/20/2016 Visit Plan: Sinusitis - Pt has acute [...] patient's pharmacy. 10/08/2015 Appointment: Gi Jones WPtel: [phone] [phone] (15 min) Moderate 10/08/2015 Patient Education: Patient [...] salt in the diet. Late period-check Hcg 04/25/2015 Appointment: (15 min) Moderate 04/25/2015 [...] Tourette's syndrome. 05/20/2014 Appointment: Angelika Winn WPtel[facility] [place] [facility] 05/20/2014 Patient Education: Patient [...] any worse. RX sent to patient's pharmacy. flexeril - 5-10mg TID PRN muscle spasms aleve - 2 pills twice a day x 5 days get a massage start the doxycycline Ice to the right back area Deplin once a day - consider zoloft, prozac, or lexapro if needed . Back pain- the patient was instructed in appropriate posture, need for weight loss to alleviate abdominal obesity that is worsening the patient's back pain.. The pt is to use prn antiinflammatories to manage acute pain. The patient is to call the office if the pain is worsening or does not improve. Lymes flare up - will send RX - pt is to notify clinic if symptoms do not improve, if they worsen, or with any changes, questions, or concerns. Trigger Points - Injected trigger points today, pt given post-injection instructions, signs and symptoms for which to call the office. Pt to use heat to the muscles today, and take an anti-inflammatory today unless otherwise contraindicated by renal function or other disease process. . Lyme disease, Arjun Mnt Spotted Fever [...]
--- OUTSIDE RECORDS SUMMARY | 2018-08-25 19:01 | XMS REPORT | CCD ---
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 [employer] [id number] 2018 Unknown Family history Sister Diagnosis Age At Onset No Known Diseases N/A Mother Diagnosis Age At Onset Arthritis Unknown Hyperlipidemia Unknown Depression Unknown Father Diagnosis Age At Onset defect Unknown Diabetes mellitus Type 2 Unknown Hyperlipidemia Unknown Hypertension Unknown Social History Social History Element Codes Description Effective Dates Marital status Unknown Jennifer 04/25/[address]: 6244723 Former smoker 02/10/[address]: 554037031 Never drinks alcohol 02/10/2015 Allergies, Adverse Reactions, [...] Fill Instructions cyclobenzaprine 5 mg tablet RxNorm: 867204 1-2 Tablet(s) PO TID as needed muscle spasms 06/26/2018 07/05/2018 Active doxycycline hyclate 100 mg capsule RxNorm: 2948208 1 Capsule(s) PO BID 06/26/2018 07/25/2018 Active stop vitamin while on doxy Kenalog 40 mg/mL suspension for injection RxNorm: 5034972 1 Milliliter(s) Inj 06/26/2018 06/26/2018 Inactive prednisone 20 mg tablet RxNorm: 470855 2 Tablet(s) PO daily 02/09/2018 02/11/2018 Inactive Zithromax Z-Juni 250 mg tablet RxNorm: 375932 1 Tablet(s) PO UD 02/09/2018 02/13/2018 Inactive promethazine 25 mg tablet RxNorm: 841547 1 Tablet(s) PO TID as needed nausea 02/08/2018 02/12/2018 Inactive promethazine 25 mg tablet RxNorm: 748191 1 Tablet(s) PO TID as needed nausea 02/08/2018 02/07/2018 Inactive omeprazole 20 mg capsule,delayed release RxNorm: 765746 1 Capsule(s) PO BID 10/14/2017 01/11/2018 Inactive meclizine 25 mg tablet RxNorm: 175498 1 Tablet(s) PO TID as needed Dizziness 05/02/2017 05/01/2017 Inactive meclizine 25 mg tablet RxNorm: 734770 1 Tablet(s) PO TID as needed Dizziness 05/02/2017 05/31/2017 Inactive Prilosec OTC 20 mg tablet,delayed release RxNorm: 988357 1 Tablet(s) PO BID 05/02/2017 05/01/2017 Inactive Prilosec OTC 20 mg tablet,delayed release RxNorm: 205545 1 Tablet(s) PO BID 05/02/2017 05/31/2017 Inactive dapsone 100 mg tablet RxNorm: 080196 1 Tablet(s) PO daily 11/18/2016 11/27/2016 Inactive doxycycline hyclate 100 mg capsule RxNorm: 8061045 1 Capsule(s) PO BID 10/20/2016 11/18/2016 Inactive stop vitamin while on doxy omeprazole 20 mg capsule,delayed release RxNorm: 959499 1 Capsule(s) PO daily 10/18/2016 10/31/2016 Inactive doxycycline hyclate 100 mg capsule RxNorm: 4613053 1 Capsule(s) PO BID 10/18/2016 10/19/2016 Inactive stop vitamin while on doxy Saxenda 3 mg/0.5 mL (18 mg/3 mL) subcutaneous pen injector RxNorm: 9570673 3 Milliliter(s) SQ daily 05/21/2016 10/17/2016 Inactive Saxenda 3 mg/0.5 mL (18 mg/3 mL) subcutaneous pen injector RxNorm: 1438189 Milliliter(s) SQ 05/20/2016 05/20/2016 Inactive Kenalog 40 mg/mL suspension for injection RxNorm: 6491296 Milliliter(s) Inj 10/08/2015 10/08/2015 Inactive Zithromax Z-Juni 250 mg tablet RxNorm: 353578 1 Tablet(s) PO UD 10/08/2015 05/19/2016 Inactive labetalol 100 mg tablet RxNorm: 535405 1 Tablet(s) PO BID 04/29/2015 04/28/2015 Inactive labetalol 100 mg tablet RxNorm: 565291 1 Tablet(s) PO BID 04/29/2015 10/07/2015 Inactive Cipro 500 mg tablet RxNorm: 103083 1 Tablet(s) PO BID 04/26/2015 05/19/2016 Inactive Cipro 500 mg tablet RxNorm: 914018 1 Tablet(s) PO BID 04/26/2015 04/25/2015 Inactive Bactrim DS 800 mg-160 mg tablet RxNorm: 750812 1 Tablet(s) PO BID 02/10/2015 02/16/2015 Inactive Vitamin C 500 mg tablet RxNorm: 102448 1 Tablet(s) PO daily No Start Date Active metformin 500 mg tablet RxNorm: 849600 1 Tablet(s) PO BID No Start Date 06/25/2018 Inactive + DHA oral RxNorm: oral No Start Date 02/08/2018 Inactive multivitamin chewable tablet RxNorm: 1 Tablet(s) PO daily No Start Date 11/17/2016 Inactive Medication Administered Medication Codes Instructions Start Date Status Kenalog 40 mg/mL suspension for injection RxNorm: 5874980 1Milliliter 06/26/2018 Active Kenalog 40 mg/mL suspension for injection RxNorm: 0212001 Milliliter 10/08/2015 No longer Active Immunizations No [...] Item Code Result Date C A/B FLU 2114360 Influenza A Scr Negative 02/09/2018 C A/B FLU 4108772 Influenza B Scr Negative 02/09/2018 C A/B FLU 9476752 Influenza Intrp B AG:PRID:PT:NOSE:NOM:IF See Footnote 02/09/2018 Arjun Mtn Spot'D Fev Igg 036213 RMSF, IGG- TITER IFA 1:128 10/22/2016 Ehrlichia Chaffeensis Antibody Igg 832862 EHRLICHIA CHAFFEENSIS IGG <1:64 10/22/2016 [place] Spotted Fever Igg/Igm 744715 ARJUN MT SPOTTED FEVER IGM EIA . 10/22/2016 [place] Spotted Fever Igg/Igm 986032 RMSF, IGM 0.32 index 10/22/2016 [place] Spotted Fever Igg/Igm 648025 ARJUN MT SPOTTED FEVER IGG EIA FLEX . 10/22/2016 [place] Spotted Fever Igg/Igm 174726 RMSF, IGG SCREEN-FLEX Positive 10/22/2016 Ehrlichia Chaffeensis Antibody Igm 181855 EHRLICHIA CHAFFEENSIS IGM < 1:16 10/22/2016 [place] Western Blot Serum 791338 B. BURGDORFERI, IGG WB Negative 10/21/2016 [place] Western Blot Serum 613414 B. BURGDORFERI, IGM WB Negative 10/21/2016 [place] Disease Total Antibodies With Western Blot Reflex [id number] B. BURGDORFERI, IGG/IGM 1.27 LI 10/20/2016 [place] Disease Total Antibodies With Western Blot Reflex [id number] 10/20/2016 Cbc With Differential Ord2 WBC 7.30 [...] 28.9 pg 10/18/2016 Cbc With Differential Ord2 [place]% 7.1 % 10/18/2016 Cbc With Differential Ord2 [...] 2.13 K/ul 10/18/2016 Cbc With Differential Ord2 [place] ABS# 0.5 K/ul 10/18/2016 Cbc With Differential Ord2 Eos ABS# 0.2 K/ul 10/18/2016 Cbc With Differential Ord2 Baso ABS# 0.0 K/ul 10/18/2016 Tsh Ord6 hTSH II 2.02 uIU/mL 10/18/2016 Comp Metabolic Rif934 NA 139 mEq/L 10/18/2016 Comp Metabolic Axa213 K 4.2 mEq/L 10/18/2016 Comp Metabolic Yni493 CL 103 mEq/L 10/18/2016 Comp Metabolic Brn156 CO2 26.0 mEq/L 10/18/2016 Comp Metabolic Uyk464 ANION GAP 14 10/18/2016 Comp Metabolic Xpm850 GLUCOSE 84 mg/dL 10/18/2016 Comp Metabolic Zjj911 Creat 0.5 mg/dL 10/18/2016 Comp Metabolic Djw583 eGFR 158 ml/min/1.73m2 10/18/2016 Comp Metabolic Pnx446 BUN 10 mg/dL 10/18/2016 Comp Metabolic Fzr410 B/C Ratio 20.4 Ratio 10/18/2016 Comp Metabolic Kts495 CALCIUM 9.3 mg/dL 10/18/2016 Comp Metabolic Gno104 ALK PHOS 67 U/L 10/18/2016 Comp Metabolic Pdu480 AST(SGOT) 11 U/L 10/18/2016 Comp Metabolic Fbo909 ALT(SGPT) 10 U/L 10/18/2016 Comp Metabolic Jle565 BILI T 0.4 mg/dL 10/18/2016 Comp Metabolic Vwp741 ALBUMIN 4.1 g/dL 10/18/2016 Comp Metabolic Sfe779 TPRO 6.7 g/dL 10/18/2016 Comp Metabolic Rkd936 GLOB 2.6 g/dL 10/18/2016 Comp Metabolic Qvk987 A/G Ratio 1.6 Ratio 10/18/2016 Comp Metabolic Zhg908 Osmo 276 mOsmo 10/18/2016 Lipid Ord30 CHOL 185 mg/dL 06/06/2015 Lipid Ord30 HDL 41.0 mg/dl 06/06/2015 Lipid Ord30 TRIG 108 mg/dL 06/06/2015 Lipid Ord30 LDL 122 mg/dL 06/06/2015 Lipid Ord30 C/HDL 4.5 Ratio 06/06/2015 Tsh Ord6 hTSH II 2.10 uIU/mL 04/28/2015 [facility] 04/25/2015 Cbc With Differential Ord2 [...] 27.7 pg 04/25/2015 Cbc With Differential Ord2 [place]% 6.1 % 04/25/2015 Cbc With Differential Ord2 [...] 1.95 K/ul 04/25/2015 Cbc With Differential Ord2 [place] ABS# 0.6 K/ul 04/25/2015 Cbc With Differential Ord2 Eos ABS# 0.2 K/ul 04/25/2015 Cbc With Differential Ord2 Baso ABS# 0.0 K/ul 04/25/2015 Cbc With Differential Ord2 New Analyzer Notice Please note new ref ranges starting 03-05-2015 due to implemntation of new five part differential hematolgy analyzer. 04/25/2015 Comp Metabolic Kby737 NA 135 mEq/L 04/25/2015 Comp Metabolic Jzr972 K 4.0 mEq/L 04/25/2015 Comp Metabolic Lpp170 CL 104 mEq/L 04/25/2015 Comp Metabolic Ogc308 CO2 25.0 mEq/L 04/25/2015 Comp Metabolic Ord354 ANION GAP 10 04/25/2015 Comp Metabolic Oku787 GLUCOSE 88 mg/dL 04/25/2015 Comp Metabolic Evc686 Creat 0.5 mg/dL 04/25/2015 Comp Metabolic Dtg631 eGFR 167 ml/min/1.73m2 04/25/2015 Comp Metabolic Rph007 BUN 9 mg/dL 04/25/2015 Comp Metabolic Gli377 B/C Ratio 19.1 Ratio 04/25/2015 Comp Metabolic Bci615 CALCIUM 9.1 mg/dL 04/25/2015 Comp Metabolic Lqv336 ALK PHOS 61 U/L 04/25/2015 Comp Metabolic Jim483 AST(SGOT) 13 U/L 04/25/2015 Comp Metabolic Ike396 ALT(SGPT) 12 U/L 04/25/2015 Comp Metabolic Dkc899 BILI T 0.5 mg/dL 04/25/2015 Comp Metabolic Vps540 ALBUMIN 4.3 g/dL 04/25/2015 Comp Metabolic Qfq563 TPRO 7.0 g/dL 04/25/2015 Comp Metabolic Itz491 GLOB 2.7 g/dL 04/25/2015 Comp Metabolic Vqk935 A/G Ratio 1.6 Ratio 04/25/2015 Comp Metabolic Sos950 Osmo 268 mOsmo 04/25/2015 HCG QUANT 9378605 HCG QUANT FOOTNOTE MIU/ML 08/05/2014 TSH 2822123 TSH 2.27 uIU/ML 08/05/2014 CBC 4876131 WBC 8.6 10e9/L 08/02/2014 CBC 0040058 RBC 4.49 10e12/L 08/02/2014 CBC 8333237 HGB 12.7 g/dL 08/02/2014 CBC 3100122 HCT DET 38.1 % 08/02/2014 CBC 2678743 MCV 84.9 fL 08/02/2014 CBC 5535061 MCH 28.3 pg 08/02/2014 CBC 0097639 MCHC 33.3 g/dL 08/02/2014 CBC 4904107 PLT 276 10e9/L 08/02/2014 CBC 3551878 MPV 10.4 fL 08/02/2014 CBC 1913417 FINN % 67.0 % 08/02/2014 CBC 2450315 LY % 24.3 % 08/02/2014 CBC 1547964 MON % 6.5 % 08/02/2014 CBC 1992409 EOS % 2.0 % 08/02/2014 CBC 1943968 BASO % 0.2 % 08/02/2014 CBC 7402476 RDW 14.2 % 08/02/2014 CBC 8007455 ABS FINN 5.76 10e9/L 08/02/2014 CBC 5622323 ABS LYMPH 2.09 10e9/L 08/02/2014 CBC 7090793 ABS MONO 0.56 10e9/L 08/02/2014 CBC 9664302 ABS EOS 0.17 10e9/L 08/02/2014 CBC 3118169 ABS BASO 0.02 10e9/L 08/02/2014 CBC 8388606 RDW-SD 43.2 fL 08/02/2014 Review of Systems [...] accomodation 11/18/2016 None Full Exam - General 1995 Ears/Nose/Throat lips/teeth/gingiva Overall: benign lips 11/18/2016 None [...] 06/26/2018 INJ TRIGGER POINT 1/2 MUSCL CPT-4: 57787 06/26/2018 TRIAMCINOLONE ACET INJ NOS CPT-4: J3301 10/08/2015 ROUTINE VENIPUNCTURE CPT- 4: 96167 08/02/2014 CBC (COMPLETE CBC W/AUTO DIFF WBC) CPT-4: 40786 08/02/2014 TSH (ASSAY THYROID STIM HORMONE) CPT-4: 06516 08/02/2014 Vital Signs Date Vital 06/26/2018 Blood Pressure 1: 120/82 Code: 8480-6 BMI: 38.8 Code: 13406-4 Heart Rate 1: 65 bpm Height: 5'9" SpO2: 98% Temperature: 36.6 (C) / 97.9 (F) Weight: 263 lbs 02/09/2018 Blood Pressure 1: 128/80 Code: 8480-6 BMI: 37.4 Code: 30227-0 Heart Rate 1: 86 bpm Height: 5'9" SpO2: 98% Temperature: 36.3 (C) / 97.3 (F) Weight: 253 lbs 04/22/2017 Blood Pressure 1: 126/74 Code: 8480-6 BMI: 38.4 Code: 96134-0 Heart Rate 1: 65 bpm Height: 5'9" SpO2: 98% Weight: 260 lbs 11/18/2016 Blood Pressure 1: 132/90 Code: 8480-6 BMI: 38.2 Code: 06399-6 Heart Rate 1: 71 bpm Height: 5'9" SpO2: 98% Temperature: 36.9 (C) / 98.5 (F) Weight: 259 lbs 10/18/2016 Blood Pressure 1: 122/80 Code: 8480-6 BMI: 38.1 Code: 69858-3 Heart Rate 1: 64 bpm Height: 5'9" SpO2: 98% Temperature: 37.1 (C) / 98.7 (F) Weight: 258 lbs 05/20/2016 Blood Pressure 1: 120/68 Code: 8480-6 BMI: 40.3 Code: 56814-6 Heart Rate 1: 66 bpm Height: 5'9" SpO2: 98% Weight: 273 lbs 10/08/2015 Blood Pressure 1: 122/68 Code: 8480-6 BMI: 41.3 Code: 93197-4 Heart Rate 1: 74 bpm Height: 5'9" SpO2: 98% Temperature: 36.9 (C) / 98.4 (F) Weight: 280 lbs 04/25/2015 Blood Pressure 1: 124/78 Code: 8480-6 BMI: 40.5 Code: 95387-6 Heart Rate 1: 76 bpm Height: 5'9" SpO2: 98% Weight: 274 lbs 02/27/2015 Blood Pressure 1: 128/82 Code: 8480-6 BMI: 40.8 Code: 16677-4 Heart Rate 1: 82 bpm Height: 5'9" SpO2: 99% Weight: 276 lbs 02/10/2015 Blood Pressure 1: 128/88 Code: 8480-6 BMI: 41.2 Code: 69801-2 Heart Rate 1: 94 bpm Height: 5'9" SpO2: 95% Weight: 279 lbs 08/02/2014 Blood Pressure 1: 118/80 Code: 8480-6 BMI: 39.9 Code: 19094-7 Heart Rate 1: 72 bpm Height: 5'9" SpO2: 99% Weight: 270 lbs 05/20/2014 Blood Pressure 1: 122/88 Code: 8480-6 BMI: 39.6 Code: 61608-7 Heart Rate 1: 72 bpm Height: 5'9" [...] data Encounters Encounter Performer Location Codes Date 72294 EST. PATIENT, LEVEL III Diagnosis: Other conditions associated with Lyme disease[ICD10: A69.29] Diagnosis: Pain in thoracic spine[ICD10: M54.6] Diagnosis: Muscle spasm of back[ICD10: M62.830] [facility] CPT- 4: 52710 06/26/2018 ([id number]) 79883 EST. PATIENT, LEVEL III Diagnosis: Acute laryngopharyngitis[ICD10: J06.0] Diagnosis: Cough[ICD10: R05] Diagnosis: Acute upper respiratory infection, unspecified[ICD10: J06.9] [facility] CPT-4: 58378 02/09/2018 ([id number]) PREV VISIT EST AGE 18-39 Diagnosis: Encounter for general adult medical examination with abnormal findings[ICD10: Z00.01] Diagnosis: Right upper quadrant pain[ICD10: R10.11] Diagnosis: Gastro-esophageal reflux disease without esophagitis[ICD10: K21.9] [facility] CPT-4: 09796 04/22/2017 ([id number]) 17358 EST. 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 PATIENT, LEVEL III Diagnosis: Rash and other nonspecific skin eruption[ICD10: R21] Diagnosis: Bitten or stung by nonvenomous insect and other nonvenomous arthropods, initial encounter[ICD10: W57.XXXA] Diagnosis: Gastro-esophageal reflux disease without esophagitis[ICD10: K21.9] Mila Winn MD, [facility] CPT-4: 20378 10/18/2016 ([id number]) Miscellaneous no charge Diagnosis: Dysuria[ICD10: R30.0] Mila Winn MD, [facility] CPT-4: 73337 07/08/2016 ([id number]) PREV VISIT EST AGE 18-39 Diagnosis: Encounter for general adult medical examination without abnormal findings[ICD10: Z00.00] Diagnosis: Other obesity due to excess calories[ICD10: E66.09] Gi Winn MD, [facility] CPT-4: 82730 05/20/2016 [id number] EST. PATIENT, LEVEL IV Diagnosis: Other acute sinusitis[ICD10: J01.80] Diagnosis: Other allergic rhinitis[ICD10: J30.89] Diagnosis: Acute laryngopharyngitis[ICD10: J06.0] Mila Winn MD, [facility] CPT- 4: 06652 10/08/2015 ([id number]) 31695 EST. PATIENT, LEVEL III Diagnosis: Elevated blood-pressure reading, without diagnosis of hypertension[ICD10: R03.0] Diagnosis: Irregular menstruation, unspecified[ICD10: N92.6] Gi Winn MD, [facility] CPT-4: 19817 04/25/2015 ([id number]) 27203 EST. PATIENT, LEVEL III Diagnosis: Pain in right ankle and joints of right foot[ICD10: M25.571] Diagnosis: Ganglion, right ankle and foot[ICD10: M67.471] Angelika Winn MD, [facility] CPT-4: 79672 02/27/2015 [id number] EST. PATIENT, LEVEL II Diagnosis: Cellulitis of abdominal wall[ICD10: L03.311] [facility] CPT-4: 73566 02/10/2015 ([id number]) 29491 EST. PATIENT, LEVEL III Diagnosis: Elevated blood pressure[ICD9: 796.2] Diagnosis: Neck pain[ICD9: 723.1] Diagnosis: Missed period[ICD9: 626.4] Diagnosis: Fatigue[ICD9: 780.79] [facility] CPT-4: 08932 08/02/2014 ([id number]) PREV VISIT NEW AGE 18-39 Diagnosis: PREVENTIVE PHYSICAL EXAM[ICD9: V70.0] [facility] CPT-4: 78095 05/20/2014 Plan of Care Planned Activity Notes [...] renal function or other disease process. 06/26/2018 Patient Education: Patient Medication Summary Completed 06/26/2018 Appointment: [facility] [place] ([facility] Complex 05/04/2018 Visit Plan: URI-sore throat -cough-flu negative -pt advised to increase fluids, vitamin C. Discussed natural and expected course of this diagnosis and need to alert me if symptoms do not follow expected course, or if any worse. RX sent to patient's pharmacy. 02/09/2018 App[facility]ment[facility] [phone] [phone] [place] (15 min) Moderate 02/09/2018 Patient Education: Patient Medication Summary Completed 02/09/2018 [facility]ment[facility] [phone] [phone] [place] (15 min) Moderate 05/27/2017 Visit [...] not improving. 04/22/2017 Appointment: [facility] [phone] [facility] [place] ([facility] min) Complex 04/22/2017 Patient [...] hormone levels. 11/18/2016 [facility] [phone] [facility] [place] ([facility] min) Moderate 11/18/2016 Patient Education: [...] not improving. 10/18/2016 Appointment: Mila Avila WPtel: [facility] (15 min) Moderate 10/18/2016 Patient Education: [...] renal functioning. 05/20/2016 Appointment: Gi Jones WPtel: [phone] (30 min) Complex 05/20/2016 Patient Education: [...] patient's pharmacy. 10/08/2015 Appointment: Gi Jones WPtel: [phone] (15 min) Moderate 10/08/2015 Patient Education: Patient [...] Tourette's syndrome. 05/20/2014 App[facility]ment: [facility] [phone] [facility] [place] New Patient 05/20/2014 Patient Education: Patient Medication [...]
--- OUTSIDE RECORDS SUMMARY | 2018-08-25 19:02 | XMS REPORT | CCD ---
Author Author Angelika Winn MD, [facility] Address [address] [place] [address] Phone Care Team Providers Care Fund Development Manager Name Role Phone PP Unavailable CCM Unavailable Summary Purpose Interface Exchange Insurance Providers Payer name Policy type / Coverage type Covered democrat ID Effective Begin Date Effective End Date [facility] [id number] 2015 Unknown Family history Sister Diagnosis Age At Onset No Known Diseases N/A Mother Diagnosis Age At Onset Arthritis Unknown Hyperlipidemia Unknown Depression Unknown Father Diagnosis Age At Onset defect Unknown Diabetes mellitus Type 2 Unknown Hyperlipidemia Unknown Hypertension Unknown Social History Social History Element Codes Description Effective Dates Marital status Unknown Jennifer 04/25/[address]: 2757554 Former smoker 02/10/[address]: 757395697 Never drinks alcohol 02/10/2015 Allergies, Adverse Reactions, [...] Fill Instructions prednisone 20 mg tablet RxNorm: 588011 2 Tablet(s) PO daily 02/09/2018 02/11/2018 Inactive Zithromax Z-Juni 250 mg tablet RxNorm: 844158 1 Tablet(s) PO UD 02/09/2018 02/13/2018 Inactive promethazine 25 mg tablet RxNorm: 332440 1 Tablet(s) PO TID as needed nausea 02/08/2018 02/12/2018 Inactive promethazine 25 mg tablet RxNorm: 965917 1 Tablet(s) PO TID as needed nausea 02/08/2018 02/07/2018 Inactive omeprazole 20 mg capsule,delayed release RxNorm: 018644 1 Capsule(s) PO BID 10/14/2017 01/11/2018 Inactive meclizine 25 mg tablet RxNorm: 688784 1 Tablet(s) PO TID as needed Dizziness 05/02/2017 05/01/2017 Inactive meclizine 25 mg tablet RxNorm: 146589 1 Tablet(s) PO TID as needed Dizziness 05/02/2017 05/31/2017 Inactive Prilosec OTC 20 mg tablet,delayed release RxNorm: 856754 1 Tablet(s) PO BID 05/02/2017 05/01/2017 Inactive Prilosec OTC 20 mg tablet,delayed release RxNorm: 873683 1 Tablet(s) PO BID 05/02/2017 05/31/2017 Inactive dapsone 100 mg tablet RxNorm: 422725 1 Tablet(s) PO daily 11/18/2016 11/27/2016 Inactive doxycycline hyclate 100 mg capsule RxNorm: 7339119 1 Capsule(s) PO BID 10/20/2016 11/18/2016 Inactive stop vitamin while on doxy omeprazole 20 mg capsule,delayed release RxNorm: 055300 1 Capsule(s) PO daily 10/18/2016 10/31/2016 Inactive doxycycline hyclate 100 mg capsule RxNorm: 0670727 1 Capsule(s) PO BID 10/18/2016 10/19/2016 Inactive stop vitamin while on doxy Saxenda 3 mg/0.5 mL (18 mg/3 mL) subcutaneous pen injector RxNorm: 9713032 3 Milliliter(s) SQ daily 05/21/2016 10/17/2016 Inactive Saxenda 3 mg/0.5 mL (18 mg/3 mL) subcutaneous pen injector RxNorm: 0194416 Milliliter(s) SQ 05/20/2016 05/20/2016 Inactive Kenalog 40 mg/mL suspension for injection RxNorm: 7776820 Milliliter(s) Inj 10/08/2015 10/08/2015 Inactive Zithromax Z-Juni 250 mg tablet RxNorm: 680392 1 Tablet(s) PO UD 10/08/2015 05/19/2016 Inactive labetalol 100 mg tablet RxNorm: 009457 1 Tablet(s) PO BID 04/29/2015 04/28/2015 Inactive labetalol 100 mg tablet RxNorm: 961828 1 Tablet(s) PO BID 04/29/2015 10/07/2015 Inactive Cipro 500 mg tablet RxNorm: 696093 1 Tablet(s) PO BID 04/26/2015 05/19/2016 Inactive Cipro 500 mg tablet RxNorm: 895280 1 Tablet(s) PO BID 04/26/2015 04/25/2015 Inactive Bactrim DS 800 mg-160 mg tablet RxNorm: 159749 1 Tablet(s) PO BID 02/10/2015 02/16/2015 Inactive metformin 500 mg tablet RxNorm: 833929 1 Tablet(s) PO BID No Start Date Active Vitamin C 500 mg tablet RxNorm: 060698 1 Tablet(s) PO daily No Start Date Active + DHA oral RxNorm: oral No Start Date 02/08/2018 Inactive multivitamin chewable tablet RxNorm: 1 Tablet(s) PO daily No Start Date 11/17/2016 Inactive Medication Administered Medication Codes Instructions Start Date Status Kenalog 40 mg/mL suspension for injection RxNorm: 4990849 Milliliter 10/08/2015 No longer Active Immunizations No [...] Item Code Result Date C A/B FLU 1558429 Influenza A Scr Negative 02/09/2018 C A/B FLU 7872432 Influenza B Scr Negative 02/09/2018 C A/B FLU 1237184 Influenza Intrp B AG:PRID:PT:NOSE:NOM:IF See Footnote 02/09/2018 Arjun Mtn Spot'D Fev Igg 014646 RMSF, IGG- TITER IFA 1:128 10/22/2016 Ehrlichia Chaffeensis Antibody Igg 867601 EHRLICHIA CHAFFEENSIS IGG <1:64 10/22/2016 [place] Spotted Fever Igg/Igm 941052 ARJUN MT SPOTTED FEVER IGM EIA . 10/22/2016 [place] Spotted Fever Igg/Igm 731642 RMSF, IGM 0.32 index 10/22/2016 [place] Spotted Fever Igg/Igm 821464 ARJUN OR SPOTTED FEVER IGG EIA FLEX . 10/22/2016 [place] Spotted Fever Igg/Igm 949240 RMSF, IGG SCREEN-FLEX Positive 10/22/2016 Ehrlichia Chaffeensis Antibody Igm 667426 EHRLICHIA CHAFFEENSIS IGM < 1:16 10/22/2016 [place]ym[place] Western Blot Serum 577987 B. BURGDORFERI, IGG WB Negative 10/21/2016 [place] Western Blot Serum 596728 B. BURGDORFERI, IGM WB Negative 10/21/2016 Lymes Disease Total Antibodies With Western Blot Reflex [id number] B. BURGDORFERI, IGG/IGM 1.27 LI 10/20/2016 Lymes Disease Total Antibodies With Western Blot Reflex [id number] 10/20/2016 Cbc With Differential Ord2 WBC 7.30 [...] 28.9 pg 10/18/2016 Cbc With Differential Ord2 [place]% 7.1 % 10/18/2016 Cbc With Differential Ord2 Eos% 3.3 % 10/18/2016 Cbc With Differential Ord2 MCHC 33.2 pg 10/18/2016 Cbc With Differential Ord2 PLT 282 K/ul 10/18/2016 Cbc With Differential Ord2 Baso% 0.5 % 10/18/2016 Cbc With Differential Ord2 Neut ABS# 4.37 K/ul 10/18/2016 Cbc With Differential Ord2 RDW 14.1 % 10/18/2016 Cbc With Differential Ord2 Lymph ABS# 2.13 K/ul 10/18/2016 Cbc With Differential Ord2 [place] ABS# 0.5 K/ul 10/18/2016 Cbc With Differential Ord2 Eos ABS# 0.2 K/ul 10/18/2016 Cbc With Differential Ord2 Baso ABS# 0.0 K/ul 10/18/2016 Tsh Ord6 hTSH II 2.02 uIU/mL 10/18/2016 Comp Metabolic Vfu474 NA 139 mEq/L 10/18/2016 Comp Metabolic Xrx072 K 4.2 mEq/L 10/18/2016 Comp Metabolic Ufm495 CL 103 mEq/L 10/18/2016 Comp Metabolic Oox340 CO2 26.0 mEq/L 10/18/2016 Comp Metabolic Nov451 ANION GAP 14 10/18/2016 Comp Metabolic Hka275 GLUCOSE 84 mg/dL 10/18/2016 Comp Metabolic Fva527 Creat 0.5 mg/dL 10/18/2016 Comp Metabolic Xea262 eGFR 158 ml/min/1.73m2 10/18/2016 Comp Metabolic Suw309 BUN 10 mg/dL 10/18/2016 Comp Metabolic Ock058 B/C Ratio 20.4 Ratio 10/18/2016 Comp Metabolic Vbm327 CALCIUM 9.3 mg/dL 10/18/2016 Comp Metabolic Cpl795 ALK PHOS 67 U/L 10/18/2016 Comp Metabolic Khj642 AST(SGOT) 11 U/L 10/18/2016 Comp Metabolic Wxb528 ALT(SGPT) 10 U/L 10/18/2016 Comp Metabolic Vru994 BILI T 0.4 mg/dL 10/18/2016 Comp Metabolic Gza533 ALBUMIN 4.1 g/dL 10/18/2016 Comp Metabolic Mdh137 TPRO 6.7 g/dL 10/18/2016 Comp Metabolic Giq770 GLOB 2.6 g/dL 10/18/2016 Comp Metabolic Euo822 A/G Ratio 1.6 Ratio 10/18/2016 Comp Metabolic Xgv117 Osmo 276 mOsmo 10/18/2016 Lipid Ord30 CHOL [...] 27.7 pg 04/25/2015 Cbc With Differential Ord2 [place]% 6.1 % 04/25/2015 Cbc With Differential Ord2 [...] 1.95 K/ul 04/25/2015 Cbc With Differential Ord2 [place] ABS# 0.6 K/ul 04/25/2015 Cbc With Differential Ord2 Eos ABS# 0.2 K/ul 04/25/2015 Cbc With Differential Ord2 Baso ABS# 0.0 K/ul 04/25/2015 Cbc With Differential Ord2 New Analyzer Notice Please note new ref ranges starting 03-05-2015 due to implemntation of new five part differential hematolgy analyzer. 04/25/2015 Comp Metabolic Efs805 NA 135 mEq/L 04/25/2015 Comp Metabolic Jsh247 K 4.0 mEq/L 04/25/2015 Comp Metabolic Mql204 CL 104 mEq/L 04/25/2015 Comp Metabolic Uxf576 CO2 25.0 mEq/L 04/25/2015 Comp Metabolic Yje893 ANION GAP 10 04/25/2015 Comp Metabolic Bsj257 GLUCOSE 88 mg/dL 04/25/2015 Comp Metabolic Jfa216 Creat 0.5 mg/dL 04/25/2015 Comp Metabolic Ssk043 eGFR 167 ml/min/1.73m2 04/25/2015 Comp Metabolic Tlb666 BUN 9 mg/dL 04/25/2015 Comp Metabolic Xfc431 B/C Ratio 19.1 Ratio 04/25/2015 Comp Metabolic Szv424 CALCIUM 9.1 mg/dL 04/25/2015 Comp Metabolic Wzw034 ALK PHOS 61 U/L 04/25/2015 Comp Metabolic Wjf258 AST(SGOT) 13 U/L 04/25/2015 Comp Metabolic Tzz398 ALT(SGPT) 12 U/L 04/25/2015 Comp Metabolic Ipi182 BILI T 0.5 mg/dL 04/25/2015 Comp Metabolic Amj034 ALBUMIN 4.3 g/dL 04/25/2015 Comp Metabolic Mgi182 TPRO 7.0 g/dL 04/25/2015 Comp Metabolic Ebn388 GLOB 2.7 g/dL 04/25/2015 Comp Metabolic Yxn094 A/G Ratio 1.6 Ratio 04/25/2015 Comp Metabolic Hyg484 Osmo 268 mOsmo 04/25/2015 HCG QUANT 8642303 HCG QUANT FOOTNOTE MIU/ML 08/05/2014 TSH 2966424 TSH 2.27 uIU/ML 08/05/2014 CBC 4562380 WBC 8.6 10e9/L 08/02/2014 CBC 7611597 RBC 4.49 10e12/L 08/02/2014 CBC 0607095 HGB 12.7 g/dL 08/02/2014 CBC 0962252 HCT DET 38.1 % 08/02/2014 CBC 3647500 MCV 84.9 fL 08/02/2014 CBC 9495396 MCH 28.3 pg 08/02/2014 CBC 0875089 MCHC 33.3 g/dL 08/02/2014 CBC 4969350 PLT 276 10e9/L 08/02/2014 CBC 6642166 MPV 10.4 fL 08/02/2014 CBC 3921191 FINN % 67.0 % 08/02/2014 CBC 1331367 LY % 24.3 % 08/02/2014 CBC 0104891 MON % 6.5 % 08/02/2014 CBC 3207702 EOS % 2.0 % 08/02/2014 CBC 1263192 BASO % 0.2 % 08/02/2014 CBC 3201798 RDW 14.2 % 08/02/2014 CBC 0536132 ABS FINN 5.76 10e9/L 08/02/2014 CBC 2561777 ABS LYMPH 2.09 10e9/L 08/02/2014 CBC 8945020 ABS MONO 0.56 10e9/L 08/02/2014 CBC 5945138 ABS EOS 0.17 10e9/L 08/02/2014 CBC 5625393 ABS BASO 0.02 10e9/L 08/02/2014 CBC 0375678 RDW-SD 43.2 fL 08/02/2014 Review of Systems [...] CPT-4: J3301 10/08/2015 ROUTINE VENIPUNCTURE CPT- 4: 39458 08/02/2014 CBC (COMPLETE CBC W/AUTO DIFF WBC) CPT-4: 09148 08/02/2014 TSH (ASSAY THYROID STIM HORMONE) CPT-4: 43105 08/02/2014 Vital Signs Date Vital 02/09/2018 Blood Pressure 1: 128/80 Code: 8480-6 BMI: 37.4 Code: 44049-7 Heart Rate 1: 86 bpm Height: 5'9" SpO2: 98% Temperature: 36.3 (C) / 97.3 (F) Weight: 253 lbs 04/22/2017 Blood Pressure 1: 126/74 Code: 8480-6 BMI: 38.4 Code: 53089-2 Heart Rate 1: 65 bpm Height: 5'9" SpO2: 98% Weight: 260 lbs 11/18/2016 Blood Pressure 1: 132/90 Code: 8480-6 BMI: 38.2 Code: 17983-2 Heart Rate 1: 71 bpm Height: 5'9" SpO2: 98% Temperature: 36.9 (C) / 98.5 (F) Weight: 259 lbs 10/18/2016 Blood Pressure 1: 122/80 Code: 8480-6 BMI: 38.1 Code: 51854-0 Heart Rate 1: 64 bpm Height: 5'9" SpO2: 98% Temperature: 37.1 (C) / 98.7 (F) Weight: 258 lbs 05/20/2016 Blood Pressure 1: 120/68 Code: 8480-6 BMI: 40.3 Code: 76196-8 Heart Rate 1: 66 bpm Height: 5'9" SpO2: 98% Weight: 273 lbs 10/08/2015 Blood Pressure 1: 122/68 Code: 8480-6 BMI: 41.3 Code: 83156-3 Heart Rate 1: 74 bpm Height: 5'9" SpO2: 98% Temperature: 36.9 (C) / 98.4 (F) Weight: 280 lbs 04/25/2015 Blood Pressure 1: 124/78 Code: 8480-6 BMI: 40.5 Code: 29917-5 Heart Rate 1: 76 bpm Height: 5'9" SpO2: 98% Weight: 274 lbs 02/27/2015 Blood Pressure 1: 128/82 Code: 8480-6 BMI: 40.8 Code: 45914-1 Heart Rate 1: 82 bpm Height: 5'9" SpO2: 99% Weight: 276 lbs 02/10/2015 Blood Pressure 1: 128/88 Code: 8480-6 BMI: 41.2 Code: 70066-6 Heart Rate 1: 94 bpm Height: 5'9" SpO2: 95% Weight: 279 lbs 08/02/2014 Blood Pressure 1: 118/80 Code: 8480-6 BMI: 39.9 Code: 18286-5 Heart Rate 1: 72 bpm Height: 5'9" SpO2: 99% Weight: 270 lbs 05/20/2014 Blood Pressure 1: 122/88 Code: 8480-6 BMI: 39.6 Code: 53972-5 Heart Rate 1: 72 bpm Height: 5'9" [...] data Encounters Encounter Performer Location Codes Date ([id number]) [id number] EST. PATIENT, LEVEL III Diagnosis: Acute laryngopharyngitis[ICD10: J06.0] Diagnosis: Cough[ICD10: R05] Diagnosis: Acute upper respiratory infection, unspecified[ICD10: J06.9] [facility] CPT-4: 59692 02/09/2018 ([id number]) PREV VISIT EST AGE 18-39 Diagnosis: Encounter for general adult medical examination with abnormal findings[ICD10: Z00.01] Diagnosis: Right upper quadrant pain[ICD10: R10.11] Diagnosis: Gastro-esophageal reflux disease without esophagitis[ICD10: K21.9] [facility] CPT-4: 30997 04/22/2017 ([id number]) 81054 EST. 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 PATIENT, LEVEL III Diagnosis: Rash and other nonspecific skin eruption[ICD10: R21] Diagnosis: Bitten or stung by nonvenomous insect and other nonvenomous arthropods, initial encounter[ICD10: W57.XXXA] Diagnosis: Gastro-esophageal reflux disease without esophagitis[ICD10: K21.9] Mila Winn MD, [facility] CPT-4: 88950 10/18/2016 ([id number]) Miscellaneous no charge Diagnosis: Dysuria[ICD10: R30.0] Mila Winn MD, [facility] CPT-4: 88520 07/08/2016 ([id number]) PREV VISIT EST AGE 18-39 Diagnosis: Encounter for general adult medical examination without abnormal findings[ICD10: Z00.00] Diagnosis: Other obesity due to excess calories[ICD10: E66.09] Gi Winn MD, [facility] CPT-4: 42990 05/20/2016 25098 EST. PATIENT, LEVEL IV Diagnosis: Other acute sinusitis[ICD10: J01.80] Diagnosis: Other allergic rhinitis[ICD10: J30.89] Diagnosis: Acute laryngopharyngitis[ICD10: J06.0] Mila Winn MD, [facility] CPT- 4: 73261 10/08/2015 ([id number]) 67918 EST. PATIENT, LEVEL III Diagnosis: Elevated blood-pressure reading, without diagnosis of hypertension[ICD10: R03.0] Diagnosis: Irregular menstruation, unspecified[ICD10: N92.6] Gi Winn MD, [facility] CPT-4: 42231 04/25/2015 ([id number]) 71932 EST. PATIENT, LEVEL III Diagnosis: Pain in right ankle and joints of right foot[ICD10: M25.571] Diagnosis: Ganglion, right ankle and foot[ICD10: M67.471] Angelika Winn MD, [facility] CPT-4: 55804 02/27/2015 48814 EST. PATIENT, LEVEL II Diagnosis: Cellulitis of abdominal wall[ICD10: L03.311] Gi Winn MD, [facility] CPT-4: 14723 02/10/2015 ([id number]) 48964 EST. PATIENT, LEVEL III Diagnosis: Elevated blood pressure[ICD9: 796.2] Diagnosis: Neck pain[ICD9: 723.1] Diagnosis: Missed period[ICD9: 626.4] Diagnosis: Fatigue[ICD9: 780.79] [facility] CPT-4: 08333 08/02/2014 ([id number]) PREV VISIT NEW AGE 18-39 Diagnosis: PREVENTIVE PHYSICAL EXAM[ICD9: V70.0] [facility] CPT-4: 44276 05/20/2014 Plan of Care Planned Activity Notes Codes Status Date Visit Plan: URI-sore throat -cough-flu negative -pt advised to increase fluids, vitamin C. Discussed natural and expected course of this diagnosis and need to alert me if symptoms do not follow expected course, or if any worse. RX sent to patient's pharmacy. 02/09/2018 Appointment: Gi Jones WPtel: [phone] [place] (15 min) Moderate 02/09/2018 Patient Education: Patient Medication Summary Completed 02/09/2018 Appointment: Gi Jones WPtel: [phone] [place] (15 min) Moderate 05/27/2017 Visit Plan: [...] improving. 04/22/2017 [phone] [phone] ([facility] min) Complex 04/22/2017 Patient Education: Patient Medication Summary Completed 04/22/2017 Visit Plan: Lyme disease, Arjun Mnt Spotted Fever - continue with doxycycline, start on dapsone, monitor symptoms, pt to call if symptoms do improve. If pt has increase in symptoms or fevers do not veronica, need to consider possibility of premature menopausal symptoms and check hormone levels. 11/18/2016 [facility] [phone] [phone] (15 min) Moderate 11/18/2016 Patient Education: Patient [...] improving. 10/18/2016 [phone] [phone] ([facility] min) Moderate 10/18/2016 Patient Education: Patient [...] functioning. 05/20/2016 Appointment: Gi Jones WPtel: [phone] [phone] [place] (30 min) Complex 05/20/2016 Patient [...] patient's pharmacy. 10/08/2015 Appointment: Gi Jones WPtel: [address] [place], [place] [phone] (15 min) Moderate 10/08/2015 Patient Education: Patient [...] Tourette's syndrome. 05/20/2014 Appointment: Angelika Winn WPtel: [address] [place], [place] [address] New Patient 05/20/2014 Patient Education: Patient Medication [...] week, and wear socks above surgical site. Bradleyenda . Well Adult - pt was counseled [...]
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
== END 2018-08-25 16:09 | disposition home or self-care (01) ==
LOC: EDUNIT# 14:37 → ER 14:38
DX: R55 Syncope and collapse (principal); R23.2 Flushing; Z87.19 Personal history of other diseases of the digestive system; Z88.0 Allergy status to penicillin; Z79.84 Long term (current) use of oral hypoglycemic drugs
CPT/HCPCS: 36415; 80053; 81000; 84439; 84443; 84484; 84703; 85025; 85379; 93005; 96374

== ENCOUNTER 2020-03-06 05:28 | Outpatient (RCR) | payer OTHER ==
[~2020-03-06] VITALS: Ht 175.3 cm; Wt 122.7 kg
[~2020-03-06 05:28] MED LIST changes: +ELAG200T PO; +FLUV25TA3 PO; -HYDR-3812 PO; +OMEP40CA27 PO; -OMEP40CA36 PO
== END 2020-03-06 11:44 | disposition home or self-care (01) ==
LOC: PREOP 05:28
PROVIDERS: ATTEND Obstetrics & Gynecology
DX: Z01.818 Encounter for other preprocedural examination (principal); N80.9 Endometriosis, unspecified; E30.1 Precocious puberty; Z20.822 Contact with and (suspected) exposure to COVID-19
CPT/HCPCS: 87081; 87635

== ENCOUNTER 2020-03-10 06:08 | Day surgery (SDC) | payer OTHER ==
[2020-03-10] VITALS (12 sets, daily range): BP systolic 108–136; BP diastolic 56–84
[~2020-03-10] VITALS: Ht 175.3 cm; Wt 122.7 kg
[2020-03-10] MEDS ORDERED: LACTATED RINGERS 1,000 ML IV ONE (06:15)
[2020-03-10] MEDS ORDERED: metroNIDAZOLE 500MG/100ML IVPB 100 ML IV ONE (06:15)
[2020-03-10] MEDS ORDERED: ceFAZolin 2 GM IV Premixed 50 ML IV ONE (06:15)
[2020-03-10] MEDS ORDERED: ONDANSETRON 4 MG/2 ML (SDV) Z0FRAN ONE ×2 (06:44→06:53)
[2020-03-10] MEDS ORDERED: SCOPOLAMINE 1.5 MG (TRANSDERM-SCOP) PATCH ONE (06:44)
[2020-03-10] MEDS ORDERED: FAMOTIDINE 20MG/2ML IV (PEPCID) ONE (06:45)
[2020-03-10] MEDS ORDERED: NEOSTIGMINE 3 MG/3 ML VIAL ONE (06:53)
[2020-03-10] MEDS ORDERED: ROCURONIUM 10 MG/ML 5 ML SYRINGE IV ONE ×2 (06:53→08:26)
[2020-03-10] MEDS ORDERED: proPOfol 200 MG/20 ML (DIPRIVAN) VIAL IV ONE (06:53)
[2020-03-10] MEDS ORDERED: GLYCOPYRROLATE 0.2 MG/ML (ROBINUL) 2 ML VIAL ONE (06:53)
[2020-03-10] MEDS ORDERED: SEVOFLURANE (ULTANE) 15 ML INHAL SOLN ONE (06:53)
[2020-03-10] MEDS ORDERED: LIDOCAINE PF 2% 5 ML (XYLOCAINE) VIAL ONE (06:53)
[2020-03-10] MEDS ORDERED: fentaNYL INJECTION 100 MCG/2 ML AMP ONE ×2 (06:54→06:59)
[2020-03-10] MEDS ORDERED: MIDAZOLAM 2 MG/2 ML (VERSED) VIAL ONE (06:54)
[2020-03-10] MEDS ORDERED: LIDOCAINE/EPI 1%-1:100,000 (XYLOCAINE) 50 ML ONE (06:59)
[2020-03-10] MEDS ORDERED: fentaNYL INJECTION 100 MCG/2 ML AMP IVP PRN (07:00)
[2020-03-10] MEDS ORDERED: SCOPOLAMINE 1.5 MG (TRANSDERM-SCOP) PATCH TOP ONE (07:00)
[2020-03-10] MEDS ORDERED: LACTATED RINGERS 1,000 ML IV PRN (07:00)
[2020-03-10] MEDS ORDERED: FAMOTIDINE 20MG/2ML IV (PEPCID) IV ONE (07:00)
[2020-03-10] MEDS ORDERED: ONDANSETRON 4 MG/2 ML (SDV) Z0FRAN IV ONE (07:00)
[2020-03-10 07:04] LABS: BASOPHILS % (AUTO) 1 % (0-10); EOSINOPHILS # (AUTO) 0.1 10^3/uL (0.0-0.3); EOSINOPHILS % (AUTO) 2 % (0-10); HEMATOCRIT 39 % (35-52); LYMPHOCYTES # (AUTO) 1.1 10^3/uL (1.0-4.0); LYMPHOCYTES % (AUTO) 21 % (12-44); MEAN CORPUSCULAR HEMOGLOBIN 28 pg (25-34); MEAN CORPUSCULAR HGB CONC 33 g/dL (32-36); MEAN CORPUSCULAR VOLUME 84 fL (80-99); MEAN PLATELET VOLUME 10.1 fL (9.0-12.2); MONOCYTES # (AUTO) 0.5 10^3/uL (0.0-1.0); MONOCYTES % (AUTO) 9 % (0-12); NEUTROPHILS # (AUTO) 3.6 10^3/uL (1.8-7.8); NEUTROPHILS % (AUTO) 67 % (42-75); PLATELET COUNT 207 10^3/uL (130-400); WHITE BLOOD COUNT 5.3 10^3/uL (4.3-11.0)
--- NOTE | 2020-03-10 07:10 | Progress Note-Pre Operative ---
Pre-Operative Progress Note H&P Reviewed The H&P was reviewed, patient examined and no changes noted. Date Seen by Provider: Mar 10, 2020 Time Seen by Provider: 07:10 Date H&P Reviewed: Mar 10, 2020 Time H&P Reviewed: 07:10 Pre-Operative Diagnosis: CPP, Endometriosis, Dyspareunia DANIELA CHEN DO Mar 10, 2020 07:10
[2020-03-10] MEDS ORDERED: ZOLPIDEM 5 MG (AMBIEN) TAB PO PRN (07:15)
[2020-03-10] MEDS ORDERED: SIMETHICONE 80 MG (MYLICON) CHEW PO PRN (07:15)
[2020-03-10] MEDS ORDERED: CHLORASEPTIC LOZENGE MM PRN (07:15)
[2020-03-10] MEDS ORDERED: ANTACID SUSP 30 ML UDC (MYLANTA) PO PRN (07:15)
[2020-03-10] MEDS ORDERED: ONDANSETRON 4 MG/2 ML (SDV) Z0FRAN IV PRN (07:15)
[2020-03-10] MEDS ORDERED: DOCUSATE SODIUM 100 MG (COLACE) CAP PO PRN (07:15)
[2020-03-10] MEDS ORDERED: HYDROcodone/APAP 7.5 MG/325 MG (LORTAB, LORCET PLUS) TABLET PO PRN (07:15)
[2020-03-10] MEDS: LACTATED RINGERS 1,000 ML IV PRN ×2 (07:20→10:19)
--- NOTE | 2020-03-10 07:25 | History & Physical-Surgical ---
HPO-Surgical History of Present Illness Chief Complaint: Patient here for RATLH w/ BSO, reports worsening status. No change in medical history since last seen. Diagnosis/Surgical Indication: CPP, Endometriosis, Dyspareunia Procedure: RATLH with BSO Date of Surgery: Mar 10, 2020 Weight (Pounds): 200 Weight (Ounces): 0.0 Height (Feet): 5 Height (Inches): 7.00 Allergies and Home Medications Allergies Coded Allergies: Penicillins (Unverified Allergy, Mild, 08/25/18) Home Medications Elagolix Sodium 200 Mg Tablet, 200 MG PO BID, (Reported) Fluvoxamine Maleate 25 Mg Tablet, 25 MG PO BID, (Reported) Patient Home Medication List Home Medication List Reviewed: Yes Past Akykxlq-Midjkv-Hahexw Hx Patient Social History Marrital Status: 2nd Hand Smoke Exposure: No Recent Hopitalizations: No Immunizations Up To Date Tetanus Booster (TDap): Unknown Pediatric: No Date of Influenza Vaccine: Nov 29, 2019 Seasonal Allergies Seasonal Allergies: Yes Surgeries Yes ( R ANKLE FX, DXLS) Orthopedic Respiratory No Cardiovascular No Neurological No ("ticks") Reproductive System Hx Reproductive Disorders: Yes (CPP) Sexually Transmitted Disease: No HIV/AIDS: No Female Reproductive Disorders: Menstrual Problems, Ovarian Cyst Genitourinary No Gastrointestinal Yes Gastroesophageal Reflux, Chronic Constipation, Chronic Diarrhea, Irritable Bowel Musculoskeletal Yes (RT ANKLE RECONSTRUCTION) Fractures Endocrine History of Endocrine Disorders: No HEENT History of HEENT Disorders: No Loss of Vision: Denies Hearing Impairment: Denies Cancer No Psychosocial History of Psychiatric Problem: Yes Behavioral Health Disorders: Anxiety Integumentary History of Skin or Integumenta: No Blood Transfusions History of Blood Disorders: No Adverse Reaction to a Blood Tr: No (N/A) Exam Vital Signs Capillary Refill : Labs Laboratory Tests Test 03/10/20 06:57 Range/Units White Blood Count 5.3 4.3-11.0 10^3/uL Red Blood Count 4.69 3.80-5.11 10^6/uL Hemoglobin 13.0 11.5-16.0 g/dL Hematocrit 39 35-52 % Mean Corpuscular Volume 84 80-99 fL Mean Corpuscular Hemoglobin 28 25-34 pg Mean Corpuscular Hemoglobin Concent 33 32-36 g/dL Red Cell Distribution Width 14.1 10.0-14.5 % Platelet Count 207 130-400 10^3/uL Mean Platelet Volume 10.1 9.0-12.2 fL Immature Granulocyte % (Auto) 0 % Neutrophils (%) (Auto) 67 42-75 % Lymphocytes (%) (Auto) 21 12-44 % Monocytes (%) (Auto) 9 0-12 % Eosinophils (%) (Auto) 2 0-10 % Basophils (%) (Auto) 1 0-10 % Neutrophils # (Auto) 3.6 1.8-7.8 10^3/uL Lymphocytes # (Auto) 1.1 1.0-4.0 10^3/uL Monocytes # (Auto) 0.5 0.0-1.0 10^3/uL Eosinophils # (Auto) 0.1 0.0-0.3 10^3/uL Basophils # (Auto) 0.0 0.0-0.1 10^3/uL Immature Granulocyte # (Auto) 0.0 0.0-0.1 10^3/uL General Appearance: Alert, Oriented X3 HEENT: Atraumatic Respiratory: Clear to Auscultation Cardiovascular: Regular Rate Abdominal: Normal Bowel Sounds Extremities: No Clubbing, No Edema Skin: No Rashes, No Significant Lesion Neuro: Normal Gait Psych/Mental Status: Mental Status NL Assessment/Plan Assessment and Plan CPP, Endometriosis, Dyspareunia Admission Diagnosis PO RATLH/BSO Admission Status: Observation Reason for Inpatient Admission: s/p RATLH w/ BSO DANIELA CHEN DO Mar 10, 2020 07:25
[2020-03-10] MEDS ORDERED: IBUP-844 PO (07:28)
[2020-03-10] MEDS ORDERED: SIME80TA16 PO (07:28)
[2020-03-10] MEDS ORDERED: DCS100C PO (07:28)
[2020-03-10] MEDS ORDERED: HYDR-34 PO (07:28)
--- NOTE | 2020-03-10 07:30 | Discharge Inst-Women's Service ---
Discharge Inst-Women's Serv Depart Medication/Instructions New, Converted or Re-Newed RX: RX on Chart Final Diagnosis PO RATLH w/ BSO Problems Reviewed?: Yes Consults/Follow Up Additional Follow Up: Yes Orders/Referrals DR. Yanes in 7-10 days and in 8 weeks Activity Activity: Activity as Tolerated Driving Instructions: No Driving for 1 Week NO SMOKING: NO SMOKING Nothing Inside Vagina: No Douching, No Bowleys Quarters, No Tampons Diet Discharge Diet: No Restrictions Symptoms to Report to : Bleeding Excessive, Pain Increased, Fever Over 101 Degrees F, Vaginal Bleeding Increase, Questions/Concerns For Any Problems or Questions: Contact Your Physician Skin/Wound Care Infection Signs and Symptoms: Increased Redness, Foul Odor of Wound, Increased Drainage, Skin Itchy or Has a Rash, Increased Swelling, Temperature Above 101 F Operative Area Clean and Dry: Keep Incision Clean/Dry Stitches/Weatherly/Dermabond: Dermabond, Care of Stitches Bathing Instructions: DANIELA Hawk DO Mar 10, 2020 07:30
[2020-03-10] MEDS: LACTATED RINGERS 1,000 ML IV SCH ×2 (08:24→10:39)
[2020-03-10] MEDS ORDERED: HYDROmorphone 2 MG/ML VIAL (DILAUDID) ONE (09:05)
[2020-03-10] MEDS ORDERED: KETOROLAC 30 MG/ML VIAL ONE (09:12)
[2020-03-10] MEDS ORDERED: morphine INJ 10 MG/ML 1ML (SYR OR VIAL) IVP ONE (09:45)
[2020-03-10] MEDS ORDERED: HYDROmorphone 2 MG/ML VIAL (DILAUDID) IV ONE (09:45)
[2020-03-10] MEDS ORDERED: PROMETHAZINE INJ 25 MG/ML (PHENERGAN) AMP IVP ONE (09:45)
[2020-03-10] MEDS: KETOROLAC 30 MG/ML VIAL IV PRN ×3 (09:48→21:57)
[2020-03-10] MEDS: ONDANSETRON 4 MG/2 ML (SDV) Z0FRAN IVP PRN ×2 (10:15→10:40)
--- NOTE | 2020-03-10 10:17 | Anesthesia-General Post-Op ---
General Patient Condition Mental Status/LOC: Same as Preop Cardiovascular: Satisfactory Nausea/Vomiting: Absent Respiratory: Satisfactory Pain: Controlled Complications: Absent Post Op Complications Complications None Follow Up Care/Instructions Patient Instructions None needed. Anesthesia/Patient Condition Patient Condition Patient is doing well, no complaints, stable vital signs, no apparent adverse anesthesia problems. MIRIAM HOYOS DO Mar 10, 2020 10:17
--- NOTE | 2020-03-10 10:30 | NUR ---
Pt to room 306 via bed accompanied by TUR[employer] G[employer]ER's. Report rec'd bedside from Peter Urrutia RN. Calf SCD's on and activated, VSS, assessment completed, IV fluids to pump. Frazier catheter patent, draining clear yellow urine to dependent drainage. Fresh ice water and sprite provided. Pt oriented to room and call light. Pt Spo2 on room air dropping to 88-89%. Supplemental O2 provided at 2L via nasal cannula. Pt Spo2 now 96% and above.
--- NOTE | 2020-03-10 10:53 | OPERATIVE REPORT ---
DATE OF SERVICE: PREOPERATIVE DIAGNOSES: 1. A 34-year-old female with a chronic pelvic pain. 2. Dysmenorrhea. 3. Dyspareunia. 4. Endometriosis. POSTOPERATIVE DIAGNOSES: 1. A 34-year-old female with a chronic pelvic pain. 2. Dysmenorrhea. 3. Dyspareunia. 4. Endometriosis. PROCEDURES PERFORMED: Robotic-assisted total laparoscopic hysterectomy with bilateral salpingo-oophorectomy. SURGEON: Carson Chen DO MOLDER TRIMMER: Jasmin Henry DNP, who was necessary for manipulation and retraction throughout the procedure. ANESTHESIA: General endotracheal. ESTIMATED BLOOD LOSS: Minimal. URINE OUTPUT: 150 mL clear at the end of the procedure. FLUIDS: 1600 mL of lactated Ringer's solution. FINDINGS: A normal appearing external female genitalia. The uterus has filmy adhesions on the serosal surface to bilateral ovaries. There are dense and filmy adhesions of the ovary into the ovarian fossa. The fallopian tube on the right side is grossly normal. The left-sided fallopian tube is adhesed to the descending sigmoid colon and to the left ovary. SPECIMEN SENT: Uterus, bilateral fallopian tubes and ovaries. INDICATIONS FOR PROCEDURE: This 34-year-old female is a patient, who I have been taking care of for the past 6 years. In the process of taking care of her, she had initially seen me in consultation for ongoing infertility. A workup of her infertility ended up allowing us to discover her significant endometriosis on diagnostic laparoscopy several years ago. In the process of doing this, we put the patient on long-term GnRH antagonist to help with her pain with intercourse as well as potentially allow for ; however, this never occurred. 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 We discussed in detail in vitro fertilization as an alternative for for the patient; however, her and her have plans to adopt rather than to carry children of her own. Due to her significant amounts of pain and pain that she was having with intercourse, it is affecting her marriage. She wishes to proceed with hysterectomy. Risks of the procedure was discussed with the patient in detail including risk of bleeding, infection, damage to surrounding structures including, but not limited to bowel, bladder, ureter, kidneys, possible need for operation, postoperative complications that may occur, recovery timeframe, risk from anesthesia and even . We also discussed in detail hormone replacement therapy in the form of estrogen replacement due to removal of the uterus and the fallopian tubes and ovaries. I discussed with the patient, the long-term risk of estrogen replacement therapy and the risks of being without estrogen starting at the age of 34. After all of her questions were answered and she was extensively counseled, consent was obtained in the preoperative area with her present and the patient was taken to the operating room. OPERATIVE REPORT IN DETAIL: Once in the operating room, general anesthesia was found to be adequate, she was placed in dorsal lithotomy position and prepped and draped in normal sterile fashion. A timeout was performed. A Frazier catheter was placed using sterile technique. A weighted speculum was inserted to the patient's vagina. A right-angled retractor was used to visualize the cervix, which was grasped at 12 o'clock position using a long Allis clamp and 0 Vicryl suture was then placed anterior lip of the cervix and the Allis clamp was removed. The Vicryl was then used as my retraction on the cervix. I then gently sound the uterine cavity, depth was found to be 8 cm. I then selected an 8 cm Lorena uterine manipulator tip and a 3 cm colpotomy ring. The manipulator tip was advanced into the uterus, where the balloon was deployed and the colpotomy ring advanced around the vaginal fornix. After this, all the other instruments other than the Lorena uterine manipulator were then removed from the patient's vagina. I performed a change of gloves, took my attention to the abdomen, where infraumbilically I infiltrated this area using 0.25% Marcaine. I made an 8 mm incision with a knife and directed Veress needle through the incision until intraperitoneal placement was confirmed; however, with insufflation attempts, high pressure was noted over 15 to 16 mmHg. Therefore, I placed a Veress needle at the mid costal line just below the costal margin on the abdomen. An OG tube was in place and verified as such by anesthesia. Once this Veress needle was placed, intraperitoneal placement was confirmed using saline drop test. I then proceeded with insufflation using CO2 gas and opening pressure of 3 mmHg was noted, proceeded to maximum pressure of 15 mmHg, at which point I placed an 8 mm laparoscopic da Jony camera trocar in my infraumbilical incision site. I was able to confirm placement into the peritoneum using the da Jony laparoscope. A brief scan of the upper abdominal anatomy appears grossly normal. I was able to identify my Veress insertion site and there was no evidence of damage upon this side as well. The Veress needle was then removed. I then had the patient placed in a steep Trendelenburg, where I was able to visualize all my pelvic anatomy as described in my findings above. I placed two lateral trocars using both 8 mm trocars 8 cm lateral to my infraumbilical trocar. Once these trocars were in place, I brought in the da Jony robot and docked it in appropriate fashion placing the vessel sealer in the left hand and monopolar essence in the right hand. I performed the following dissection bilaterally. There were extensive adhesions that had to be taken down in the process of doing this including starting with taking down the adhesions of the left fallopian tube to the sigmoid colon, which allowed the colon to fall out of the way in the posterior cul-de-sac to be visualized. I then started at the infundibulopelvic ligament, I bipolar cauterized and transected using the vessel sealer. I then had to liberate the ovary from the lateral pelvic sidewall. This was done with both blunt and sharp dissection. I limited my energy use due to the proximity of the ureter on both sides. Once the ovaries were free, I was able to continue my dissection by grasping the round ligament, bipolar cauterized and transected this using the vessel sealer. I then was able to grasp the entire broad ligament using the vessel sealer, bipolar cauterized and transected down to the level of the lower uterine segment, at which point I the anterior and posterior leaflets of the broad ligament. The anterior lip was taken around the anterior vaginal fornix, posterior leaflet dissection was taken around the posterior vaginal fornix. This allowed me to skeletonize the uterine vessels laterally, which I bipolar cauterized and transected using the vessel sealer. I then created a colpotomy at 12 o'clock position using monopolar essence and took this circumferentially around the vaginal fornix amputating the cervix away from its surrounding connection with the vagina. The cervix, uterus, bilateral fallopian tubes and ovaries were then removed through the vagina. I then closed the lateral vaginal apices of the vaginal cuff using 2-0 Vicryl suture in a [id number] fashion, colposuspending them to the uterosacral ligaments. I then closed the remainder of the vaginal cuff using 2-0 V-Loc in a running fashion, after which no active bleeding noted from any of my dissection planes. I then undocked the da Jony robot and proceeded with the remainder of the case laparoscopically. I copiously irrigated the pelvis using normal saline. Once again, there was no active bleeding noted from any of my dissection planes. I placed FloSeal hemostatic agent over all my planes of dissection. Once again, there was no active bleeding noted from any of my dissection planes. I then had the patient taken out of steep Trendelenburg, where I removed the lateral trocars under direct visualization of laparoscope. The infraumbilical trocar was left in place to release the remainder of the insufflation and to introduce 10 mL of 0.25% Marcaine into the peritoneal cavity for postoperative pain management. I then removed this trocar as well. The skin was reapproximated using 4-0 Monocryl interrupted subcuticular stitches. Dermabond was applied to incision and Band-Aids were placed over the incisions as well. Frazier catheter was left in place. The patient tolerated the procedure well and was sent to recovery area in stable condition. Lap and sponge count were correct at the end of the procedure. Instrument count was correct as well. Two grams of Ancef and 500 mg of Flagyl were given preoperatively for infection prophylaxis. Job ID: [id number] DocumentID: [id number] Dictated Date: 03/10/2020 10:10:11 Straw Hat Plunger Operator Date: 03/10/2020 10:53:15 Dictated By: CARSON CHEN DO
--- NOTE | 2020-03-10 12:00 | NUR ---
Pt more alert. Spo2 98% and above. Supplemental O2 removed at this time. Spo2 remains 96% and above.
[2020-03-11 01:00] VITALS: BP 106/56
[2020-03-11] MEDS ORDERED: IBUPROFEN 600 MG (MOTRIN) TAB PO SCH (04:00)
[2020-03-11] MEDS ORDERED: KETOROLAC 30 MG/ML VIAL ONE (04:41)
[2020-03-11 04:49] VITALS: BP 99/58
[2020-03-11] MEDS: KETOROLAC 30 MG/ML VIAL IV PRN (04:50)
--- NOTE | 2020-03-11 08:00 | NUR ---
Dr. Yanes here to see pt. Plan for discharge.
[2020-03-11 08:35] VITALS: BP 109/60
--- NOTE | 2020-03-11 09:30 | NUR ---
Discharge instructions given to pt per Mi Norris RN with copy provided along with prescriptions. Pt notified of follow up appts. Pt verbalizes understanding of instructions and signs to verify. No questions or concerns voiced.
--- NOTE | 2020-03-11 09:35 | NUR ---
Pt ambulates off unit to private vehicle accompanied by RN and all personal belongings. No s/s of distress noted.
== END 2020-03-11 09:35 | disposition home or self-care (01) ==
LOC: SDC 06:08 → WS 10:19 → SDC 03-11 09:35
PROVIDERS: ATTEND Obstetrics & Gynecology
DX: D25.1 Intramural leiomyoma of uterus (principal); D25.2 Subserosal leiomyoma of uterus; N83.202 Unspecified ovarian cyst, left side; N83.201 Unspecified ovarian cyst, right side; I10 Essential (primary) hypertension; N80.9 Endometriosis, unspecified; E66.9 Obesity, unspecified; Z68.39 Body mass index [BMI] 39.0-39.9, adult; Z79.899 Other long term (current) drug therapy; Z88.0 Allergy status to penicillin; Z87.891 Personal history of nicotine dependence; Z83.3 Family history of diabetes mellitus
CPT/HCPCS: 36415; 84703; 85025; 86850; 86900; 86901; 88307

== ENCOUNTER → 2021-06-01 | Outpatient (CLI) | payer OTHER ==
[~2021-06-01] MED LIST changes: +DOCU-239 PO; +FLUV25TA13 PO; -FLUV25TA3 PO; +IBUP-844 PO; -OMEP40CA27 PO; +OMEP40CA6 PO; +SIME80TA16 PO
--- NOTE | 2021-06-01 08:23 | Diagnostic Imaging Report ---
PROCEDURE: US Gallbladder. TECHNIQUE: Multiple real-time grayscale images were obtained over the right upper quadrant in various projections. INDICATION: Right upper quadrant pain with nausea and diarrhea. Liver is normal in size approximately 15 cm. The portal vein is patent and shows normal direction of flow. No discrete liver mass is detected. Gallbladder is without stones or sludge. No wall thickening or biliary duct dilatation is identified. The visualized pancreas is unremarkable. Aorta is nonaneurysmal. IVC is patent. A right kidney does show some slight dilatation of the renal pelvis. No calculi are seen. There is no ascites. IMPRESSION: 1. No evidence of cholelithiasis or acute cholecystitis. 2. Slight dilatation of the right renal pelvis. The study is otherwise unremarkable. Dictated by: Dictated on workstation # [id number]
== END ==
LOC: RAD 07:15
PROVIDERS: ATTEND Nurse Practitioner Family
DX: R10.11 Right upper quadrant pain (principal); R19.7 Diarrhea, unspecified
CPT/HCPCS: 76705

== ENCOUNTER → 2021-06-03 | Outpatient (CLI) | payer OTHER ==
--- NOTE | 2021-06-03 15:52 | Diagnostic Imaging Report ---
INDICATION: A dilated right renal pelvis noted on recent ultrasound. Study is performed for further evaluation. TIME OF EXAM: 2:38 PM 3 views of the abdomen were obtained. Bowel gas pattern is unremarkable. No definite radiopaque urinary tract calculi are identified. There is no free air. IMPRESSION: No acute feature is detected. Dictated by: Dictated on workstation # [id number]
== END ==
LOC: RAD 14:19
PROVIDERS: ATTEND Nurse Practitioner Family
DX: N28.89 Other specified disorders of kidney and ureter (principal)
CPT/HCPCS: 74019

== ENCOUNTER → 2021-06-04 | Outpatient (CLI) | payer OTHER ==
[~2021-06-04] MED LIST changes: +CATHETER FLUSH 10 ML SYR IVP PRN
--- NOTE | 2021-06-04 09:59 | Diagnostic Imaging Report ---
Clinical indication: Patient with right upper quadrant pain. Comparison: Right upper quadrant ultrasound dated 06/02/2011. Procedure: The patient was administered 5.23 millicuries of technetium 99m Choletec. After 60 minutes of the images, one can of Ensure was drink followed by another 60 minutes of imaging. A nuclear medicine hepatobiliary scan with ejection fraction was performed. Findings: There is prompt uptake and excretion of radiotracer by the liver. Activity is visible in the gallbladder by 10 minutes and the small bowel by 15 minutes. Ejection fraction of the gallbladder is calculated at 56% (normal >33%). The gallbladder visibly partially empties on the scans following the ingestion of Ensure. Impression: Unremarkable hepatobiliary scan with normal gallbladder ejection fraction. There is no scintigraphic evidence of significant cystic duct or common duct obstruction. Dictated by: Dictated on workstation # [id number]
== END ==
LOC: CARD 07:30
PROVIDERS: ATTEND Nurse Practitioner Family
DX: R10.11 Right upper quadrant pain (principal)
CPT/HCPCS: 78227; A9537

== ENCOUNTER → 2021-12-25 | Outpatient (CLI) | payer OTHER ==
[~2021-12-25] MED LIST changes: -CATHETER FLUSH 10 ML SYR IVP PRN
[2021-12-25 09:11] LABS: BILIRUBIN,URINE NEGATIVE (NEGATIVE); CLARITY,URINE CLEAR; COLOR,URINE YELLOW; GLUCOSE, URINE (UA) NEGATIVE (NEGATIVE); KETONES,URINE NEGATIVE (NEGATIVE); LEUKOCYTE ESTERASE ,URINE NEGATIVE (NEGATIVE); NITRITE,URINE NEGATIVE (NEGATIVE); PH,URINE 5.5 (5-9); PROTEIN,URINE NEGATIVE (NEGATIVE)
[2021-12-25 09:32] LABS: BACTERIA,URINE TRACE /HPF; RBC,URINE 0-2 /HPF
== END ==
LOC: LAB 08:52
PROVIDERS: ATTEND Family Medicine
DX: R30.0 Dysuria (principal)
CPT/HCPCS: 81000